=== PATIENT | female | born 1970 | race Caucasian/White ===

== ENCOUNTER 2020-04-14 15:20 | Emergency (ER) | payer BC, SELFPAY ==
[2020-04-14] VITALS (8 sets, daily range): BP systolic 103–125; BP diastolic 65–92; PULSE 68–106; RESP 13–34; TEMP 36.6; O2SAT 96–100
--- NOTE | ~2020-04-14 | XR_ITS ---
EXAMINATION: XR chest 1V portable EXAM DATE: 04/14/2020 17:42 INDICATION: Fever, cough, fatigue. Exposure to COVID 19. TECHNIQUE: Portable AP frontal chest x-ray was obtained. Comparison is made to prior examination from 04/21/2007. FINDINGS: There is small amount of right upper lobe ill-defined opacity, could be acute infectious pr ocess given history provided. Could be acute lung injury from SARS-CoV-2 given history provided. Ther e are no pleural effusions. The cardiomediastinal silhouette is within normal limits. There is no p neumothorax suspected. IMPRESSION: Probable small amount of acute right upper lobe airspace disease. 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
--- NOTE | 2020-04-14 17:45 | ECG_ITS ---
Measurements Intervals [place] Rate: 71 P: 40 AR: 156 QRS: 40 QRSD: 85 T: 68 QT: 373 QTc: 407 Interpretive Statements SINUS RHYTHM BASELINE ARTIFACT- V4 NORMAL ECG Electronically Signed On 04-14-2020 21:28:42 CDT by Edmundo June D.O.
[2020-04-14 18:10] LABS: Basophils Absolute Auto 0.1 K/mm3 (0.0-0.1); Basophils Percent Auto 0.7 % (0.2-1.2); Eosinophils Absolute Auto 0.1 K/mm3 (0-0.3); Eosinophils Percent Auto 0.8 % (0-4.4); Hematocrit 49.7 % (37.0-47.0); Hemoglobin 16.9 g/dL (12.0-15.0); Immature Granulocyte Absolute 0.03 K/mm3 (0.00-0.031); Immature Granulocyte Percent A 0.3 % (0-0.5); Lymphocytes Percent Auto 37.9 % (18.3-44.2); Mean Corpuscular Hemoglobin 31.5 pg (26-34); Mean Corpuscular Volume 92.6 fl (80-100); Mean Platelet Volume 10.6 fl (7.4-10.4); Monocytes Absolute Auto 0.5 K/mm3 (0.1-0.6); Neutrophils Absolute Auto 4.7 K/mm3 (1.3-6.7); Neutrophils Percent Auto 54.3 % (45.5-73.1); Platelet Count Result 305 k/mm3 (150-375); Red Blood Count 5.37 M/mm3 (4.2-5.4); Red Cell Distribution Width 12.4 % (11.5-14.5); White Blood Count 8.7 K/mm3 (4.5-10.0)
[2020-04-14 18:20] LABS: Prothrombin Time 12.5 Seconds (11.1-14.7)
[2020-04-14 18:21] LABS: Lactic Acid Reflex 1.5 mmol/L (0.7-2.1); Partial Thromboplastin Time 25.8 SECONDS (22.3-36.8)
--- NOTE | 2020-04-14 18:22 | ED.FEVER ---
HPI - Fever General Chief Complaint: Upper Respiratory Infection Stated Complaint: weakness, fevers, chest tightness Time Seen by Provider: 04/14/20 17:30 Source: patient Mode of arrival: ambulatory Limitations: no limitations History of Present Illness HPI Narrative: This is a 49 year old female that presents to the ER for fever x 3 days. Also reports shortness of breath which is chronic for her. Reports intermittent right sided chest pain. Reports she had a Covid test today which was negative. Denies cough, sore throat, congestion, abdominal pain, vomiting, or dysuria. Related Data Allergies Allergy/AdvReac Type Severity Reaction Status Date / Time No Known Allergies Allergy Verified 04/14/20 15:48 Review of Systems Review of Systems: Narrative: CONSTITUTIONAL: Reports fever ENT: Denies rhinorrhea, congestion, sore throat CARDIOVASCULAR: Reports chest pain. Denies edema. RESPIRATORY: Reports dyspnea. Denies cough GASTROINTESTINAL: Denies abdominal pain, nausea, vomiting GENITOURINARY: Denies dysuria All systems reviewed & are unremarkable except as noted in HPI and below PMFSH Past Medical History Medical History (Updated 04/14/20 @ 19:15 by Chika Norman PA-C) Bipolar disorder Social History Social History (Updated 04/14/20 @ 18:26 by Chika Norman PA-C) Smoking status: Current every day smoker Exam Narrative: Exam Narrative: GENERAL: Well-appearing, well-nourished, and in no acute distress. HEAD: Normocephalic, atraumatic. EYES: EOMI. ENT: Nares clear, no rhinorrhea or epistaxis. Mucous membranes moist. Oropharynx without tonsillar hypertrophy exudate or other lesions. Bilateral TMs pearly adamson non-bulging NECK: Supple. No adenopathy or masses. CHEST: Clear to auscultation. No respiratory distress. No wheezes rales or rhonchi HEART: Regular rate and rhythm. No murmur heard. Normal peripheral pulses. ABDOMEN: Soft, nontender, nondistended, normal active bowel sounds. EXTREMITIES: Normal range of motion. No edema. SKIN: Warm, dry, no rash. NEURO: No focal deficits. Alert and oriented x3. PSYCH: Normal mood and affect Course Vital Signs Vital signs: Vital Signs Temperature 97.9 F 04/14/20 15:46 Pulse Rate 106 H 04/14/20 15:46 Respiratory Rate 16 04/14/20 15:46 Blood Pressure 125/92 H 04/14/20 15:46 Pulse Oximetry 100 04/14/20 15:46 Temperature 97.9 F 04/14/20 15:46 Pulse Rate 77 04/14/20 18:00 Respiratory Rate 18 04/14/20 18:00 Blood Pressure 115/65 04/14/20 18:00 Pulse Oximetry 98 04/14/20 18:00 MDM - Fever MDM Narrative Medical decision making narrative: Patient presents to the ER for shortness of breath and fever. She is afebrile and nontoxic-appearing. Oxygen saturation has remained normal on room air. CBC is without leukocytosis. CMP is without acute findings. CRP and lactic are normal. D dimer and troponin are normal. Chest XR with evidence of possible pneumonia. Had a covid swab today which was negative. Patient will be treated with oral antibiotics. She is stable and felt appropriate for further outpatient evaluation. She was given warnings to return to the ER Lab Data Attestation: I reviewed the patient's lab results. Result diagrams: 04/14/20 18:05 04/14/20 18:05 Labs: Lab Results 04/14/20 04/14/20 04/14/20 Range/Units 18:05 18:05 18:05 WBC 8.7 (4.5-10.0) K/mm3 RBC 5.37 (4.2-5.4) M/mm3 Hgb 16.9 H (12.0-15.0) g/dL Hct 49.7 H (37.0-47.0) % MCV 92.6 (80-100) fl MCH 31.5 (26-34) pg MCHC 34.0 (32-36) g/dl RDW 12.4 (11.5-14.5) % Plt Count 305 (150-375) k/mm3 MPV 10.6 H (7.4-10.4) fl Immature Gran % (Auto) 0.3 (0-0.5) % Neut % (Auto) 54.3 (45.5-73.1) % Lymph % (Auto) 37.9 (18.3-44.2) % [place] % (Auto) 6.0 (2.6-8.5) % Eos % (Auto) 0.8 (0-4.4) % Baso % (Auto) 0.7 (0.2-1.2) % Lymph # (Auto) 3.30 H (0.9-3.2) K/mm3 [place] # (Auto) 0.5
[2020-04-14 18:23] LABS: D Dimer 0.48 ug/mL (<0.48)
[2020-04-14 18:27] LABS: Alanine Aminotransferase 19 U/L (4-35); Albumin Level 4.6 g/dL (3.5-5.1); Alkaline Phosphatase 85 U/L (38-126); Anion Gap 8 mmol/L (8-16); Aspartate Amino Transferase 24 U/L (14-36); Bilirubin,Total 0.7 mg/dL (0.2-1.3); Blood Urea Nitrogen 16 mg/dL (7-17); CRP < 0.5 mg/dL (<1.0); Carbon Dioxide 30 mmol/L (22-30); Chloride 103 mmol/L (98-107); Estimated CRCL calculation 73 ml/min; Estimated Glomerular Filt Rate 58; Glucose 99 mg/dL (65-105); Lipase 80 U/L (23-300); Sodium 141 mmol/L (137-145)
[2020-04-14 18:35] LABS: Troponin I < 0.012 ng/mL (0.000-0.034)
[2020-04-14 19:28] LABS: Add Urine Microscopic? NO; Appearance Urine Clear (Clear); Bilirubin Urine Negative (Negative); Blood Urine Negative (Negative); Color Urine Yellow (Yellow); Glucose Urine UA Negative (Negative); Ketones Urine Negative (Negative); Leukocyte Esterase Ur Negative LEU/UL (Negative); Mucus Urine Rare /lpf; Nitrate Urine Negative (Negative); Protein Urine Negative (Negative); RBC Urine 0-2 /hpf (0-2); Specific Grav Ur 1.025 (1.001-1.035); Squamous Epithelial Cell Urine Moderate /hpf (Few); Urobilinogen Urine Negative mg/dL (<2.0); WBC Urine 0-3 /hpf
== END 2020-04-14 19:47 | disposition home or self-care (01) ==
PROVIDERS: Physician Assistant; Emergency Provider Emergency Medicine; PCP Family Medicine
DX: J18.9 Pneumonia, unspecified organism (principal); F17.200 Nicotine dependence, unspecified, uncomplicated
CPT/HCPCS: 36415; 71045; 80053; 81003; 83605; 83690; 84484; 85025; 85380; 85610; 85730; 86140; 87804; 93005; 99284

== ENCOUNTER 2020-05-06 13:33 | Emergency (ER) | payer BC, SELFPAY ==
--- NOTE | ~2020-05-06 | XR_ITS ---
EXAMINATION: XR chest 2V DATE: 05/06/2020 13:58 INDICATION: Chest and back pain TECHNIQUE: AP and lateral views of the chest are obtained. COMPARISON: 04/14/2020 FINDINGS: The lungs are free of acute opacities. Previously described subtle opacity of the right upp er lobe does not persist. There is no pleural effusion or pneumothorax. The cardiomediastinal silhoue tte is normal. There is moderate thoracic spondylosis. IMPRESSION: 1. No acute cardiopulmonary abnormality. 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
[2020-05-06 13:45] VITALS: BP 125/74; PULSE 119; RESP 16; TEMP 36.9; O2SAT 98
--- NOTE | 2020-05-06 13:47 | ED.URI ---
HPI - URI/Sore Throat General Chief Complaint: Upper Respiratory Infection Stated Complaint: I think I still have pneumonia Source: patient Mode of arrival: ambulatory Limitations: no limitations History of Present Illness HPI Narrative: Brie Neal is a 49 yo female with a PMH of bipolar disorder , HTN, who comes to express care with same symptoms as when I had pneumonia a few weeks ago - back pain, fatigue Related Data Home Medications Medication Instructions Recorded Confirmed buspirone 10 mg PO DAILY 05/06/20 05/06/20 cariprazine [Vraylar] 6 mg PO DAILY 05/06/20 05/06/20 clonazepam 0.5 mg PO TID 05/06/20 05/06/20 clonazepam 1 mg PO BID 05/06/20 05/06/20 duloxetine 30 mg PO DAILY 05/06/20 05/06/20 quetiapine 25 mg PO DAILY 05/06/20 05/06/20 quetiapine 50 mg PO DAILY 05/06/20 05/06/20 Allergies Allergy/AdvReac Type Severity Reaction Status Date / Time No Known Allergies Allergy Verified 05/06/20 13:45 Review of Systems Review of Systems: Narrative: CONSTITUTIONAL: Denies fever, chills, sweats.feels poorly EYES: Denies visual changes, redness, discharge. ENT: Denies rhinorrhea, congestion, sore throat, otalgia. CARDIOVASCULAR: Denies chest pain, palpitations, edema.has back pain RESPIRATORY: Denies dyspnea, wheezing, cough GASTROINTESTINAL: Denies abdominal pain, nausea, vomiting, diarrhea. GENITOURINARY: Denies dysuria, hematuria, abnormal discharge SKIN: Denies rash or itching. NEUROLOGIC: Denies numbness, or focal weakness. PSYCHIATRIC: Denies anxiety or depression. [facility] Past Medical History Medical History (Updated 05/06/20 @ 14:28 by Radha Weldon CNP) Bipolar affect, depressed Bipolar disorder HTN (hypertension) Upper respiratory infection Family History Family History Other No active medical problems Social History Social History Smoking status: Current every day smoker Comments At time of signature, I agree with nursing past medical, surgical, social and family history. There is no relevant family history pertinent to the presenting complaint. Exam Narrative: Exam Narrative: GENERAL: This is a well-nourished, well-developed patient, in moderate distress. HEAD: normocephalic, atraumatic. EYES: PERRL. Sclera clear/white. Vision is grossly intact. EARS: External ears normal, auditory canals clear and without drainage, TMs normal without perforation. Hearing grossly intact. NOSE: External nose normal without nasal discharge, nares without redness, no rhinorrhea. THROAT: Mucous membranes moist, NECK: Neck supple, CARDIOVASCULAR: Tachycardic rate and rhythm without murmurs, gallops, or rubs. RESPIRATORY: Clear to auscultation. Breath sounds equal bilaterally. No wheezes, rales, or rhonchi. GASTROINTESTINAL: Abdomen soft, SKIN: warm, intact with no suspicious lesions or rash, good texture and turgor. NEURO: awake, alert, and oriented to person, place and time. There were no obvious focal neurologic abnormalities. Steady gait EXTREMITIES: Normal range of motion. BACK:tender mid-thoracic without deformity Course Course Emergency Course: Patient came here with back pain and not feeling well for the last couple of days; states she feels similar to when she was seen in the ER few weeks ago X-ray done- negative reading Started on prednsione and flexeril- refer for covid testing Vital Signs Vital signs: Vital Signs Temperature 98.4 F 05/06/20 13:45 Pulse Rate 119 H 05/06/20 13:45 Respiratory Rate 16 05/06/20 13:45 Blood Pressure 125/74 05/06/20 13:45 Pulse Oximetry 98 05/06/20 13:45 Temperature 98.4 F 05/06/20 13:45 Pulse Rate 119 H 05/06/20 13:45 Respiratory Rate 16 05/06/20 13:45 Blood Pressure 125/74 05/06/20 13:45 Pulse Oximetry 98 05/06/20 13:45 MDM - URI/Sore Throat Differential Diagnosis Differential diagnosis: Amanda
== END 2020-05-06 14:32 | disposition home or self-care (01) ==
PROVIDERS: Emergency Provider Nurse Practitioner; PCP Family Medicine
DX: J06.9 Acute upper respiratory infection, unspecified (principal); Z20.828 Contact with and (suspected) exposure to other viral communicable diseases; I10 Essential (primary) hypertension; F31.9 Bipolar disorder, unspecified
CPT/HCPCS: 71046; 99213; G0463

== ENCOUNTER 2020-05-10 06:39 | Outpatient (NON) | payer BC, SELFPAY ==
[2020-05-10 23:55] LABS: SARS-CoV-2 RNA PCR Negative
== END 2020-05-10 06:40 ==
LOC: ANHCOVIDDT 06:59
PROVIDERS: Visit Provider Nurse Practitioner
DX: J06.9 Acute upper respiratory infection, unspecified (principal); Z20.828 Contact with and (suspected) exposure to other viral communicable diseases
CPT/HCPCS: 87635; C9803; U0003

== ENCOUNTER 2020-10-02 08:58 | Outpatient (CLI) | payer BC, SELFPAY ==
--- NOTE | ~2020-10-02 | US_ITS ---
EXAMINATION: US thyroid DATE: 10/02/2020 09:52 INDICATION: Nontoxic single thyroid nodule. TECHNIQUE: Multiple ultrasound images of the thyroid were obtained. COMPARISON: Ultrasound 01/22/2019, 02/19/2019, 04/28/11 FINDINGS: The right thyroid lobe measures 6.5 x 1.3 x 2.0 cm. The left thyroid lobe measures 5.2 x 1.5 x 1.8 c m. In the right thyroid lobe, there is a 1.7 cm solid, hypoechoic, [id number]-[id number]-[id number] nodule with ill-d efined margin without echogenic foci (TI-RADS TR4), stable from 02/19/2019, when biopsy was benign. In the right thyroid lobe, there is a 1.1 cm solid, hypoechoic, [id number]-[id number] nodule with ill-defined margin without echogenic foci (TR4), stable from 04/28/11. IMPRESSION: 1. Stable thyroid nodules, likely benign. The scheduled biopsy was canceled. 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
== END 2020-10-02 08:59 | disposition home or self-care (01) ==
PROVIDERS: PCP Family Medicine; Visit Provider Internal Medicine Endocrinology, Diabetes & Metabolism
DX: E04.2 Nontoxic multinodular goiter (principal)
CPT/HCPCS: 76536

== ENCOUNTER 2021-04-07 09:29 | Emergency (ER) | payer MEDICARE, MEDICAID, SELFPAY ==
[2021-04-07 09:37] VITALS: BP 123/100; PULSE 115; RESP 16; TEMP 35.8; O2SAT 99
[2021-04-07 09:52] VITALS: BP 123/100; PULSE 115; RESP 16; TEMP 35.8; O2SAT 99
== END 2021-04-07 10:00 | disposition left against medical advice (07) ==
PROVIDERS: Emergency Provider Internal Medicine Hematology & Oncology; PCP Family Medicine
DX: Z53.21 Procedure and treatment not carried out due to patient leaving prior to being seen by health care provider (principal)
CPT/HCPCS: 99199

== ENCOUNTER 2021-04-07 10:30 | Emergency (ER) | payer MEDICARE, MEDICAID, SELFPAY ==
--- NOTE | ~2021-04-07 | US_ITS ---
US venous doppler LE RT DATE: 04/07/2021 12:03 INDICATION: Right knee and calf pain, edema TECHNIQUE: Real-time imaging and Doppler analysis of the veins of the right lower extremity COMPARISON: None FINDINGS: The right greater saphenous vein is patent. There is spontaneous and phasic flow and normal augmentation and color flow signal and normal compression of the deep veins of the right leg. IMPRESSION: Negative Reviewed, dictated and finalized at Location A. 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 IMPRESSION: Negative
--- NOTE | ~2021-04-07 | XR_ITS ---
XR knee RT min 4V DATE: 04/07/2021 11:47 INDICATION: Right knee posterolateral pain and swelling TECHNIQUE: 4 views including crosstable lateral COMPARISON: None FINDINGS: There is prominent suprapatellar knee joint effusion. There is mild periarticular spurring of the patella. There is enthesopathy of the superior pole of th e patella at the quadriceps tendon insertion. There is mild periarticular spurring at the medial compartment, mild loss of height of the department joint space. No radiopaque intra-articular loose body or chondrocalcinosis. No fracture, dislocation, periosteal reaction or bone destruction is detected. 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
[2021-04-07 10:33] VITALS: BP 138/86; PULSE 105; RESP 22; TEMP 36.4; O2SAT 100
[2021-04-07 11:01] VITALS: BP 138/86; PULSE 98; RESP 20; O2SAT 100
[2021-04-07 11:33] LABS: Basophils Absolute Auto 0.1 K/mm3 (0.0-0.1); Basophils Percent Auto 0.8 % (0.2-1.2); Eosinophils Absolute Auto 0.1 K/mm3 (0-0.3); Eosinophils Percent Auto 1.7 % (0-4.4); Hematocrit 41.1 % (37.0-47.0); Hemoglobin 13.7 g/dL (12.0-15.0); Immature Granulocyte Absolute 0.02 K/mm3 (0.00-0.031); Immature Granulocyte Percent A 0.3 % (0-0.5); Lymphocytes Absolute Auto 2.99 K/mm3 (0.9-3.2); Lymphocytes Percent Auto 42.3 % (18.3-44.2); Mean Corpuscular HGB Conc 33.3 g/dl (32-36); Mean Corpuscular Hemoglobin 31.6 pg (26-34); Mean Corpuscular Volume 94.7 fl (80-100); Monocytes Absolute Auto 0.5 K/mm3 (0.1-0.6); Monocytes Percent Auto 6.9 % (2.6-8.5); Neutrophils Absolute Auto 3.4 K/mm3 (1.3-6.7); Platelet Count Result 253 k/mm3 (150-375); Red Blood Count 4.34 M/mm3 (4.2-5.4); Red Cell Distribution Width 13.8 % (11.5-14.5); White Blood Count 7.1 K/mm3 (4.5-10.0)
--- NOTE | 2021-04-07 11:33 | ED.EXTPRO ---
HPI - Extremity Problem General Chief complaint: Extremity Problem,Nontraumatic Stated complaint: R leg pain Time Seen by Provider: 04/07/21 11:25 Source: patient Mode of arrival: ambulatory Limitations: no limitations History of Present Illness HPI Narrative: This is a 50 year old female that presents to the ER for right lower extremity pain x 5 days. Reports pain and swelling in the right knee. Also notes swelling and pain in the right calf. Pain is worse with movement and relieved with rest. Denies fever, erythema, decreased ROM, or numbness. Related Data Home Medications Medication Instructions Recorded Confirmed buspirone 10 mg PO DAILY 05/06/20 04/07/21 cariprazine [Vraylar] 6 mg PO DAILY 05/06/20 04/07/21 clonazepam 0.5 mg PO TID 05/06/20 04/07/21 duloxetine 30 mg PO DAILY 05/06/20 04/07/21 quetiapine 50 mg PO DAILY 05/06/20 04/07/21 atorvastatin 20 mg tablet 20 mg PO QHS 12/29/20 04/07/21 calcium carbonate 600 mg calcium 600 mg PO DAILY 12/29/20 04/07/21 (1,500 mg) tablet cholecalciferol (vitamin D3) 50 50 mcg PO DAILY 12/29/20 04/07/21 mcg (2,000 unit) capsule divalproex 500 mg tablet,extended 500 mg PO DAILY 12/29/20 04/07/21 release 24 hr folic acid 400 mcg tablet 0.4 mg PO DAILY 12/29/20 04/07/21 levothyroxine 50 mcg tablet 50 mcg PO DAILY 12/29/20 04/07/21 magnesium oxide 400 mg PO DAILY 12/29/20 04/07/21 metformin 500 mg tablet 500 mg PO BID 12/29/20 04/07/21 prazosin 1 mg capsule 1 mg PO QHS 12/29/20 04/07/21 venlafaxine 37.5 mg 37.5 mg PO DAILY 12/29/20 04/07/21 capsule,extended release 24 hr Allergies Allergy/AdvReac Type Severity Reaction Status Date / Time No Known Allergies Allergy Verified 04/07/21 11:00 Review of Systems Review of Systems: CONSTITUTIONAL: Denies fever SKIN: Denies rash MUSCULOSKELETAL: Reports joint pain, and myalgia. NEUROLOGIC: Denies numbness, or weakness. All systems reviewed & are unremarkable except as noted in HPI and below PMFSH Past Medical History Medical History Bipolar affect, depressed Bipolar disorder DDD (degenerative disc disease) Diabetes HTN (hypertension) Hypothyroidism Upper respiratory infection Family History Family History Father Alcohol abuse Hypertension Cerebrovascular accident Acute myocardial infarction Mother Alcohol abuse Asthma Son Non-Hodgkins lymphoma Grandparent Lung cancer non-smoker Grandparent Stomach cancer Other No active medical problems Social History Social History Smoking packs per day: 1 Smoking cigarettes per day: 20.0 Years smoked: 35 Smoking pack-years: 35.00 Tobacco type: cigarettes Alcohol intake: never Substance use: current Substance use type: marijuana Other substance usage details: daily Agree to blood products: Yes Exam Narrative: GENERAL: Well-appearing, well-nourished, and in no acute distress. HEAD: Normocephalic, atraumatic. EYES: EOMI. CHEST: Clear to auscultation. No respiratory distress. No wheezes rales or rhonchi HEART: Regular rate and rhythm. No murmur heard. Normal peripheral pulses. EXTREMITIES: Normal range of motion. No erythema or warmth of the right leg. Mild edema about the right calf, tender to palpation. Normal DP pulses. Normal sensation SKIN: Warm, dry, no rash. NEURO: No focal deficits. Alert and oriented x3. PSYCH: Normal mood and affect Course Vital Signs Vital signs: Vital Signs Temperature 97.6 F 04/07/21 10:33 Pulse Rate 105 H 04/07/21 10:33 Respiratory Rate 22 H 04/07/21 10:33 Blood Pressure 138/86 04/07/21 10:33 Pulse Oximetry 100 04/07/21 10:33 Temperature 97.6 F 04/07/21 10:33 Pulse Rate 98 04/07/21 11:01 Respiratory Rate 20 04/07/21 11:01 Blood Pressure 138/86 04/07
[2021-04-07 11:42] LABS: INR 0.8; Prothrombin Time 11.1 Seconds (11.1-14.7)
[2021-04-07 11:43] LABS: Alanine Aminotransferase 19 U/L (4-35); Albumin Level 4.4 g/dL (3.5-5.1); Alkaline Phosphatase 77 U/L (38-126); Anion Gap 6 mmol/L (8-16); Aspartate Amino Transferase 22 U/L (14-36); Bilirubin,Total 0.4 mg/dL (0.2-1.3); Blood Urea Nitrogen 13 mg/dL (7-17); Calcium 9.2 mg/dL (8.4-10.2); Carbon Dioxide 27 mmol/L (22-30); Chloride 105 mmol/L (98-107); Estimated CRCL calculation 80 ml/min; Estimated Glomerular Filt Rate > 60; Glucose 110 mg/dL (65-110); Partial Thromboplastin Time 25.8 SECONDS (22.3-36.8); Sodium 138 mmol/L (137-145)
[2021-04-07 11:52] LABS: NT Pro B Type Natriuretic Pept 32 pg/mL (5-100)
[2021-04-07] MEDS: HYDROcodone/acetaminophen (*CRX) 5-325 MG TABLET 1 TAB PO (12:00)
[2021-04-07 12:12] LABS: CRP < 0.5 mg/dL (<1.0)
[2021-04-07 12:19] LABS: Erythrocyte Sedimentation Rate 28 mm/hr (0-20)
[2021-04-07 13:49] VITALS: BP 142/66; PULSE 80; RESP 18; O2SAT 99
== END 2021-04-07 13:50 | disposition home or self-care (01) ==
PROVIDERS: Physician Assistant; Emergency Provider Emergency Medicine; PCP Family Medicine
DX: M70.51 Other bursitis of knee, right knee (principal); E11.9 Type 2 diabetes mellitus without complications; I10 Essential (primary) hypertension; E03.9 Hypothyroidism, unspecified; F17.210 Nicotine dependence, cigarettes, uncomplicated; Z79.84 Long term (current) use of oral hypoglycemic drugs
CPT/HCPCS: 36415; 73564; 80053; 83880; 85025; 85380; 85610; 85652; 85730; 86140; 93971; 99284; A9270

== ENCOUNTER 2021-04-11 07:42 | Outpatient (CLI) | payer MEDICARE, MEDICAID, SELFPAY ==
--- NOTE | 2021-04-23 16:28 | WPDSLEEPSTUD ---
Sleep Study Date of Study: 04/11/21 <Holly Brannon, DO - Last Filed: 04/23/21 17:35> Ordering Provider: Tiarra CondeMD <Holly Brannon, - Last Filed: 04/23/21 17:35> Interpreting Physician: Holly Brannon DO <Holly Brannon, DO - Last Filed: 04/23/21 17:35> Sleep Study Type: Polysomnogram <Holly Brannon, DO - Last Filed: 04/23/21 17:35> Height: 1.7 m <Holly Brannon DO - Last Filed: 04/23/21 17:35> Weight: 108.862 kg <Holly Brannon DO - Last Filed: 04/23/21 17:35> Body Mass Index: 37.5 <Holly Brannon DO - Last Filed: 04/23/21 17:35> Neck Circumference (inches): 15 <Holly Brannon DO - Last Filed: 04/23/21 17:35> [place]: 16 <Holly Brannon DO - Last Filed: 04/23/21 17:35> Reason for Sleep Study Unrefreshing sleep and excessive daytime sleepiness. <Holly Brannon, DO - Last Filed: 04/23/21 17:35> Sleep History The patient is a 50-year-old female with bipolar disorder, type 2 diabetes and hypothyroidism that had a sleep study ordered by her primary care for sleep disturbances. The patient states that she gets electric shocks and peers seizure does in her legs and feet. She also gets nightmares if she does not take her prazosin. She has tried muscle relaxants and gabapentin for the leg pain without relief She states that this is been going on for more than 2 years. She states that she rarely awakens from sleep short of breath. She denies awakening at night with heartburn, belching or cough. She denies snoring loudly enough that others complain. She often has trouble sleeping when she has cold. She denies waking up gasping for air throughout the night. She denies having breathing problems at night observed by others. She constantly sweats excessively at night. She occasionally has heart palpitations throughout the night. She frequently falls asleep during the day but never while driving. She occasionally feels unable to move when waking up or falling asleep. She occasionally experiences vivid dreamlike scenes upon awakening or falling asleep. She occasionally has nightmares. She frequently has thoughts racing through her mind. She occasionally feels sad or depressed and frequently feels anxious. She frequently has muscular tension and notices parts of her body jerk. She occasionally kicks throughout the night. She frequently experiences crawling and aching feelings in her legs as well as leg pain during the night. She rarely grinds her teeth during sleep and never awakens with jaw pain in the morning. She is constantly bothered by pain during the day and is frequently awakened by pain during the night. She frequently wakes up feeling stiff in the morning with sore and achy muscles. The patient goes to bed any time from 11:00 p.m. to 2:00 a.m. on both the weekdays and weekends. She is unsure how long it takes her to fall asleep. She wakes up 1-2 times throughout the night to use the restroom. She is able to go right back to sleep after awakening. She wakes any time from 6-7 a.m. on both the weekdays and weekends. She usually gets 6 hours of sleep per night. She will stay in bed for 30-60 minutes after awakening. She currently lives with her mother, father, son, [id number] and 2 grandchildren. She does not currently work. She does not drink any caffeinated beverages within 2 hours of going to bed. She does not engage in physical exercise before bedtime. she will watch television before falling asleep. She will take naps in the afternoon or evening but they are not refreshing. She currently smokes half a pack of cigarettes per day. She will drink 3 Pepsi's per day. Shestates that she uses marijuana heavily. <Holly Brannon DO - Last Filed: 04/23/21 17:35> [facility] Past Medical History Medical History: Medical History B
[2021-04-23 16:52] VITALS: BMI 37.5
== END 2021-04-12 07:03 | disposition home or self-care (01) ==
LOC: ANHCSM 07:43
PROVIDERS: PCP Family Medicine; Visit Provider Internal Medicine Endocrinology, Diabetes & Metabolism
DX: G47.34 Idiopathic sleep related nonobstructive alveolar hypoventilation (principal); G47.61 Periodic limb movement disorder
CPT/HCPCS: 95810

== ENCOUNTER 2021-04-30 15:42 | Outpatient (CLI) | payer MEDICARE, MEDICAID, SELFPAY ==
--- NOTE | ~2021-04-30 | MR_ITS ---
EXAMINATION: MR lumbar spine wo con EXAM DATE: 04/30/2021 17:03 INDICATION: Lumbar radiculopathy. Low back pain, chronic. TECHNIQUE: Multi-sequential, multiplanar MR images of the lumbar spine were obtained without contrast . Sagittal T1, T2, T2 fat saturation images. Axial T2 weighted images. There is no prior study for comparison. FINDINGS: There is mild to moderate disc disease L-1-2, L2-3, L5-S1. There is 2 mm retrolisthesis L4 on L5, 3 mm retrolisthesis L5 on S1. The conus medullaris terminates at the L1/2 level and has normal signal intensity and morphology. There are no suspicious marrow signal abnormalities. Paraspinal so ft tissue is unremarkable. Level by level evaluation: T12-L1: Disc does not extend beyond the endplate margin. Facet arthropathy: Mild. Neural foraminal stenosis: No stenosis. Central canal stenosis: No stenosis. L1-L2: There is a mild diffuse disc bulge. Facet arthropathy: Mild to moderate. Neural foraminal stenosis: No stenosis. Central canal stenosis: No stenosis. L2-L3: There is a mild to moderate diffuse disc bulge. Facet arthropathy: Moderate. Neural foraminal stenosis: Mild bilateral. Central canal stenosis: Mild. L3-L4: There is a mild to moderate diffuse disc bulge. Facet arthropathy: Moderate. Neural foraminal stenosis: Mild bilateral. Central canal stenosis: Mild. L4-L5: There is a mild to moderate diffuse disc bulge. Facet arthropathy: Moderate. Neural foraminal stenosis: Mild to moderate bilateral. Central canal stenosis: Mild to moderate. L5-S1: There is a mild to moderate diffuse disc bulge. Facet arthropathy: Moderate. Neural foraminal stenosis: Moderate. Central canal stenosis: Mild. IMPRESSION: Up to moderate lumbar facet arthropathy and L5-S1 neural foraminal stenosis. 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
== END 2021-04-30 15:43 | disposition home or self-care (01) ==
LOC: ANHIMG 15:45
PROVIDERS: PCP Family Medicine; Visit Provider Nurse Practitioner Family
DX: M54.16 Radiculopathy, lumbar region (principal); M12.88 Other specific arthropathies, not elsewhere classified, other specified site; M48.07 Spinal stenosis, lumbosacral region
CPT/HCPCS: 72148

== ENCOUNTER 2021-05-30 13:34 | Outpatient (CLI) | payer MEDICARE, MEDICAID, SELFPAY ==
--- NOTE | ~2021-05-30 | XR_ITS ---
EXAMINATION: XR chest 2V 05/30/2021 15:12 INDICATION: Dyspnea, shortness of breath PROCEDURE: 2 view chest COMPARISON: Comparison to multiple prior studies sequentially, with oldest reviewed study dated 07/23. FINDINGS: The lungs are clear. The cardiomediastinal silhouette is within normal limits. There are no pleural effusions. There is no pneumothorax suspected. IMPRESSION: 1: NO ACUTE CARDIOPULMONARY DISEASE. Reviewed, dictated and finalized at location B. 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
--- NOTE | 2021-05-31 10:44 | WPDPFTINT ---
PFT Procedure Performed PFT Procedure Performed Spirometry with Pre/Post Bronchodilator Plethysmography (Lung Vol) Diffusing Cap (DLCO) Flow Vol Loop PFT Interpretation Lung volumes were measured with the body plethysmography method. The diminished expiratory reserve volume is due to obesity. The remaining lung volumes are unremarkable. Spirometry showed normal expiratory flow rates and a normal FEV1 to FVC ratio 72%. Following administration of a bronchodilator there was significant increase in the expiratory flow rates. Lung diffusion capacity is mildly reduced at 69% predicted. The flow volume loop is suggestive of a small airway disease. The significant response to bronchodilator may also indicate underlying obstructive airway disease. Clinical correlation advised. Impression: Spirometry and lung volumes within normal range. Mild reduction in lung diffusion capacity. Significant response to bronchodilators and flow volume loop may suggest mild underlying obstructive airway disease in the form of small airway disease. Clinical correlation advised.
== END 2021-05-30 13:35 | disposition home or self-care (01) ==
LOC: ANHPFT 13:38
PROVIDERS: PCP Family Medicine; Visit Provider Internal Medicine Endocrinology, Diabetes & Metabolism
DX: R06.00 Dyspnea, unspecified (principal)
CPT/HCPCS: 71046; 94060; 94726; 94729

== ENCOUNTER 2021-08-10 15:16 | Outpatient (CLI) | payer MEDICARE, MEDICAID, SELFPAY ==
[2021-08-10 16:32] LABS: Basophils Absolute Auto 0.1 K/mm3 (0.0-0.1); Eosinophils Absolute Auto 0.1 K/mm3 (0-0.3); Eosinophils Percent Auto 1.2 % (0-4.4); Hematocrit 45.3 % (37.0-47.0); Hemoglobin 15.2 g/dL (12.0-15.0); Immature Granulocyte Absolute 0.04 K/mm3 (0.00-0.031); Immature Granulocyte Percent A 0.4 % (0-0.5); Lymphocytes Percent Auto 40.5 % (18.3-44.2); Mean Corpuscular HGB Conc 33.6 g/dl (32-36); Mean Corpuscular Hemoglobin 31.4 pg (26-34); Mean Corpuscular Volume 93.6 fl (80-100); Mean Platelet Volume 10.8 fl (7.4-10.4); Monocytes Absolute Auto 0.6 K/mm3 (0.1-0.6); Monocytes Percent Auto 6.7 % (2.6-8.5); Neutrophils Absolute Auto 4.6 K/mm3 (1.3-6.7); Neutrophils Percent Auto 50.2 % (45.5-73.1); Platelet Count Result 276 k/mm3 (150-375); Red Blood Count 4.84 M/mm3 (4.2-5.4); Red Cell Distribution Width 13.3 % (11.5-14.5); White Blood Count 9.1 K/mm3 (4.5-10.0)
[2021-08-10 16:43] LABS: Blood Urea Nitrogen 16 mg/dL (7-17); Estimated Glomerular Filt Rate 43; Magnesium 1.9 mg/dL (1.6-2.3)
[2021-08-10 16:52] LABS: NT Pro B Type Natriuretic Pept 21 pg/mL (5-100)
[2021-08-10 16:55] LABS: Iron 88 ug/dL (37-170)
[2021-08-10 17:05] LABS: Percent Iron Saturation 29 % (20-50)
[2021-08-10 17:08] LABS: Erythrocyte Sedimentation Rate 14 mm/hr (0-20)
[2021-08-10 18:21] LABS: Folic Acid 18.7 ng/mL (2.76->20); Vitamin B12 > 1000.0 pg/mL (239-931)
[2021-08-13 15:25] LABS: Immunoglobulin G, Serum 1391 mg/dL (600-1640); Immunoglobulin G1 732 mg/dL (382-929); Immunoglobulin G2 354 mg/dL (241-700); Immunoglobulin G3 43 mg/dL (22-178); Immunoglobulin G4 132.7 mg/dL (4.0-86.0)
[2021-08-14 07:18] LABS: Immunoglobulin E 39 kU/L (<=114)
[2021-08-14 18:57] LABS: NIL 0.01 IU/mL; Quantiferon TB Plus, 1T NEGATIVE (NEGATIVE)
== END 2021-08-10 15:17 | disposition home or self-care (01) ==
LOC: ANHLAB 15:29
PROVIDERS: PCP Family Medicine; Visit Provider Internal Medicine Pulmonary Disease
DX: R05.3 Chronic cough (principal); D89.9 Disorder involving the immune mechanism, unspecified; E83.42 Hypomagnesemia; T78.40XA Allergy, unspecified, initial encounter; R06.00 Dyspnea, unspecified; D50.8 Other iron deficiency anemias
CPT/HCPCS: 36415; 82104; 82565; 82607; 82728; 82746; 82784; 82785; 82787; 83540; 83550; 83735; 83880; 84446; 84520; 85025; 85652; 86003; 86480

== ENCOUNTER 2021-08-31 09:21 | Outpatient (CLI) | payer MEDICARE, MEDICAID, SELFPAY ==
--- NOTE | ~2021-08-31 | US_ITS ---
US retroperitoneal comp 08/31/2021 11:18 Procedure: Realtime transabdominal ultrasound of the kidneys and bladder. Indication: Chronic kidney disease. Comparison: CT dated 08/14/2005 Findings: Renal echotexture is normal bilaterally without hydronephrosis, contour deforming mass or r enal calculus. The right kidney measures 11.2 cm and left kidney measures 11.1 cm. Bladder within no rmal limits. Impression: 1: Unremarkable renal ultrasound. No stones, masses or hydronephrosis. 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 No stones, masses or hydronephrosis.
[2021-08-31 10:18] LABS: Alanine Aminotransferase 18 U/L (4-35); Albumin Level 4.4 g/dL (3.5-5.1); Alkaline Phosphatase 95 U/L (38-126); Anion Gap 7 mmol/L (8-16); Aspartate Amino Transferase 25 U/L (14-36); Basophils Absolute Auto 0.1 K/mm3 (0.0-0.1); Basophils Percent Auto 0.9 % (0.2-1.2); Bilirubin,Total 0.5 mg/dL (0.2-1.3); Blood Urea Nitrogen 11 mg/dL (7-17); Calcium 9.2 mg/dL (8.4-10.2); Carbon Dioxide 25 mmol/L (22-30); Chloride 106 mmol/L (98-107); Eosinophils Absolute Auto 0.1 K/mm3 (0-0.3); Eosinophils Percent Auto 1.1 % (0-4.4); Estimated Glomerular Filt Rate > 60; Glucose 115 mg/dL (65-110); Hematocrit 46.6 % (37.0-47.0); Hemoglobin 15.4 g/dL (12.0-15.0); Immature Granulocyte Absolute 0.03 K/mm3 (0.00-0.031); Immature Granulocyte Percent A 0.4 % (0-0.5); Lymphocytes Absolute Auto 2.63 K/mm3 (0.9-3.2); Lymphocytes Percent Auto 33.1 % (18.3-44.2); Mean Corpuscular Hemoglobin 30.9 pg (26-34); Mean Corpuscular Volume 93.6 fl (80-100); Mean Platelet Volume 10.7 fl (7.4-10.4); Monocytes Absolute Auto 0.6 K/mm3 (0.1-0.6); Monocytes Percent Auto 6.9 % (2.6-8.5); Neutrophils Absolute Auto 4.6 K/mm3 (1.3-6.7); Neutrophils Percent Auto 57.6 % (45.5-73.1); Platelet Count Result 299 k/mm3 (150-375); Red Blood Count 4.98 M/mm3 (4.2-5.4); Red Cell Distribution Width 13.3 % (11.5-14.5); Sodium 138 mmol/L (137-145); Uric Acid 5.6 mg/dL (2.5-7.5); White Blood Count 7.9 K/mm3 (4.5-10.0)
[2021-08-31 10:20] LABS: Add Urine Microscopic? YES; Appearance Urine Cloudy (Clear); Bacteria Urine Trace /hpf; Bilirubin Urine Negative (Negative); Blood Urine Negative (Negative); Color Urine Amber (Yellow); Glucose Urine UA Negative (Negative); Ketones Urine Trace mg/dL (Negative); Leukocyte Esterase Ur Negative LEU/UL (Negative); Mucus Urine Rare /lpf; Nitrate Urine Negative (Negative); Protein Urine 1+ mg/dL (Negative); Specific Grav Ur 1.028 (1.001-1.035); Squamous Epithelial Cell Urine Many /hpf (Few); WBC Urine 0-3 /hpf
[2021-08-31 10:24] LABS: Complement C3 157 mg/dL (88-165)
[2021-08-31 10:25] LABS: Potassium 4.1 mmol/L (3.4-5.0)
[2021-08-31 10:28] LABS: Parathyroid Intact 37.6 pg/mL (7.5-53.5)
[2021-08-31 10:33] LABS: Potassium Urine Random 123.9 meq/L; Sodium Urine Random 63 meq/L; Total Protein Urine Random < 5 mg/dL
[2021-08-31 10:37] LABS: Microalbumin Urine Random 52.6 mg/L (0-16.7)
[2021-08-31 10:39] LABS: Vitamin D 25 Hydroxy 30.5 ng/mL
[2021-08-31 10:51] LABS: Erythrocyte Sedimentation Rate 17 mm/hr (0-20)
[2021-08-31 10:57] LABS: HIV 1/2 Ab P24 Ag Result Negative (Negative)
[2021-08-31 11:17] LABS: Creatinine Urine 478.8 mg/dL
[2021-09-02 10:47] LABS: Rapid Plasma Reagin Non-Reactive (NonReactive)
[2021-09-02 13:36] LABS: Kappa\\Lambda Light Chains 1.33 (0.26-1.65); Lambda Light Chain 23.5 mg/L (5.7-26.3)
[2021-09-02 19:08] LABS: Osmolality, Urine 908 mOsm/kg (50-1200)
[2021-09-03 21:38] LABS: Albumin 4.1 g/dL (3.8-4.8); Alpha 1 Globulin 0.4 g/dL (0.2-0.3); Alpha 2 Globulin 0.9 g/dL (0.5-0.9); Beta 1 Globulin 0.5 g/dL (0.4-0.6); Gamma Globulin 1.3 g/dL (0.8-1.7); Protein, Total 7.7 g/dL (6.1-8.1)
[2021-09-04 18:46] LABS: Chloride Rand Ur 84 mmol/L (32-290); Chloride/Creatinine Rand Ur 18 (38-318); Creatinine Random Urine 464 mg/dL (20-275)
[2021-09-04 20:42] LABS: Complement Total CH50 >60 U/mL (31-60)
[2021-09-06 13:23] LABS: ANCA Screen Negative (Negative)
[2021-09-07 16:35] LABS: Cryoglobulin, QL Negative (Negative)
== END 2021-08-31 09:22 | disposition home or self-care (01) ==
LOC: ANHIMG 09:25
PROVIDERS: PCP Family Medicine
DX: N18.30 Chronic kidney disease, stage 3 unspecified (principal); I10 Essential (primary) hypertension; R80.9 Proteinuria, unspecified; E87.2 Acidosis; D64.9 Anemia, unspecified; E11.65 Type 2 diabetes mellitus with hyperglycemia; E78.5 Hyperlipidemia, unspecified; E55.9 Vitamin D deficiency, unspecified; N14.3 Nephropathy induced by heavy metals; Z11.4 Encounter for screening for human immunodeficiency virus [HIV]
CPT/HCPCS: 36415; 76770; 80053; 81001; 81050; 82043; 82306; 82436; 82570; 82595; 83036; 83883; 83935; 83970; 84133; 84155; 84156; 84165; 84300; 84550; 85025; 85652; 86036; 86038; 86160; 86162; 86225; 86334; 86592; 86703; G0432

== ENCOUNTER 2021-09-03 10:49 | Outpatient (CLI) | payer MEDICARE, MEDICAID, SELFPAY ==
[2021-09-03 11:06] LABS: Collection Time Urine 24 HOURS
[2021-09-03 12:18] LABS: Total Protein Urine Random 8 mg/dL
[2021-09-03 12:20] LABS: Creatinine Urine 95.1 mg/dL; Patient Weight 183 Lbs
[2021-09-03 12:46] LABS: Creatinine Clearance Urine 77.7 ml/min (75-125); Total Protein Urine 24 Hr 96 mg/24hr (28-141); Total Volume 24 Hour Urine 1200 ml
== END 2021-09-03 10:50 | disposition home or self-care (01) ==
LOC: ANHLAB 10:52
PROVIDERS: PCP Family Medicine; Visit Provider Specialist
DX: N18.30 Chronic kidney disease, stage 3 unspecified (principal); I10 Essential (primary) hypertension; R80.9 Proteinuria, unspecified; D64.9 Anemia, unspecified; E11.65 Type 2 diabetes mellitus with hyperglycemia; E78.5 Hyperlipidemia, unspecified; E55.9 Vitamin D deficiency, unspecified; N39.0 Urinary tract infection, site not specified; Z11.4 Encounter for screening for human immunodeficiency virus [HIV]
CPT/HCPCS: 81050; 82575; 84156

== ENCOUNTER 2022-01-02 18:59 | Emergency (ER) | payer BC, SELFPAY ==
[2022-01-02 19:51] VITALS: BP 148/76; PULSE 98; RESP 16; TEMP 36.9; O2SAT 99
--- NOTE | 2022-01-02 21:00 | ED.EAR ---
HPI - Ear Problem General Chief complaint: Ear Stated complaint: right ear pain Time Seen by Provider: 01/02/22 21:00 Source: patient, RN notes reviewed and old records reviewed Mode of arrival: ambulatory Limitations: no limitations History of Present Illness HPI Narrative: 51-year-old female who presents to [facility] care with complaints of right ear pain since yesterday, denies any fevers, chills or sweats, no sore throat or any sinus congestion or drainage. Patient reports that she initially thought she had something in it and daughter looked in it and saw white pustular material. Patient reports no recent swimming. MD Complaint: ear pain Location: right ear Related Data Home Medications Medication Instructions Recorded Confirmed buspirone 10 mg tablet 10 mg PO DAILY 05/06/20 01/02/22 cariprazine 6 mg capsule (Vraylar) 6 mg PO DAILY 05/06/20 01/02/22 atorvastatin 20 mg tablet 20 mg PO QHS 12/29/20 01/02/22 calcium carbonate 600 mg calcium 600 mg PO DAILY 12/29/20 01/02/22 (1,500 mg) tablet (Calcium) cholecalciferol (vitamin D3) 50 50 mcg PO DAILY 12/29/20 01/02/22 mcg (2,000 unit) capsule divalproex 500 mg tablet,extended 500 mg PO DAILY 12/29/20 01/02/22 release 24 hr folic acid 400 mcg tablet 0.4 mg PO DAILY 12/29/20 01/02/22 levothyroxine 50 mcg tablet 50 mcg PO DAILY 12/29/20 01/02/22 (Euthyrox) metformin 500 mg tablet 500 mg PO BID 12/29/20 01/02/22 venlafaxine 37.5 mg 37.5 mg PO DAILY 12/29/20 01/02/22 capsule,extended release 24 hr fluticasone furoate 100 1 inh inhalation DAILY 09/17/21 01/02/22 mcg-vilanterol 25 mcg/dose inhalation powder (Breo Ellipta) mecobalamin (vitamin B12) 10,000 10,000 mcg subcut .qm 09/17/21 01/02/22 mcg solution for injection Allergies Allergy/AdvReac Type Severity Reaction Status Date / Time No Known Allergies Allergy Verified 01/02/22 19:01 Review of Systems Review of Systems: CONSTITUTIONAL: Denies fever, chills, or sweats. EYES: Denies visual changes, redness, or discharge. ENT: Denies rhinorrhea, congestion, sore throat, right ear otalgia. CARDIOVASCULAR: Denies chest pain, palpitations, or edema. RESPIRATORY: Denies cough or dyspnea. GASTROINTESTINAL: Denies abdominal pain, nausea, vomiting, or diarrhea. GENITOURINARY: Denies dysuria or hematuria. SKIN: Denies rash or itching. MUSCULOSKELETAL: Chronic back pain, joint pain, or myalgia. NEUROLOGIC: Denies headache, numbness, or weakness. PSYCHIATRIC:Positive for anxiety or depression. All systems reviewed & are unremarkable except as noted in HPI and below PMFSH Past Medical History Medical History Asthma Bipolar affect, depressed Bipolar disorder DDD (degenerative disc disease) Diabetes HTN (hypertension) Hypothyroidism Stage 2 chronic kidney disease Upper respiratory infection Family History Family History Father Alcohol abuse Hypertension Cerebrovascular accident Acute myocardial infarction Mother Alcohol abuse Asthma Son Non-Hodgkins lymphoma Grandparent Lung cancer non-smoker Grandparent Stomach cancer Other No active medical problems Social History Social History Smoking packs per day: 1 Smoking cigarettes per day: 20.0 Years smoked: 35 Smoking pack-years: 35.00 Tobacco type: cigarettes Alcohol intake: never Substance use: current Substance use type: marijuana Other substance usage details: daily Agree to blood products: Yes Comments At time of signature, agree with nursing past medical, surgical, social and family history. There is no relevant family history pertinent to the presenting complaint Exam Narrative: GENERAL: Well-appearing, well-nourished, and in no acute distress. HEAD: Normocephalic, atraumatic. EYES: PERRLA and EOMI.
== END 2022-01-02 21:20 | disposition home or self-care (01) ==
PROVIDERS: Emergency Provider Registered Nurse
DX: H60.91 Unspecified otitis externa, right ear (principal); F17.210 Nicotine dependence, cigarettes, uncomplicated; E03.9 Hypothyroidism, unspecified; I12.9 Hypertensive chronic kidney disease with stage 1 through stage 4 chronic kidney disease, or unspecified chronic kidney disease; E11.22 Type 2 diabetes mellitus with diabetic chronic kidney disease; N18.2 Chronic kidney disease, stage 2 (mild); Z79.84 Long term (current) use of oral hypoglycemic drugs; J45.909 Unspecified asthma, uncomplicated; F31.9 Bipolar disorder, unspecified
CPT/HCPCS: 99213; G0463

== ENCOUNTER 2022-04-01 12:51 | Outpatient (CLI) | payer MEDICARE, SELFPAY ==
--- NOTE | ~2022-04-01 | XR_ITS ---
EXAM: XR lumbar spine 2-3V DATE: 04/01/2022 13:19 HISTORY: PAIN,RADICULOPATHY . COMPARISON: None available. FINDINGS: 5 nonrib-bearing lumbar-type vertebral bodies. Pedicles intact. Mild retrolisthesis at L2- 3 and L5-S1. Vertebral body heights preserved. Multilevel disc space narrowing and marginal osteophyt osis. Severe disc space narrowing and vacuum phenomenon at L5-S1. Multilevel facet hypertrophy and sc lerosis. Minimal aortic calcifications without evident aneurysm. No fracture or dislocation. IMPRESSION: Multilevel degenerative disc disease, severe at L5-S1. Multilevel grade 1 listheses. Mult ilevel facet arthropathy. Reviewed, dictated and finalized at location K. IMPRESSION: Multilevel degenerative disc disease, severe at L5-S1. Multilevel g rade 1 listheses. Multilevel facet arthropathy.
--- NOTE | ~2022-04-01 | XR_ITS ---
EXAM: XR cervical spine 4-5V DATE: 04/01/2022 13:19 HISTORY: PAIN,RADICULOPATHY . COMPARISON: None available. FINDINGS: Craniocervical association and atlantoaxial joint are normal. No prevertebral soft tissue swelling. Vertebral bodies are aligned. Vertebral body heights are maintained. Mild disc space narrow ing and moderate marginal osteophytosis at C5-6. Multilevel facet sclerosis and hypertrophy. IMPRESSION: Moderate degenerative disc disease at C5-6. Mild multilevel facet arthropathy. Reviewed, dictated and finalized at location K. IMPRESSION: Moderate degenerative disc disease at C5-6. Mild multilevel facet a rthropathy.
--- NOTE | ~2022-04-01 | XR_ITS ---
EXAM: XR hip BI wo pelvis DATE: 04/01/2022 13:19 HISTORY: PAIN,RADICULOPATHY, CHRONIC PAIN . COMPARISON: None available. FINDINGS: Normal mineralization. No fracture or dislocation. No lytic or blastic lesion. Mild bilate ral superior hip joint space narrowing. Mild pelvic and trochanteric enthesopathy. No erosion or chica osteal change. Soft tissues within normal limits. IMPRESSION: Mild bilateral hip osteoarthritis. Reviewed, dictated and finalized at location K.
== END 2022-04-01 12:52 | disposition home or self-care (01) ==
LOC: ANHIMG 12:54
PROVIDERS: PCP Family Medicine; Visit Provider Pain Medicine Interventional Pain Medicine
DX: M47.22 Other spondylosis with radiculopathy, cervical region (principal); M47.27 Other spondylosis with radiculopathy, lumbosacral region; M16.0 Bilateral primary osteoarthritis of hip
CPT/HCPCS: 72050; 72100; 73521

== ENCOUNTER 2022-06-07 09:19 | Outpatient (CLI) | payer MEDICARE, MEDICAID, SELFPAY ==
[2022-06-07 10:16] LABS: Alanine Aminotransferase 22 U/L (6-35); Albumin Level 4.3 g/dL (3.5-5.1); Alkaline Phosphatase 87 U/L (38-126); Anion Gap 5 mmol/L (8-16); Aspartate Amino Transferase 24 U/L (14-36); Bilirubin,Total 0.5 mg/dL (0.2-1.3); Blood Urea Nitrogen 17 mg/dL (7-17); CRP < 0.5 mg/dL (<1.0); Calcium 8.7 mg/dL (8.4-10.2); Carbon Dioxide 28 mmol/L (22-30); Chloride 105 mmol/L (98-107); Estimated Glomerular Filt Rate > 60; Glucose 100 mg/dL (65-110); Potassium 4.1 mmol/L (3.4-5.0); Sodium 138 mmol/L (137-145)
[2022-06-07 10:25] LABS: Erythrocyte Sedimentation Rate 20 mm/hr (0-20)
[2022-06-07 10:42] LABS: Rheumatoid Factor < 8.6 IU/ML (<12)
[2022-06-07 10:49] LABS: Free T4 Free Thyroxine 1.07 ng/mL (0.78-2.19); Vitamin D 25 Hydroxy 34.2 ng/mL
[2022-06-07 13:41] LABS: Hemoglobin A1C 5.2 % (<5.7)
[2022-06-11 06:59] LABS: Triiodothyronine T3 Free 3.2 pg/mL (2.3-4.2)
[2022-06-11 12:24] LABS: Insulin Level Total 18.3 uIU/mL (<=19.6)
[2022-06-12 12:10] LABS: Cyclic Citrullinated Peptide <16 Units (<20)
== END 2022-06-07 09:20 | disposition home or self-care (01) ==
PROVIDERS: PCP Family Medicine; Visit Provider Nurse Practitioner
DX: M19.90 Unspecified osteoarthritis, unspecified site (principal); E55.9 Vitamin D deficiency, unspecified; R73.01 Impaired fasting glucose; E03.9 Hypothyroidism, unspecified
CPT/HCPCS: 36415; 80053; 82306; 83036; 83525; 84439; 84443; 84481; 85652; 86038; 86140; 86430

== ENCOUNTER 2022-09-13 09:35 | Outpatient (CLI) | payer MEDICARE, MEDICAID, SELFPAY ==
[2022-09-13 10:41] LABS: Hemoglobin A1C 5.1 % (<5.7)
[2022-09-13 10:45] LABS: Alanine Aminotransferase 21 U/L (6-35); Albumin Level 4.3 g/dL (3.5-5.1); Alkaline Phosphatase 86 U/L (38-126); Anion Gap 3 mmol/L (8-16); Aspartate Amino Transferase 22 U/L (14-36); Bilirubin,Total 0.8 mg/dL (0.2-1.3); Blood Urea Nitrogen 14 mg/dL (7-17); Calcium 8.7 mg/dL (8.4-10.2); Carbon Dioxide 28 mmol/L (22-30); Chloride 108 mmol/L (98-107); Cholesterol 238 mg/dL (0-200); Estimated Glomerular Filt Rate > 60; Glucose 98 mg/dL (65-110); HDL Direct 44 mg/dL; Potassium 4.1 mmol/L (3.4-5.0); Sodium 139 mmol/L (137-145); Triglycerides 167 mg/dL (<150); Uric Acid 4.6 mg/dL (2.5-7.5)
[2022-09-13 10:56] LABS: LDL Cholesterol Direct 147 mg/dL
[2022-09-13 10:58] LABS: Parathyroid Intact 20.7 pg/mL (7.5-53.5)
[2022-09-13 10:59] LABS: MALB Creatinine Ratio 3.4 mg/g (0-30)
[2022-09-13 11:00] LABS: Appearance Urine Clear (Clear); Bilirubin Urine Negative (Negative); Blood Urine Negative (Negative); Color Urine Yellow (Yellow); Glucose Urine UA Negative (Negative); Ketones Urine Negative (Negative); Leukocyte Esterase Ur Negative LEU/UL (Negative); Nitrate Urine Negative (Negative); Protein Urine Negative (Negative); Specific Grav Ur 1.024 (1.001-1.035)
[2022-09-13 11:02] LABS: Potassium Urine Random 93.2 meq/L; Sodium Urine Random 184 meq/L
[2022-09-13 11:03] LABS: Total Protein Urine Random < 5 mg/dL; Ur Ttl Prot Creatinine Ratio 0.02 mg/mg (0-0.20)
[2022-09-13 11:09] LABS: Free T4 Free Thyroxine 1.32 ng/mL (0.78-2.19); Vitamin D 25 Hydroxy 43.5 ng/mL
[2022-09-13 11:13] LABS: Thyroid Stimulating Hormone 0.451 uIU/mL (0.465-4.680)
[2022-09-13 11:16] LABS: Add Urine Microscopic? NO
[2022-09-13 11:49] LABS: Folic Acid 15.6 ng/mL (2.76->20)
[2022-09-16 13:38] LABS: Insulin Level Total 14.6 uIU/mL (<=19.6)
[2022-09-19 05:25] LABS: Triiodothyronine T3 Free 3.2 pg/mL (2.3-4.2)
== END 2022-09-13 09:36 | disposition home or self-care (01) ==
PROVIDERS: PCP Family Medicine; Visit Provider Internal Medicine Endocrinology, Diabetes & Metabolism
DX: E03.9 Hypothyroidism, unspecified (principal); R73.01 Impaired fasting glucose; N18.30 Chronic kidney disease, stage 3 unspecified; I12.9 Hypertensive chronic kidney disease with stage 1 through stage 4 chronic kidney disease, or unspecified chronic kidney disease; E87.20 Acidosis, unspecified; D64.9 Anemia, unspecified; R60.9 Edema, unspecified; E55.9 Vitamin D deficiency, unspecified; N39.0 Urinary tract infection, site not specified; R35.0 Frequency of micturition; E21.3 Hyperparathyroidism, unspecified; R94.6 Abnormal results of thyroid function studies
CPT/HCPCS: 36415; 80053; 80061; 81003; 82043; 82306; 82570; 82607; 82746; 83036; 83525; 83935; 83970; 84133; 84156; 84300; 84439; 84443; 84481; 84550

== ENCOUNTER 2023-07-24 14:18 | Outpatient (CLI) | payer MEDICARE, MEDICAID, SELFPAY ==
--- NOTE | ~2023-07-24 | XR_ITS ---
XR_CERV2-3V_CR 07/24/2023 14:59 Indication: Radiculopathy Procedure: 3 views cervical spine Comparison: 04/01/2022 Findings: Straightening of cervical lordosis. There is degenerative retrolisthesis at C5-6. There is disc narrowing at C5-6 with endplate hypertrophy. No prevertebral soft tissue abnormality. Vertebral body heights are maintained. There is mild multilevel facet and uncinate hypertrophy. Odontoid proces s is normal. Lateral masses normally aligned. Impression: 1: Moderate cervical spondylosis. Reviewed, dictated and finalized at location L. ESSION WORKER Impression: 1: Moderate cervical spondylosis.
--- NOTE | ~2023-07-24 | XR_ITS ---
EXAMINATION: XR lumbar spine 2-3V DATE: 07/24/2023 14:59 INDICATION: Lumbar radiculopathy. TECHNIQUE: 3 views of lumbar spine were obtained. COMPARISON: Lumbar spine radiographs 04/01/2022 FINDINGS: There is 5 degrees dextrocurvature of thoracolumbar spine. There is 3 mm retrolisthesis of L2 on L3 and L4 on L5. Vertebral body heights are normal. There is mildly decreased disc height at L2 -L3 and L4-L5 and severely decreased disc height at L5-S1. There is multilevel severe facet joint ost eoarthritis. IMPRESSION: 1. Severe lumbar spondylosis. Reviewed, dictated and finalized at location E. E PROFESSOR
== END 2023-07-24 14:19 | disposition home or self-care (01) ==
PROVIDERS: PCP Family Medicine; Visit Provider Pain Medicine Interventional Pain Medicine
DX: M47.22 Other spondylosis with radiculopathy, cervical region (principal); M47.816 Spondylosis without myelopathy or radiculopathy, lumbar region
CPT/HCPCS: 72040; 72100

== ENCOUNTER 2024-10-08 11:20 | Emergency (ER) | payer MEDICARE, SELFPAY ==
[2024-10-08] VITALS (19 sets, daily range): BP systolic 102–151; BP diastolic 58–123; PULSE 88–149; RESP 6–43; TEMP 36.8; O2SAT 96–100
--- NOTE | ~2024-10-08 | CT_ITS ---
EXAMINATION: CT abdomen pelvis w con DATE: 10/08/2024 12:58 INDICATION: Abdominal distention right-sided abdominal pain. TECHNIQUE: Computed tomography (CT) of the abdomen and pelvis was performed with 100 mL Omnipaque-350 intravenous contrast. Automated exposure control and iterative reconstruction technique were employe d. The dose-length product was 1060.97 mGy-cm. COMPARISON: None FINDINGS: Mild groundglass and fine reticulonodular opacities in the dependent right lower lobe which could rep resent atelectasis, pneumonia or mild pulmonary edema. Heart size is normal. No pericardial or pleura l effusion. Focal hepatic steatosis at the ligamentum teres. 5 mm low-attenuation likely cyst at the anterior left hepatic lobe. Small calcification in the right hepatic lobe and larger calcification is at the caudate lobe consistent with sequela of old granulomatous disease. Spleen, pancreas, bilatera l adrenal glands and kidneys are normal. There is mild scattered colonic diverticulosis. There is sma ll thickening and inflammatory stranding in the sigmoid colon with some surrounding inflammatory stra nding which could be due to diverticulitis or focal colitis. Small bowel and appendix are normal. Fidencio dder, anteverted uterus and bilateral adnexa are unremarkable. Trace amount of either reactive or phy siologic free fluid in the cul-de-sac. No abscess or free intraperitoneal gas. No pathologically enla rged abdominal or pelvic lymphadenopathy. Severe lumbosacral spondylosis with mild spondylosis and mo re cephalad lumbar and lower thoracic spine. Moderate bilateral sacroiliac osteoarthritis. IMPRESSION: 1. Wall thickening and surrounding inflammatory stranding at the sigmoid colon most likely related to diverticulitis versus less likely a focal colitis. Reviewed, dictated and finalized at location B.
--- NOTE | ~2024-10-08 | XR_ITS ---
EXAMINATION: XR chest 1V portable DATE: 10/08/2024 12:31 INDICATION: Shortness of breath TECHNIQUE: frontal view of the chest was obtained. COMPARISON: Chest radiograph dated 05/30/2021 FINDINGS: The lungs remain clear with no focal airspace opacities, pulmonary edema, pleural effusion or pneumot horax. The cardiomediastinal silhouette is normal. Visualized bones and soft tissues are unremarkable . IMPRESSION: 1. No acute cardiopulmonary disease. Reviewed, dictated and finalized at location B.
--- NOTE | 2024-10-08 11:25 | ECG_ITS ---
Test Date: 2024-10-08 11:37:35 Measurements Intervals [place] Rate: 104 P: 61 ME: 128 QRS: 9 QRSD: 78 T: 84 QT: 315 QTc: 415 Interpretive Statements SINUS TACHYCARDIA BORDERLINE ST-T WAVE ABNORMALITY- HIGH LATERAL LEADS BASELINE ARTIFACT- I, II, III, AVR, AVL, AVF, V4-V6 BORDERLINE ECG No previous ECG available for comparison Electronically Signed On 10-08-2024 12:05:06 CDT by Edmundo Juen D.O.
--- OUTSIDE RECORDS SUMMARY | 2024-10-08 11:45 | XMS_ITS | Clinical Summary ---
Author Organization [facility] System Address [address] [place] [id number] Care Team Providers Care Packing Machine Pilot Can Router Name Role Phone Unavailable Primary Care Provider Unavailabl e Social History Tobacco Use Types Packs/Day Years Used Date Smoking Tobacco: Never Assessed Comments Unknown Sex and Gender Information Value Date Recorded Sex Assigned at Not on file Legal Sex Female 4:28 PM CDT Gender Identity Not on file Sexual Orientation Not on file Plan of Treatment Health Maintenance Due Date Last Done Comments Cervical Cancer Screening Pa p Smear (Age 30 to 64) Every 3 Years 1968 Colorectal Cancer Screening Colonoscopy (10 Years) 1968 Annual Physical 12/20/1971 Hepatitis C 1986 DTaP, Tdap and Td Vaccines ( 1 - Tdap) 12/20/1987 Hepatitis B Vaccines (1 of 3 - 19+ 3-dose series) 12/20/1987 Cervical Cancer Screening Pa p with HPV Testing (Age 30 to 64) Every 5 Years 1998 Cervical Cancer Screening with HPV 1998 Mammogram Screening 2008 Zoster Vaccines (1 of 2) 2018 COVID-19 Vaccine ( - 2023-2 5 season) 2024 Meningococcal B Vaccine Aged Out No l onger eligible based on patient's age to complete this topic Meningococcal Vaccine Aged Out No sj tara eligible based on patient's age to complete this topic Pneumococcal Vaccine: Pediat rics (0 to 5 Years) and At-Risk Patients (6 to 64 Years) Aged Out No longer eligible b ased on patient's age to complete this topic RSV Immunizations Under 20 Months Aged Out No longer eligible based on patient's age to complete this topic
--- OUTSIDE RECORDS SUMMARY | 2024-10-08 11:45 | XMS_ITS | Patient Health Record ---
Author Organization [facility] Address [address] [place] [address] Care Team Providers Care Grain Operator Name Role Phone Joaquin Joshi Unavailable [phone] REASON FOR REFERRAL No Information MEDICATIONS Medication SIG (Take, Route, Frequency, Duration) Notes Start Date End Date Status Vitamin D (Ergocalciferol) 1.25 MG (57961 UT) Take 1 capsule by mouth once a week for 210 Active Losartan Potassium 50 MG 1 tablet Orally Once a day for 90 days 09/18/2022 Active Calcitriol 0.25 MCG TAKE 1 CAPSULE BY MO UTH EVERY OTHER DAY for 180 Active Losartan Potassium 25 MG Take 1 tablet b y mouth once daily for 90 Active SOCIAL HISTORY Sex Assigned At : Social History Observation Description Sex Assigned At Female PROBLEMS Problem Type ICD Code Onset Dates Problem Status W/U Status Risk SNOMED Code Notes Problem Type 2 diabetes mellitus with hyperglycemia (E11.65) Active confirmed Hyperglycemia d ue to type 2 diabetes mellitus (744718162280768) Problem Secondary hyperparathyroid ism, not elsewhere classified (E21.1) Active confirmed Secondary hyperparathyroidism (69072530) Problem Essential (primary) hypertension (I10) Active confirmed Essential hypertension (71249654) Problem Chronic kidney disease, stage 2 (mild) (N18.2) Active confirmed Chronic kidne y disease stage 2 (449028618) Problem Renal osteodystrophy (N25.0) Active confirmed Renal osteodyst rophy (93418237) PLAN OF TREATMENT No Information
--- OUTSIDE RECORDS SUMMARY | 2024-10-08 11:45 | XMS_ITS | Clinical Summary ---
Author Organization [facility] Address [address] [facility] [place] [address] Care Team Providers Care Equipment Associate Name Role Phone Marixa Guallpa MD Primary Care Provider [phone] Source Comments [facility],non-owned Affiliates and Associated Physician Practices is amultiple site organization consisting of ambulatory clinics and hospital sitesin [place], [place] and [place]. This disclosure is being madepursuant to the Care Everywhere program and may not contain all information available regarding this patient. Last updated 18.[facility] Allergies No known active allergies Medications * Be aware that medications may not be up to date on this document. Alwaysverify current medications with the patient. Medication Sig Dispensed Refills Start Date End Date Status risperiDONE (RISPERDAL) 2 MG tablet 1 mg 2 times daily 1 05/13/2018 Active clonazePAM (KLONOPIN) 1 MG tablet Take 1 mg by mouth 3 times daily 0 05/13/2018 Active venlafaxine XR 24hr (EFFEXOR XR) 150 MG capsule Take 150 mg by mouth once daily 0 04/15/2018 Active cyclobenzaprine (FLEXERIL) 10 MG tablet Take 10 mg by mouth once daily 2 07/13/2018 Active valACYclovir (VALTREX) 1 GM tablet Take 1,000 mg by mouth every 8 hours 0 06/27/2018 Active gabapentin (NEURONTIN) 300 MG capsule Take 2 capsules by mouth 3 times daily 180 capsule 5 08/31/2018 Active busPIRone (BUSPAR) 15 MG tablet Take 15 mg by mouth 3 times daily 2 11/17/2018 Active traZODone (DESYREL) 50 MG tablet Take 50 mg by mouth at bedtime 2 11/18/2018 Active atorvastatin (LIPITOR) 20 MG tablet Take 20 mg by mouth at bedtime Active Cholecalciferol 50 MCG (2000 UT) Take 2 capsules by mouth once daily Active levothyroxine (EUTHYROX) 50 MCG tablet Take 50 mcg by mouth daily before breakfast Active metFORMIN ER 24hr (GLUCOPHAGE XR) 500 MG tablet Take 500 mg by mouth daily with dinner Active prazosin (MINIPRESS) 1 MG capsule Take 1 mg by mouth at bedtime Active pregabalin (LYRICA) 75 MG capsule Take 75 mg by mouth once daily Active QUEtiapine (SEROQUEL) 25 MG tablet Take 12.5 mg by mouth 2 times daily Active folic acid 400 MCG tablet Take 400 mcg by mouth once daily Active DULoxetine (CYMBALTA) 30 MG capsule Take 30 mg by mouth at bedtime Active cyanocobalamin (VITAMIN B-12) injection Inject 1,000 mcg subcutaneously every 7 days Active divalproex ER 24hr (DEPAKOTE ER) 500 MG tablet Take 500 mg by mouth once daily 03/07/2021 Active cetirizine (ZYRTEC) 10 MG tablet Take 10 mg by mouth once daily Active Active Problems Problem Noted Date Diagnosed Date Disorder of bursae of shoulder region 03/16/2021 Recurrent dislocation of shoulder region 021 Lumbosacral radiculopathy 06/10/2018 Orbital cellulitis on left 04/11/2017 Pain in both feet Resolved Problems Problem Noted Date Diagnosed Date Resolved Date Spinal stenosis of lumbar re gion without neurogenic claudication 08/31/2018 02/12/2019 Immunizations Name Administration Dates Next Due FLU VACCINE TRI IIV3 SPLIT PF IM (FLUVIRIN) 03/30 Social History Tobacco Use Types Packs/Day Years Used Date Smoking Tobacco: Every Day Cigarettes Smokeless Tobacco: Never Tobacco Cessation:Ready to Q uit: Yes; Counseling Given: Yes Alcohol Use Standard Drinks/Week Comments No 0 (1 standard drink = 0.6 oz pur e alcohol) Sex and Gender Information Value Date Recorded Sex Assigned at Not on file Gender Identity Not on file Sexual Orientation Not on file Last Filed Vital Signs Vital Sign Reading Time Taken Comments Blood Pressure 116/74 03/16/2021 9:47 AM CDT Pulse 106 03/16/2021 9:47 AM CDT Temperature 36.7 C (98.1 F) 02/27/2021 8:45 AM CDT Respiratory Rate 16 03/16/2021 9:47 AM CDT Oxygen Saturation 98% 03/16/2021 9:47 AM CDT Inhaled Oxygen Concentration - - Weight 105.2 kg (232 lb) 02/27/2021 8:45 AM CDT Height 170.2 cm (5' 7 ) 02/27/2021 8:45 AM CDT Body Mass Index 36.34 02/27/2021 8:45 AM CDT Plan of Treatment Health Maintenance Due Date Last Done Comments COLOGUARD (AGES 45-75) - COL ON CA SCREENING 1968 COLON MONITORING 1968 COLONOSCOPY - COLON CA SCREENING 1968 CT COLONOGRAPHY - COLON CA SCREENING 1968 Colorectal Cancer Screening 1968 FIT - COLON CA SCREENING 1968 FLEX SIG - COLON CA SCREENING 1968 MAMMOGRAM 1968 MEDICARE AWV 12 MONTHS 1968 PAP SMEAR 1968 HIV SCREENING 12/20/1983 HEPATITIS C SCREENING 12/15/1986 DTAP/TDAP/TD VACCINES (1 - Tdap) 12/20/1987 HEPATITIS B VACCINE (1 of 3 - 19+ 3-dose series) 12/20/1987 PNEUMOCOCCAL VACCINE 50+ (1 of 2 - PCV) 12/20/1987 PNEUMOCOCCAL VACCINE (1 of 2 - PCV) 12/20/1987 ZOSTER VACCINE (1 of 2) 2018 SCREENING FOR DIABETES 06/10/2021 8, 04/11/2017 COVID-19 VACCINE (1 - 2023-2 5 season) 2024 DEPRESSION SCREENING 06/30/2024 INFLUENZA VACCINE (Season Ended) 2025 04/12/2017 HIB VACCINE Aged Out No longer eligi ble based on patient's age to complete this topic HPV VACCINE Aged Out No longer eligi ble based on patient's age to complete this topic MENINGOCOCCAL (Group B) VACCINE SHARED DECISION-MAKING Aged Out No longer eligible based on patient's age to complete this topic MENINGOCOCCAL GROUPS A/C/Y/W VACCINE Aged Out No longer eligible b ased on patient's age to complete this topic Procedures Procedure Name Priority Date/Time Associated Diagnosis Comments HEMOGLOBIN A1C Routine 06/10/2018 11:59 AM SAP DIRECTOR Neuropathy from Last 3 Months or Most Recently Relevant to Health Maintenance Results * HEMOGLOBIN A1C (06/10/2018 11:59 AM SAP DIRECTOR) Hemoglobin A1c 5.4 4.4 - 6.3 % 06/10/2018 2:21 PM [facility] Estimated Average Glucose 108 mg/dL 06/10/2018 2:21 PM [facility] Comment: HbA1c Interpretation: Treatment target values recommended by ADA and other clinical organizations should be used to evaluate metabolic control in patients. Treatment Target Values: Normal : < 5.7% Pre-diabetes: 5.7-6.4% Diabetes: Equal to or greater than 6.5% Reference: [place] [employer] Standards of Care in Diabetes -2014 In patients 70 years and older consider HbA1c target range of 7.0-7.5% Reference: Diabetes Mellitus in Older People: Position Statement on behalf of the International Association of Gerontology and Geriatrics (IAGG), the Diabetes Working Constitution Party for Older People (EDWPOP), and the International Task Force of Experts in Diabetes. Gerald Black, et al. J [place] [employer]. 2012 Test results diagnostic of diabetes should be repeated for confirmation. The Tosoh G8 assay for the measurement of HbA1c is a National Glycohemoglobin Standardization Program (NGSP)certified method. Results for patients with HbE disease should be interpreted with caution as this hemoglobinopathy has been shown to interfere with the Tosoh G8 assay. Blood BLOOD SPECIMEN / Unknown Lab Venipuncture / Unknown 06/10/2018 11:59 AM SAP DIRECTOR 06/10/2018 12:10 PM SAP DIRECTOR Jim Hargrove MD LAB - CHEMISTRY DEANGELO Perez Organization Address City/State/ZIP Co de Phone Number [address] [phone] from Last 3 Months or Most Recently Relevant to Health Maintenance Care Teams Equipment Associate Relationship Specialty Start Date End Date Marixa Guallpa MD [address] [place] [phone] PCP - General 02/17/18
[2024-10-08 11:57] LABS: Basophils Absolute Auto 0.1 K/mm3 (0.0-0.1); Basophils Percent Auto 0.6 % (0.2-1.2); Eosinophils Absolute Auto 0.1 K/mm3 (0-0.3); Eosinophils Percent Auto 0.8 % (0-4.4); Hematocrit 46.5 % (37.0-47.0); Hemoglobin 14.9 g/dL (12.0-15.0); Immature Granulocyte Absolute 0.05 K/mm3 (0.00-0.031); Immature Granulocyte Percent A 0.4 % (0-0.5); Lymphocytes Percent Auto 25.9 % (18.3-44.2); Mean Corpuscular Hemoglobin 29.1 pg (26-34); Mean Corpuscular Volume 90.8 fl (80-100); Mean Platelet Volume 10.3 fl (7.4-10.4); Monocytes Absolute Auto 0.7 K/mm3 (0.1-0.6); Monocytes Percent Auto 5.7 % (2.6-8.5); Neutrophils Absolute Auto 8.2 K/mm3 (1.3-6.7); Neutrophils Percent Auto 66.6 % (45.5-73.1); Platelet Count Result 322 k/mm3 (150-375); Red Blood Count 5.12 M/mm3 (4.2-5.4); Red Cell Distribution Width 13.6 % (11.5-14.5); White Blood Count 12.3 K/mm3 (4.5-10.0)
--- NOTE | 2024-10-08 12:00 | PC.NURSE ---
pt spilled most of her urine sample, let her know that we would probably need another urine sample when she is able to urinate again
--- NOTE | 2024-10-08 12:04 | ED_ITS ---
HPI - Abdominal Pain General Chief Complaint: Abdominal Pain Stated Complaint: Abdominal pain-swelling Time Seen by Provider: 10/08/24 12:02 Source: patient Mode of arrival: ambulatory Limitations: no limitations History of Present Illness HPI narrative: Patient presents with abdominal pain, particularly right-sided abdominal pain and swelling which she states has been going on for the past 4 months. Is starting to cause shortness of breath because of distended she feels. She states eating of ulcer rates the pain so she has had decreased appetite and intake. She has nausea but no vomiting. She felt chilled yesterday. She denies any back or flank pain. She denies any dysuria or hematuria. She has had 3 or 4 colonoscopies in her life last 1 being approximately 2 years ago. History of ovarian cysts and IBS. She thought it might be a kidney stone that it is been lasting for a long time. No history of kidney stones. She has trialed Pepto-Bismol and tried giving herself an enema with no relief. Last bowel movement was approximately 1 week ago. She notes that she is frequently constipated. She initially denies any bloody stools but then states that she has notice that while she does they are dark and tarry. She denies any vaginal bleeding or discharge. She states that in May when this started after corrects that she gained 10 lb but that she lost this weight in the last few days. Only abdominal surgery for prior . States she has history of stage II kidney failure but has not been taking medication for awhile. She does smoke half pack per day but denies alcohol. Related Data Home Medications ?Medication ?Instructions ?Recorded ?Confirmed ?Last Taken ?Type buspirone 10 mg tablet 10 mg PO DAILY 05/06/20 12/02/22 Unknown History cariprazine 6 mg capsule (Vraylar) 6 mg PO DAILY 05/06/20 12/02/22 Unknown History atorvastatin 20 mg tablet 20 mg PO QHS 12/29/20 12/02/22 Unknown History calcium carbonate (Calcium 600) 600 mg PO DAILY 12/29/20 12/02/22 Unknown History cholecalciferol (vitamin D3) 50 50 mcg PO DAILY 12/29/20 12/02/22 Unknown History mcg (2,000 unit) capsule divalproex 500 mg tablet,extended 500 mg PO DAILY 12/29/20 12/02/22 Unknown History release 24 hr folic acid 400 mcg tablet 0.4 mg PO DAILY 12/29/20 12/02/22 Unknown History levothyroxine 50 mcg tablet 50 mcg PO DAILY 12/29/20 12/02/22 Unknown History (Euthyrox) metformin 500 mg tablet 500 mg PO BID 12/29/20 12/02/22 Unknown History venlafaxine 37.5 mg 37.5 mg PO DAILY 12/29/20 12/02/22 Unknown History capsule,extended release 24 hr fluticasone furoate 100 1 inh inhalation DAILY 09/17/21 12/02/22 Unknown History mcg-vilanterol 25 mcg/dose inhalation powder (Breo Ellipta) mecobalamin (vitamin B12) 10,000 10,000 mcg subcut .qm 09/17/21 12/02/22 Unknown History mcg solution for injection Allergies Allergy/AdvReac Type Severity Reaction Status Date / Time No Known Allergies Allergy Verified 10/08/24 11:20 [facility] Past Medical History Medical History (Updated 10/09/24 @ 00:01 by Kishan Tolliver) History of ovarian cyst History of IBS Stage 2 chronic kidney disease Asthma Diabetes Hypothyroidism DDD (degenerative disc disease) Upper respiratory infection Bipolar affect, depressed HTN (hypertension) Bipolar disorder Surgical History Surgical History History of section Family History Family History Father Alcohol abuse Hypertension Cerebrovascular accident Acute myocardial infarction Mother Alcohol abuse Asthma Son Non-Hodgkins lymphoma Grandparent Lung cancer non-smoker Grandparent Stomach cancer Other No active medical problems Social History Social History Smoking packs per day: 0.5 Smoking cigarettes per day: 10.0 Years smoked: 38 Smoking pack-years: 19.00 Smoking status: Current some day smoker Tobacco type: cigarettes Second hand tobacco smoke exposure: Yes Alcohol intake: never Substance use: current Substance use type: marijuana Other substance usage details: daily Lack of Transportation: No Lack of Food: Never True Current Housing: I Have Housing Concerned About Future Housing: No Difficulty Paying Gas/Electric Bills: No Difficulty Paying for Meds: No Currently Unemployed: Decline to Answer Education: High School Diploma/GED Living arrangements: with family Occupation/Education: unemployed Gender identity (if verbalized by the patient): Female Spiritual care concerns: No Agree to blood products: Yes Exam 2 Narrative: GENERAL: well-nourished,in moderate acute distress. HEAD: Normocephalic, atraumatic. EYES: Non injected, non icteric ENT: Nares clear, no rhinorrhea or epistaxis. NECK: Supple. CHEST: Speaking in full sentences. No respiratory distress. HEART: Tachycardic rate and rhythm. . ABDOMEN: Soft, distended. Three areas of approximately 2cm each ecchymosis along right abdomen. Generalized TTP. EXTREMITIES: Normal range of motion. No lower extremity edema. SKIN: Warm, dry, no rash. NEURO: No focal deficits. Alert and oriented x3. PSYCH: Congruent mood and affect. Course Vital Signs Vital signs: Vital Signs Temperature 98.3 F 10/08/24 11:27 Pulse Rate 149 H 10/08/24 11:27 Respiratory Rate 18 10/08/24 11:27 Blood Pressure 132/90 10/08/24 11:27 Pulse Oximetry 99 10/08/24 11:27 Temperature 98.3 F 10/08/24 11:27 Pulse Rate 88 10/08/24 14:45 Respiratory Rate 9 L 10/08/24 14:45 Blood Pressure 107/64 10/08/24 12:45 Pulse Oximetry 98 10/08/24 14:45 MDM - Abdominal Pain MDM Narrative Medical decision making narrative: Patient presents with generalized abdominal pain although more right-sided. In the emergency department she is afebrile vital signs notable initially for significant tachycardia 149 beats per minute, 106 on repeat without interval intervention. 1 L normal saline ordered for tachycardia. Mild leukocytosis. 2 L saline is ordered given patient's lactic acid results as greater than 4. Mild hyperglycemia with a small anion gap and no acidosis. I suspect a degree of starvation. Diverticulitis on imaging. Does not appear to be a complication such as gross perforation or abscess rupture on imaging. Patient does not have complaints of dysuria making colovesical fistula unlikely. Not obstructed per imaging. No fecal matter or gas emanating from the vagina so low suspicion of colovaginal fistula. Outpatient PO antibiotics covering gram negative aerobic and anaerobic bacteria will be initiated in the form of cipro 500mg BID and metronidazole 500mg q 6 hr for 10 days. First dose given in the ED with the rest of the course prescribed. She is also given prescriptions for ibuprofen and acetaminophen with narcotics for breakthrough pain control given. Also Zofran for nausea. Lactic acid has normalized. Discussed with patient the diagnosis and plan. She verifies understanding. At the time of discharge she does seem to be more distended and more pain according to the nurse. When I went in to reexamine her however, she states that this had passed. I gave strict emergency department return precautions and she verifies understanding; low threshold to admit for IV antibiotics if patient returns. Lab Data Attestation: I reviewed the patient's lab results. Lab results narrative: lipase normal 10/08/24 11:49 10/08/24 11:49 Labs: Lab Results 10/08/24 10/08/24 10/08/24 Range/Units 11:47 11:49 13:11 WBC 12.3 H (4.5-10.0) K/mm3 RBC 5.12 (4.2-5.4) M/mm3 Hgb 14.9 (12.0-15.0) g/dL Hct 46.5 (37.0-47.0) % MCV 90.8 (80-100) fl MCH 29.1 (26-34) pg MCHC 32.0 (32-36) g/dl RDW 13.6 (11.5-14.5) % Plt Count 322 (150-375) k/mm3 MPV 10.3 (7.4-10.4) fl Immature Gran % (Auto) 0.4 (0-0.5) % Neut % (Auto) 66.6 (45.5-73.1) % Lymph % (Auto) 25.9 (18.3-44.2) % [place] % (Auto) 5.7 (2.6-8.5) % Eos % (Auto) 0.8 (0-4.4) % Baso % (Auto) 0.6 (0.2-1.2) % Lymph # (Auto) 3.20 (0.9-3.2) K/mm3 [place] # (Auto) 0.7 H (0.1-0.6) K/mm3 Eos # (Auto) 0.1 (0-0.3) K/mm3 Baso # (Auto) 0.1 (0.0-0.1) K/mm3 Abs Immat Gran (auto) 0.05 H (0.00-0.031) K/mm3 Absolute Neuts (auto) 8.2 H (1.3-6.7) K/mm3 Absolute Nucleated RBC 0.000 (0.0-0.012) K/mm3 Nucleated RBC % 0.0 (0.0-0.2) % PT 13.8 (11.1-14.7) Seconds INR 1.0 APTT 27.0 (22.3-36.8) Seconds Sodium 139 (137-145) mmol/L Potassium 3.8 (3.4-5.0) mmol/L Chloride 103 (98-107) mmol/L Carbon Dioxide 22 (22-30) mmol/L Anion Gap 14 H (4-12) mmol/L BUN 10 (7-17) mg/dL Creatinine 0.97 (0.7-1.0) mg/dL Estim Creat Clear Calc 70 ml/min Estimated GFR 60 (59 - ) Glucose 153 H (65-110) mg/dL Lactic Acid 4.2 H* (0.7-2.0) mmol/L Calcium 9.3 (8.4-10.2) mg/dL Magnesium 1.8 (1.6-2.3) mg/dL Total Bilirubin 0.8 (0.2-1.3) mg/dL AST 21 (14-36) U/L ALT 27 (6-35) U/L Alkaline Phosphatase 93 (38-126) U/L Total Protein 8.0 (6.3-8.2) g/dL Albumin 4.6 (3.5-5.1) g/dL Lipase 69 (23-300) U/L Urine Color Yellow (Yellow) Urine Appearance Clear (Clear) Urine pH 7.5 (5.0-9.0) Ur Specific [place] > 1.045 H (1.001-1.035) Urine Protein Negative (Negative) mg/dL Urine Glucose (UA) Negative (Negative) mg/dL Urine Ketones Negative (Negative) mg/dL Ur Blood (Man) Negative (Negative) Urine Nitrate Negative (Negative) Urine Bilirubin Negative (Negative) Urine Urobilinogen 1.0 (<2.0) mg/dL Leukocyte Esterase Rfl Negative (Negative) ANITA/UL 10/08/24 Range/Units 14:27 WBC (4.5-10.0) K/mm3 RBC (4.2-5.4) M/mm3 Hgb (12.0-15.0) g/dL Hct (37.0-47.0) % MCV (80-100) fl MCH (26-34) pg MCHC (32-36) g/dl RDW (11.5-14.5) % Plt Count (150-375) k/mm3 MPV (7.4-10.4) fl Immature Gran % (Auto) (0-0.5) % Neut % (Auto) (45.5-73.1) % Lymph % (Auto) (18.3-44.2) % [place] % (Auto) (2.6-8.5) % Eos % (Auto) (0-4.4) % Baso % (Auto) (0.2-1.2) % Lymph # (Auto) (0.9-3.2) K/mm3 [place] # (Auto) (0.1-0.6) K/mm3 Eos # (Auto) (0-0.3) K/mm3 Baso # (Auto) (0.0-0.1) K/mm3 Abs Immat Gran (auto) (0.00-0.031) K/mm3 Absolute Neuts (auto) (1.3-6.7) K/mm3 Absolute Nucleated RBC (0.0-0.012) K/mm3 Nucleated RBC % (0.0-0.2) % PT (11.1-14.7) Seconds INR APTT (22.3-36.8) Seconds Sodium (137-145) mmol/L Potassium (3.4-5.0) mmol/L Chloride (98-107) mmol/L Carbon Dioxide (22-30) mmol/L Anion Gap (4-12) mmol/L BUN (7-17) mg/dL Creatinine (0.7-1.0) mg/dL Estim Creat Clear Calc ml/min Estimated GFR (59 - ) Glucose (65-110) mg/dL Lactic Acid 0.8 (0.7-2.0) mmol/L Calcium (8.4-10.2) mg/dL Magnesium (1.6-2.3) mg/dL Total Bilirubin (0.2-1.3) mg/dL AST (14-36) U/L ALT (6-35) U/L Alkaline Phosphatase (38-126) U/L Total Protein (6.3-8.2) g/dL Albumin (3.5-5.1) g/dL Lipase (23-300) U/L Urine Color (Yellow) Urine Appearance (Clear) Urine pH (5.0-9.0) Ur Specific [place] (1.001-1.035) Urine Protein (Negative) mg/dL Urine Glucose (UA) (Negative) mg/dL Urine Ketones (Negative) mg/dL Ur Blood (Man) (Negative) Urine Nitrate (Negative) Urine Bilirubin (Negative) Urine Urobilinogen (<2.0) mg/dL Leukocyte Esterase Rfl (Negative) ANITA/UL Imaging Data Radiologist's impression: ITS Impressions Chest X-Ray 10/08/24 12:38 IMPRESSION: 1. No acute cardiopulmonary disease. Abdomen/Pelvis CT 10/08/24 12:59 IMPRESSION: 1. Wall thickening and surrounding inflammatory stranding at the sigmoid colon most likely related to diverticulitis versus less likely a focal colitis. ECG Data EKG #1: Attestation: I personally reviewed and interpreted this ECG as follows: ECG completion date: 10/08/24 ECG completion time: 11:37 Interpretation: Sinus tachycardia at a rate of 104 beats per minute. MT interval 128. QRS 78. QT/QTC 315/375. Good R-wave progression across the precordial leads. No T-wave inversions. Discharge Plan Discharge Clinical Impression: Leukocytosis, Diverticulitis large intestine Patient Disposition: Home Condition: Stable Instructions: Antibiotic Form, Diverticulitis (DC), Narcotic Safety (ED), Leukocytosis (ED), Diverticulitis Diet (ED) Additional Instructions: Take the combination of antibiotics prescribed. While you are on the Flagyl, do not drink any alcohol as this can make you more sick. Acetaminophen/Tylenol (maximum 4000 mg per day) is safe to take with NSAIDs (ibuprofen/Motrin) for pain relief. The oral disintegrating tablets of Zofran can help with nausea vomiting. For breakthrough pain, short course of opiate/narcotic medications has been prescribed. Follow-up with primary care physician. Return to the emergency department new, worsening, unmanaged symptoms such as fever greater than 100.4? F, intractable nausea vomiting, intractable pain. Patient Language: Jamaican Prescriptions: New ibuprofen 600 mg tablet 600 mg PO TID PRN (Reason: pain) Qty: 30 0RF ondansetron 4 mg tablet,disintegrating 4 mg PO Q8H PRN (Reason: nausea and vomiting) Qty: 7 0RF acetaminophen 500 mg capsule 1,000 mg PO Q6H PRN (Reason: pain) Qty: 30 0RF ciprofloxacin HCl [Cipro] 500 mg tablet 500 mg PO Q12H 10 Days Qty: 19 0RF Rx Instructions: Received 1st dose in the emergency department 10/08/2024 metronidazole 500 mg tablet 500 mg PO Q6H 10 Days Qty: 39 0RF Rx Instructions: received first dose in ED 10/08 oxycodone 5 mg capsule 5 mg PO Q8H PRN (Reason: pain) Qty: 7 0RF No Action buspirone 10 mg tablet 10 mg PO DAILY Vraylar 6 mg capsule 6 mg PO DAILY mecobalamin (vitamin B12) 10,000 mcg recon soln 10,000 mcg subcut .qm Breo Ellipta 100-25 mcg/dose blister with device 1 inh inhalation DAILY ondansetron 8 mg tablet,disintegrating 8 mg PO Q8H PRN (Reason: nausea and vomiting) Qty: 14 0RF divalproex 500 mg tablet extended release 24 hr 500 mg PO DAILY levothyroxine [Euthyrox] 50 mcg tablet 50 mcg PO DAILY calcium carbonate [Calcium 600] 600 mg calcium (1,500 mg) tablet 600 mg PO DAILY cholecalciferol (vitamin D3) 50 mcg (2,000 unit) capsule 50 mcg PO DAILY folic acid 400 mcg tablet 0.4 mg PO DAILY atorvastatin 20 mg tablet 20 mg PO QHS venlafaxine 37.5 mg capsule,extended release 24hr 37.5 mg PO DAILY metformin 500 mg tablet 500 mg PO BID Paxlovid 300 mg (150 mg x 2)-100 mg tablets,dose pack See Rx Instructions PO .COMPLEX Qty: 30 0RF Rx Instructions: take TWO 150 mg tablets of nirmatrelvir with ONE 100 mg tablet of ritonavir twice daily for 5 days PO lorazepam 0.5 mg tablet 0.5 mg PO BID PRN (Reason: anxiety) Qty: 14 0RF Follow-up/Referrals: Jamia Valencia MD [Primary Care Provider] - Stand Alone Forms: Work/School Release IP Time of Disposition: 14:58
[2024-10-08] MEDS: SODIUM CHLORIDE 0.9% IV 1,000 ML 999 ML IV CONT ×3 (12:08→13:37)
--- OUTSIDE RECORDS SUMMARY | 2024-10-08 12:09 | XMS_ITS | Data Portability ---
Author Organization [place] [facility] [employer], Main Office Address [address] [place] [address] Care Team Providers Care Registered Dental Hygienist Name Role Phone MAXIMILIANO OBRIEN Primary Care Provider Assessment No assessment recorded. Plan of Treatment Reminders Order Date Submit Date Provider Last Modified By Organization Details Last Modified Time Details Appointments None recorded. Lab rf (rheumatoid factor), serum 2022 023 [place] [facility], [address], [place], [address], 3 15:22:49 JAZZ (antinuclea r antibodies) screen, serum 2022 023 [place] [facility], 2022 Fat[address] Walker, [address], [place], [address], 3 15:22:48 ESR (erythrocyt e sedimentati on rate), blood 2022 023 [place] [facility], 2022 Fat[address] Walker, [address], [place], [address], 3 15:22:48 C reactive protein, QN, serum or plasma 2022 023 [place] [facility], 2022 Fat[address] Walker, [address], [place], [address], 3 15:22:48 ccp (cyclic citrullinat ed peptide) iga+igg, serum 2022 023 [place] [facility], 2022 Fatuma Walker, [address], [place], [address], 3 15:22:50 HbA1c (hemoglobin A1c), blood 2022 023 [facility], 2022 Fatuma Walker, [address], [place], [address], 3 15:22:50 insulin, serum 2022 023 [facility], 2022 Fatuma Walker, [address], [place], [address], 3 15:22:49 lipid panel, serum 2022 023 [facility], 2022 Fatuma Walker, [address], [place], [address], 3 03:31:18 TSH + free T4, serum 2022 023 [facility], 2022 Fat[address] Walker, [address], [place], [address], 3 03:31:18 T3, free, serum or plasma 2022 023 [facility], 2022 Fat[address] Walker[address], [place], [address], 3 15:22:49 CMP, serum or plasma 2022 023 [facility], 2022 Fat[address] Walker[address], [place], [address], 3 15:22:50 Referral None recorded. Procedures None recorded. Surgeries None recorded. Imaging None recorded. Medication Orders ergocalcife rol (vitamin D2) 1,250 mcg (50,000 unit) capsule 2022 023 [facility] [address], [place], [address], 3 15:25:56 metformin ER 500 mg 24 hr tablet,exte nded release (gastric retention) 2022 023 [email or web address] [facility] [address] , [place], [address], 4 09:37:40 levothyroxi ne 50 mcg tablet 2022 023 [place] [facility] [address] , [place], [address], 3 15:25:55 Patient TargetsNo targets recorded. Patient InstructionsNo instructions recorded. Reason for Referral None Reported. Results Created Date Observation Date Name Description Value Unit Range Abnormal Flag Note LastModifiedBy Organization Detail LastModifiedTime 01/02/20 22 01/08/2022 INSUL IN insulin commen t SENT TO REFER ENCE LAB; SEE SEPAR ATE REPOR T Not Available [facility] (Lab) [address] [place], [address], 01/08/2022 14:22:13 01/02/20 22 01/01/2022 VITAM IN B12 (KASSIDY LAUREEN ) vb12 440 pg/mL 239-93 1 Not Available [facility] (Lab) [address] [place], [address], 01/01/2022 21:41:28 01/02/20 22 01/01/2022 FOLAT E, SERUM /PLAS MA folate 5.91 NG/mL 2.76-2 0.0 Not Available [facility] (Lab) [address] [place], [address], 01/01/2022 21:41:23 01/02/20 22 01/01/2022 TSH thyroid-stim ulating hormone 0.811 uIU/m L 0.465- 4.680 Not Available [facility] (Lab) [address] [place], [address], 01/01/2022 21:04:24 01/02/20 22 01/01/2022 T3 FREE free T3 3.6 pg/mL 2.77-5 .27 Not Available [facility] (Lab) [address] [place], [address], 01/01/2022 20:47:17 01/02/20 22 01/01/2022 T4 FREE free T4 1.22 NG/dL 0.78-2 .19 Not Available [facility] (Lab) [address] [place], [address], 01/01/2022 20:47:06 01/02/20 22 01/01/2022 LIPID PANEL LDL cholesterol, calculated 190 mg/dL 0-130 high NIH JOYCE NSUS REPOR T RECOM MENDA TIONS FOR LDL: ADULT CHILD LOW RISK <130 <110 (OPTI MAL LDL) <100 ----- BORDE RLINE : 130-1 59 ----- HIGH RISK: >160 >130 A TRIGL YCERI DE RESUL T >400 INVAL IDATE S THE CALCU LATIO N FOR LDL FRACT IONAT ION - THE LDL RESUL T WILL NOT BE REPOR ELSA. Not Available [facility] (Lab) [address] [place], [address], 01/01/2022 20:32:18 01/02/20 22 01/01/2022 LIPID PANEL cholesterol 284 mg/dL 140-19 9 high NIH JOYCE NSUS RECOM MENDA TION FOR DEXTER STERO L: ADULT CHILD LOW RISK: <200 <170 BORDE RLINE : <200- 239 ----- HIGH RISK: >240 >200 Not Available [facility] (Lab) [address] [place], [address], 01/01/2022 20:32:18 01/02/20 22 01/01/2022 LIPID PANEL triglyceride s 215 mg/dL 0-150 high NIH JOYCE NSUS REPOR T RECOM MENDA TION FOR TRIGL YCERI JEVON: ADULT CHILD LOW RISK: <150 ----- BODER LINE: 150-1 99 ----- HIGH RISK: >200 ----- Not Available [facility] (Lab) [address] [place], [address], 01/01/2022 20:32:18 01/02/20 22 01/01/2022 LIPID PANEL HDL cholesterol 51 mg/dL 40- Not Available [facility] (Lab) [address] [place], [address], 01/01/2022 20:32:18 01/02/20 22 01/01/2022 COMPR EHENS NUBIA METAB OLIC PANEL anion gap 11.4 mmol/ L 14-22 low Not Available [facility] (Lab) [address] [facility] [place], [address], 01/01/2022 20:32:08 01/02/20 22 01/01/2022 COMPR EHENS NUBIA METAB OLIC PANEL sodium 139 mmol/ L 137-14 5 Not Available [facility] (Lab) [address] [place], [address], 01/01/2022 20:32:08 01/02/20 22 01/01/2022 COMPR EHENS NUBIA METAB OLIC PANEL potassium 4.4 mmol/ L 3.5-5. 1 Not Available [facility] (Lab) [address] [place], [address], 01/01/2022 20:32:08 01/02/20 22 01/01/2022 COMPR EHENS NUBIA METAB OLIC PANEL chloride 107 mmol/ L 98-107 Not Available [facility] (Lab) [address] [place], [address], 01/01/2022 20:32:08 01/02/20 22 01/01/2022 COMPR EHENS NUBIA METAB OLIC PANEL carbon dioxide 25 mmol/ L 22-30 Not Available [facility] (Lab) [address] [place], [address], 01/01/2022 20:32:08 01/02/20 22 01/01/2022 COMPR EHENS NUBIA METAB OLIC PANEL glucose 101 mg/dL 70-99 high Not Available [facility] (Lab) [address] [place], [address], 01/01/2022 20:32:08 01/02/20 22 01/01/2022 COMPR EHENS NUBIA METAB OLIC PANEL BUN 10 mg/dL 8-19 Not Available [facility] (Lab) [address] [place], [address], 01/01/2022 20:32:08 01/02/20 22 01/01/2022 COMPR EHENS NUBIA METAB OLIC PANEL creatinine 0.85 mg/dL 0.66-1 .25 Not Available [facility] (Lab) [address] [place], [address], 01/01/2022 20:32:08 01/02/20 22 01/01/2022 COMPR EHENS NUBIA METAB OLIC PANEL GFR >60 Refer ence Range : [place] ge GFR Healt hy Adult : >60 mL/mi n/1.7 3 m2 Chron ic Kidne y Disea se: 15-60 mL/mi n/1.7 3 m2 Kidne y Failu re: <15/m L/min /1.73 m2 www.n iddk. nih.g ov The MDRD study equat ion has not been valid ated in child morris <18 years of age; pregn ant women ; the elder ly >85 years of age; or in some racia l or ethni c subgr oups, such as [facility] nics. Outsi de the valid ated blaise eters , estim ated GFR is less accur ate, requi ring clini todd judgm ent on a case- by-ca se basis . Clini todd inter preta tion for other races and ages must be made by the clini yolanda. The MDRD study equat ion has not been valid ated for the evalu ation of serum creat inine relat ed to nutri john l statu s or medic ation usage . For perso ns <18 years of age, a pedia tric GFR calcu lator is avail able on the [facility] websi te: https ://adelina mix.hanny waller/pr ofess ional s/kdo qi/gf r_cal culat or Not Available [facility] (Lab) [address] [place], [address], 01/01/2022 20:32:08 01/02/20 22 01/01/2022 COMPR EHENS NUBIA METAB OLIC PANEL alkaline phosphatase 88 U/L 38-126 Not Available [facility] (Lab) [address] [facility] [place], [address], 01/01/2022 20:32:08 01/02/20 22 01/01/2022 COMPR EHENS NUBIA METAB OLIC PANEL alanine aminotransfe rase 16 U/L 0-35 Not Available [facility] (Lab) [address] [facility] [place], [address], 01/01/2022 20:32:08 01/02/20 22 01/01/2022 COMPR EHENS NUBIA METAB OLIC PANEL aspartate aminotransfe rase 21 U/L 15-37 Not Available [facility] (Lab) [address] [place], [address], 01/01/2022 20:32:08 01/02/20 22 01/01/2022 COMPR EHENS NUBIA METAB OLIC PANEL bilirubin, total 0.50 mg/dL 0.20-1 .30 Not Available [facility] (Lab) [address] [place], [address], 01/01/2022 20:32:08 01/02/20 22 01/01/2022 COMPR EHENS NUBIA METAB OLIC PANEL calcium 9.6 mg/dL 8.4-10 .2 Not Available [facility] (Lab) [address] [place], [address], 01/01/2022 20:32:08 01/02/20 22 01/01/2022 COMPR EHENS NUBIA METAB OLIC PANEL total protein 7.5 g/dL 6.3-8. 2 Not Available [facility] (Lab) [address] [place], [address], 01/01/2022 20:32:08 01/02/20 22 01/01/2022 COMPR EHENS NUBIA METAB OLIC PANEL albumin 4.2 g/dL 3.4-5. 0 Not Available [facility] (Lab) [address] [place], [address], 01/01/2022 20:32:08 01/02/20 22 01/01/2022 COMPR EHENS NUBIA METAB OLIC PANEL globulin 3.3 g/dL 2.6-4. 2 Not Available [facility] (Lab) [address] [place], [address], 01/01/2022 20:32:08 01/02/20 22 01/01/2022 COMPR EHENS NUBIA METAB OLIC PANEL A/G ratio 1.3 ratio 1.0-2. 0 Not Available [facility] (Lab) [address] [place], [address], 01/01/2022 20:32:08 01/02/20 22 01/01/2022 HEMOG LOBIN A1C HA1C 5.4 % 4.0-6. 0 Diabe viviana Scree annie Crite michael: <5.7% Consi stent with absen ce of diabe viviana 5.7-6 .4% Consi stent with incre ased risk for diabe viviana (pred iabet es) >OR=6 .5% Consi stent with diabe viviana REFER ENCE: Diabe viviana Care 2016, 39(Guaman ppl.1 ):s13 -s22 Not Available [facility] (Lab) [address] [place], [address], 01/01/2022 19:50:07 07/02/19 22 05/30/2021 compl ete PFT w/ post [facility] hodil ator eladia metry * No observ ation record ed. [id number] [facility] [address] [place], [address], 08/28/2022 02:35:39 Result Notes None recorded. Problems Name Problem SNOMED Code Status Onset Date Resolution Date Notes Provider Name and Address Organization Details Recorded Time Recurrent dislocation of shoulder region 87349841 Active Not Available [facility] 3 14:49:03 Vitamin D deficiency 17510666 Active 2021 Not Available [facility] 3 14:49:03 Dyslipidemia 200209552 Active 2021 Not Available [facility] 3 14:49:03 Arthritis 3534274 Active 2021 Not Available [facility] 3 14:49:03 Impaired fasting glycemia 604102917 Active 2021 Not Available [facility] 3 14:49:03 Hypothyroidis m 37898607 Active 2021 Not Available [facility] 3 14:49:04 Obesity 291860641 Active 2021 Not Available [facility] 3 14:49:04 Disorder of bursa of shoulder region 93457227 Active Not Available [facility] 3 14:49:04 Vitamin B12 deficiency (non anemic) 77105227 Active 2021 Not Available [facility] 3 14:49:04 Sleep apnea 18724156 Active 2021 Not Available [facility] 3 14:49:04 Mild persistent asthma 332982698 Active 2023 Cristel Gtz MA null, [place] [facility] [email or web address] 4 08:36:08 Notes:Medical History: Nicot ine dependence Bipolar depression/Anxiety/PTSD COVID infection 01/2023 Rhinitis with postnasal drip IgE 37 IU/mL Eosinophils 100/uL Bruxism Erythrocytosis Obesity with mild complex SAHS, 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 Procedures Surgical History Date Name Laterality Status Provider Name and Address Organization Details Recorded Time 5 Carpal tunnel completed Not Available [facility] 2022 02:29:39 2 section completed Not Available [facility] 08/28/2022 02:29:39 ligation of bilateral fallopian tubes completed Not Available [facility] 08/28/2022 02:29:39 Imaging Results Imaging Date Name Status LastModified by Organization Details LastModified Time 05/30/2021 complete PFT w/ post bronchodilator spirometry* completed [id number] [facility] [address] [place], [address], 08/28/2022 02:35:39 Procedure Notes None recorded. Medical Equipment None Reported. Allergies No known drug allergies Medications Name Sig Start Date Stop Date Status Note LastModified by Organization Details LastModified Time quetiapin e 25 mg tablet TAKE 1 2 (ONE HALF) TABLET BY MOUTH TWICE DAILY active Not Available Not Available No t Available cyclobenz aprine 10 mg tablet TAKE 1 TABLET BY MOUTH EVERY DAY 05/09 completed Not Available Not Available Not Available amoxicill in 500 mg capsule TAKE 1 CAPSULE BY MOUTH EVERY 8 HOURS UNTIL FINISHED 01/24 completed Not Available Not Available Not Available atorvasta tin 40 mg tablet Take 1 tablet every day by oral route for 90 days. active Not Available Not Available No t Available lamotrigi ne 150 mg tablet TAKE 1 TABLET BY MOUTH ONCE DAILY DIRECTED FOR 30 DAYS active Not Available Not Available No t Available venlafaxi ne ER 37.5 mg capsule,e xtended release 24 hr TAKE 1 CAPSULE BY MOUTH ONCE DAILY IN THE MORNING FOR 30 DAYS 07/11 completed Not Available Not Available Not Available prednison e 10 mg tablet TAKE 5 TABLETS BY MOUTH ONCE DAILY FOR 2 DAYS THEN 4 ONCE DAILY FOR 2 DAYS THEN 3 ONCE DAILY FOR 2 DAYS THEN 2 ONCE DAILY FOR 2 DAYS THEN 1 ONCE DAILY FOR 2 DAYS 08/15 completed Not Available Not Available Not Available venlafaxi ne ER 75 mg capsule,e xtended release 24 hr TAKE 1 CAPSULE BY MOUTH ONCE DAILY DIRECTED 07/11 completed Not Available Not Available Not Available atorvasta tin 20 mg tablet TAKE 1 TABLET BY MOUTH ONCE DAILY AT BEDTIME FOR 90 DAYS 12/19 completed Not Available Not Available Not Available benztropi ne 0.5 mg tablet TAKE 1 TABLET BY MOUTH ONCE DAILY AT BEDTIME active Not Available Not Available No t Available triazolam 0.25 mg tablet TAKE ONE TABLET BY MOUTH 1 HOUR PRIOR TO DENTAL SURGERY. BRING OTHER TABLET WITH YOU TO THE DENTAL APPOINTM ENT 12/19 completed Not Available Not Available Not Available trazodone 50 mg tablet 05/09 completed Not Available Not Available Not Available cetirizin e 10 mg tablet TAKE 1 TABLET BY MOUTH ONCE DAILY active Not Available Not Available No t Available azithromy maurizio 250 mg tablet TAKE 2 TABLETS BY MOUTH ON DAY 1 AND THEN TAKE 1 TABLET BY MOUTH ONCE A DAY ON DAY 2 THROUGH DAY 5 active Not Available Not Available No t Available ibuprofen 800 mg tablet 05/09 completed Not Available Not Available Not Available tizanidin e 4 mg tablet TAKE 1 TABLET BY MOUTH THREE TIMES DAILY NEEDED active Not Available Not Available No t Available valacyclo vir 1 gram tablet TAKE 1 TABLET BY MOUTH EVERY 8 HOURS FOR 7 DAYS 08/15 completed Not Available Not Available Not Available prazosin 1 mg capsule TAKE 1 CAPSULE BY MOUTH ONCE DAILY AT BEDTIME FOR 30 DAYS 07/25 completed Not Available Not Available Not Available prednison e 20 mg tablet TAKE 2 TABLETS BY MOUTH ONCE DAILY active Not Available Not Available No t Available clonazepa m 0.5 mg tablet TAKE 1 TABLET BY MOUTH TWICE DAILY 08/15 completed Not Available Not Available Not Available fluoxetin e 10 mg tablet TAKE 1 TABLET BY MOUTH ONCE DAILY IN THE MORNING FOR 7 DAYS active Not Available Not Available No t Available clonazepa m 1 mg tablet TAKE 1 TABLET BY MOUTH TWICE DAILY active Not Available Not Available No t Available phentermi ne 15 mg capsule Take 1 capsule every day by oral route for 30 days. 08/15 completed Not Available Not Available Not Available venlafaxi ne ER 150 mg capsule,e xtended release 24 hr TAKE 1 CAPSULE BY MOUTH ONCE DAILY IN THE MORNING FOR 30 DAYS active Not Available Not Available No t Available divalproe x 500 mg tablet,de layed release Take 1 tablet twice a day by oral route. 07/11 completed Not Available Not Available Not Available folic acid 400 mcg tablet TAKE 1 TABLET BY MOUTH ONCE DAILY IN THE MORNING active Not Available Not Available No t Available tramadol 50 mg tablet TAKE 1 TABLET BY MOUTH EVERY 4 TO 6 HOURS NEEDED FOR PAIN 08/15 completed Not Available Not Available Not Available lamotrigi ne 25 mg tablet TAKE 1 TABLET BY MOUTH ONCE DAILY FOR 14 DAYS THEN 2 ONCE DAILY THEREAFT ER 07/11 completed Not Available Not Available Not Available nortripty line 25 mg capsule Take 1 capsule 3 times a day by oral route. active Not Available Not Available No t Available risperido ne 2 mg tablet TAKE 1 2 (ONE HALF) TABLET BY MOUTH IN THE MORNING AND 1 AT BEDTIME 05/09 completed Not Available Not Available Not Available Euthyrox 25 mcg tablet Take 1 tablet every day by oral route in the morning for 30 days. 02/12 completed Not Available Not Available Not Available ofloxacin 0.3 % ear drops INSTILL 5 DROPS INTO RIGHT EAR TWICE DAILY FOR 7 DAYS 08/15 completed Not Available Not Available Not Available lorazepam 0.5 mg tablet TAKE 1 TABLET BY MOUTH ONCE DAILY NEEDED FOR 14 DAYS active Not Available Not Available No t Available trazodone 100 mg tablet 05/09 completed Not Available Not Available Not Available dexametha sone 1 mg tablet Take 1 tablet as needed by oral route at bedtime for 1 day. active take dexa tablet at 10 pm night before 8 am cortisol Not Available Not Available Not Available levothyro xine 50 mcg tablet TAKE 1 TABLET BY MOUTH ONCE DAILY IN THE MORNING FOR 90 DAYS active Not Available Not Available No t Available flurandre nolide 0.05 % lotion 07/25 completed Not Available Not Available Not Available cyanocoba laureen (vit B-12) 1,000 mcg/mL injection solution INJECT 1 ML ONCE A WEEK IN THE MORNING active Not Available Not Available No t Available dexametha sone 4 mg tablet TAKE 2 TABLETS BY MOUTH ON DAY ONE, TAKE 2 TABLETS BY MOUTH ON DAY 2, THEN TAKE 1 TABLET ON DAY 3 01/24 completed Not Available Not Available Not Available buspirone 10 mg tablet TAKE 1 TABLET BY MOUTH THREE TIMES DAILY DIRECTED active Not Available Not Available No t Available divalproe x ER 500 mg tablet,ex tended release 24 hr TAKE 1 TABLET BY MOUTH ONCE DAILY AT BEDTIME FOR 90 DAYS active Not Available Not Available No t Available losartan 25 mg tablet TAKE 1 TABLET BY MOUTH ONCE DAILY active Not Available Not Available No t Available gabapenti n 300 mg capsule 05/09 completed Not Available Not Available Not Available diclofena c sodium 75 mg tablet,de layed release 08/15 completed Not Available Not Available Not Available acetamino phen 300 mg-codein e 60 mg tablet TAKE 1 TABLET BY MOUTH THREE TIMES DAILY NEEDED active Not Available Not Available No t Available ergocalci ferol (vitamin D2) 1,250 mcg (50,000 unit) capsule TAKE 1 CAPSULE BY MOUTH ONCE A WEEK DIRECTED active Not Available Not Available No t Available albuterol sulfate HFA 90 mcg/actua tion aerosol inhaler INHALE 1 PUFF BY MOUTH EVERY 4 HOURS NEEDED 12/19 completed Not Available Not Available Not Available fluoxetin e 20 mg capsule TAKE 1 CAPSULE BY MOUTH ONCE DAILY IN THE MORNING active Not Available Not Available No t Available metformin ER 500 mg tablet,ex tended release 24 hr TAKE 1 TABLET BY MOUTH TWICE DAILY BEFORE MEAL(S) active Not Available Not Available No t Available doxycycli ne hyclate 100 mg tablet TAKE 1 TABLET BY MOUTH TWICE DAILY 08/15 completed Not Available Not Available Not Available calcitrio l 0.25 mcg capsule TAKE 1 CAPSULE BY MOUTH EVERY OTHER DAY active Not Available Not Available No t Available lamotrigi ne 100 mg tablet TAKE 1 TABLET BY MOUTH ONCE DAILY DIRECTED active Not Available Not Available No t Available prazosin 2 mg capsule TAKE 1 CAPSULE BY MOUTH ONCE DAILY AT BEDTIME FOR 30 DAYS 07/26 completed Not Available Not Available Not Available buspirone 15 mg tablet TAKE 1 TABLET BY MOUTH THREE TIMES DAILY DIRECTED FOR 30 DAYS 05/09 completed Not Available Not Available Not Available duloxetin e 30 mg capsule,d elayed release TAKE 1 CAPSULE BY MOUTH ONCE DAILY IN THE MORNING active Not Available Not Available No t Available pregabali n 75 mg capsule TAKE 1 CAPSULE BY MOUTH THREE TIMES DAILY 08/15 completed Not Available Not Available Not Available chlorhexi dine gluconate 0.12 % mouthwash RINSE WITH 1/2 OZ (ONE CAPFUL) FOR 30 SECONDS AND EXPECTOR ATE TWICE A DAY FOR 2 WEEKS 12/19 completed Not Available Not Available Not Available metformin ER 500 mg 24 hr tablet,ex tended release (gastric retention ) Take 1 tablet twice a day by oral route before meals for 90 days. 07/11 completed Not Available Not Available Not Available quetiapin e 50 mg tablet TAKE 1 TABLET BY MOUTH ONCE DAILY AT BEDTIME FOR 30 DAYS 07/26 completed Not Available Not Available Not Available cyclobenz aprine 7.5 mg tablet TAKE 1 TABLET BY MOUTH THREE TIMES DAILY NEEDED FOR MUSCLE SPASM active Not Available Not Available No t Available Vitamin D3 50 mcg (2,000 unit) capsule TAKE 2 CAPSULES BY MOUTH ONCE DAILY IN THE MORNING 12/19 completed Not Available Not Available Not Available TRUEplus Insulin 1 mL 31 gauge x 5/16 syringe USE 1 SYRINGE ONCE A WEEK 07/11 completed Not Available Not Available Not Available Breo Ellipta 100 mcg-25 mcg/dose powder for inhalatio n INHALE 1 PUFF BY MOUTH ONCE DAILY 12/19 completed Not Available Not Available Not Available Vraylar 6 mg capsule TAKE 1 CAPSULE BY MOUTH ONCE DAILY IN THE MORNING FOR 30 DAYS active Not Available Not Available No t Available Vraylar 3 mg capsule TAKE 1 CAPSULE BY MOUTH ONCE DAILY IN THE MORNING FOR 30 DAYS active Not Available Not Available No t Available Relistor 150 mg tablet Take 3 tablets every day by oral route. active Not Available Not Available No t Available Pfizer COVID-19 Vaccine (EUA) 07/25 completed Not Available Not Available Not Available Paxlovid 300 mg (150 mg x 2)-100 mg tablets in a dose pack TAKE 3 TABLETS TOGETHER (TWO 150 MG NIRMATRE LVIR TABLETS AND ONE 100 MG RITONAVI R TABLET) BY MOUTH TWICE DAILY FOR 5 DAYS. 07/11 completed Not Available Not Available Not Available Vitals Date Recorded Body mass index (BMI) Heart rate Body height Oxygen saturation Oxygen saturation in Arterial blood by Pulse oximetry Heart rate Respiratory rate Body temperature Body weight Systolic blood pressure Diastolic blood pressure Provider Name and Address Organization Details Last Updated DateTime 2 37.4 kg/m2 99 /min 170.18 cm 98 % 98 % 99 /min 18 /min 97.7 [degF] 637466. 58 g 128 mm[Hg] 70 mm[Hg] Not Available [facility] 3 02:29:52 Date Recorded Body mass index (BMI) Heart rate Body height Oxygen saturation Oxygen saturation in Arterial blood by Pulse oximetry Heart rate Respiratory rate Body temperature Body weight Systolic blood pressure Diastolic blood pressure Provider Name and Address Organization Details Last Updated DateTime 2 37.6 kg/m2 90 /min 170.18 cm 97 % 97 % 90 /min 17 /min 97.5 [degF] 060505. 17 g 142 mm[Hg] 78 mm[Hg] Not Available [facility] 3 02:29:52 Date Recorded Body mass index (BMI) Heart rate Body height Oxygen saturation Oxygen saturation in Arterial blood by Pulse oximetry Heart rate Respiratory rate Body temperature Body weight Systolic blood pressure Diastolic blood pressure Provider Name and Address Organization Details Last Updated DateTime 3 37 kg/m2 100 /min 170.18 cm 99 % 99 % 100 /min 16 /min 97.7 [degF] 477134. 8 g 128 mm[Hg] 82 mm[Hg] Not Available [facility] 3 02:29:53 Date Recorded Body height Provider Name an d Address Organization Details Last Updated DateTime 01/24/2022 170.18 cm Not Available [facility] 3 02:29:53 Date Recorded Body height Body mass index (BMI) Body weight Body temperature Heart rate Systolic blood pressure Diastolic blood pressure Provider Name and Address Organization Details Last Updated DateTime 3 170.18 cm 36.1 kg/m2 378226. 4 g 97.3 [degF] 90 /min 124 mm[Hg] 73 mm[Hg] OSCAR Serra [place] [facility] [place] [facility] [place] [facility] 3 14:45:22 Social History Question Answer Notes LastModified by Organizat ion Details LastModified Time Tobacco Smoking Status Current Every Day Smoker Not Available [facility] 08/28/2022 02:24:59 What Is Your Level Of Alcohol Consumption? None MIGRATION.29827 10122 Information not available 08/28/2022 What Is Your Level Of Caffeine Consumption? Heavy MIGRATION.82120 34602 Information not available 08/28/2022 How Much Tobacco Do You Chew? None MIGRATION.22333 50783 Information not available 08/28/2022 In The 14 Days Before Symptom Onset, Have You Had Close Contact With A Laboratory-confi rmed COVID-19 While That Case Was Ill? No MIGRATION.54107 65065 Information not available 08/28/2022 In The 14 Days Before Symptom Onset, Have You Had Close Contact With A Person Who Is Under Investigation For COVID-19 While That Person Was Ill? No MIGRATION.64230 12197 Information not available 08/28/2022 What Type Of Diet Are You Following? REGULAR MIGRATION.29906 89191 Information not available 08/28/2022 Which Illicit Or Recreational Drugs Have You Used? Marjiuania MIGRATION.93175 28780 Information not available 08/28/2022 Do You Or Have You Ever Used E-cigarettes Or Vape? Never Used Electronic Cigarettes MIGRATION.22779 08179 Information not available 08/28/2022 What Is The Highest Grade Or Level Of School You Have Completed Or The Highest Degree You Have Received? [id number] MIGRATION.49373 45775 Information not available 08/28/2022 Do You Have An Electrostatic Air Filter? 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 Disabled [id number] Information not available 09/03/2022 Are There Any Guns Present In Your Home? No MIGRATION.19679 37478 Information not available 08/28/2022 Do You Have A Humidifier? No MIGRATION.03871 67954 Information not available 08/28/2022 Where Do You Live? [place] MIGRATION.96306 27891 Information not available 08/28/2022 Do You Have A Medical Power Of Photographer Portrait? No MIGRATION.48532 36281 Information not available 08/28/2022 Do You Have Moisture Problems In Your Home? No MIGRATION.65833 89907 Information not available 08/28/2022 What Was The Date Of Your Most Recent Tobacco Screening? 08/15/2022 MIGRATION.89414 76457 Information not available 08/28/2022 What Is Your Relationship Status? Single MIGRATION.49389 73632 Information not available 08/28/2022 Do You Use Your Seat Belt Or Car Seat Routinely? Yes MIGRATION.06390 94722 Information not available 08/28/2022 Do You Have Smoke And Carbon Monoxide Detectors In Your Home? Yes MIGRATION.05565 78679 Information not available 08/28/2022 Are You Passively Exposed To Smoke? No MIGRATION.83659 35997 Information not available 08/28/2022 Do You Or Have You Ever Used Smokeless Tobacco? Never Used Smokeless Tobacco MIGRATION.87606 08914 Information not available 08/28/2022 How Much Tobacco Do You Smoke? 0.5 PPD MIGRATION.77231 04289 Information not available 08/28/2022 Do You Feel Stressed (tense, Restless, Nervous, Or Anxious, Or Unable To Sleep At Night)? [id number] MIGRATION.05248 46427 Information not available 08/28/2022 Do You Use Any Illicit Or Recreational Drugs? Yes MIGRATION.20765 32123 Information not available 08/28/2022 Do You Use Sunscreen Routinely? No MIGRATION.79620 26738 Information not available 08/28/2022 Has Tobacco Cessation Counseling Been Provided? No MIGRATION.18563 84748 Information not available 08/28/2022 Have You Recently Traveled Abroad? No MIGRATION.53777 57929 Information not available 08/28/2022 Do You Have Any Dietary Restrictions? No MIGRATION.31810 41700 Information not available 08/28/2022 Sex: Female Functional Status Question Answer Note LastModified by Organizat ion Details LastModified Time What is your exercise level? None [id number] Information not available 08/28/2022 Mental Status None recorded. Family History Relationship Description Onset Age of this Age Resolved Age Notes LastModified by Organization Details LastModified Time Son Non-Hodgkin' s lymphoma (clinical) MIGRATION.821 [id number] Not available 08/28/2022 02:29:40 Son Asthma MIGRATION.331 [id number] Not available 08/28/2022 02:29:40 Maternal Grandmother Malignant tumor of stomach MIGRATION.679 [id number] Not available 08/28/2022 02:29:40 Maternal Grandfather Malignant tumor of lung MIGRATION.198 [id number] Not available 08/28/2022 02:29:40 Father Hypertensive disorder MIGRATION.127 [id number] Not available 08/28/2022 02:29:40 Mother Hypertensive disorder MIGRATION.773 [id number] Not available 08/28/2022 02:29:40 Mother Idiopathic pulmonary fibrosis MIGRATION.984 [id number] Not available 08/28/2022 02:29:40 Daughter Asthma MIGRATION.163 [id number] Not available 08/28/2022 02:29:40 Medical History Condition Response THYROID DISEASE Y ARTHRITIS Y GI PROBLEMS Y KIDNEY DISEASE Y HYPERTENSION Y HIGH CHOLESTEROL / HYPERLIPIDEMIA Y NEUROLOGICAL PROBLEMS Y ANEMIA/BLOOD DISORDER Y DEPRESSION (INCLUDING POST ) Y HAVE YOU BEEN HOSPITALIZED OR SEEN IN [facility] IN THE PAST YEAR ? Y Gynecological HistoryNo gynecological history recorded. Obstetrics History GPAL:G 0 P 0 0 0 0 Immunizations Vaccine Type Date Status Note Provider [facility] e and Address Organization Details Recorded Time COVID-19, mRNA, LNP-S, PF, 100 mcg/0.5mL dose or 50 mcg/0.25mL dose 09/28/2020 completed Not Available [facility] 3 14:49:04 COVID-19, mRNA, LNP-S, PF, 100 mcg/0.5mL dose or 50 mcg/0.25mL dose 08/28/2020 completed Not Available [facility] 3 14:49:04 Past Encounters Encounter ID Performer Location Encounter Start Date Encounter Closed Date Diagnosis/Indication Diagnosis SNOMED-CT Code Diagnosis ICD10 Code Diagnosis Note [id number] [facility] Barbara Huitron [address] [address] 09/01/2020 00:00:00 10/26/2020 10:40:47 [id number] [facility] [address] [place] [address] [address] 09/28/2020 00:00:00 09/28/2020 14:27:24 [id number] [facility] [address] [place] [address] [address] 11/23/2020 00:00:00 11/23/2020 14:23:16 [id number] [facility] [address] [place] [address] [address] 12/06/2020 00:00:00 12/07/2020 19:11:40 [id number] [facility] [address] [place] [address] [address] 01/04/2021 00:00:00 02/27/2021 12:46:12 [id number] [facility] [address] [place] [address] [address] 03/07/2021 00:00:00 03/07/2021 14:25:53 [id number] [facility] [address] Barbara Huitron, [address] [place] [address] 04/10/2021 00:00:00 04/10/2021 14:51:19 [id number] [facility] [address], [facility] [place] [address] 08/06/2021 00:00:00 08/06/2021 17:24:01 [id number] [facility] [address] Barbara Huitron, [facility] [place] [address] 09/03/2021 00:00:00 09/03/2021 15:43:22 [id number] [facility] Luis Huitron, [address] [place] [address] 10/01/2021 00:00:00 10/01/2021 15:55:50 [id number] [facility] Luis Huitron, [address] [address] 12/27/2021 00:00:00 12/27/2021 15:26:58 [id number] [facility] 4 Barbara Huitron, [address] [address] 01/10/2022 00:00:00 01/10/2022 12:13:39 [id number] [facility] Luis Huitron, [address] [address] 02/11/2022 00:00:00 02/11/2022 11:56:03 [id number] [facility] 4 Barbara Huitron, [address] [address] 03/12/2022 00:00:00 03/12/2022 12:32:24 [id number] [facility] Luis Huitron, [address] [address] 04/22/2022 00:00:00 04/22/2022 15:13:43 [id number] [facility] Luis Huitron [address] [address] 06/19/2022 00:00:00 06/19/2022 12:43:42 [id number] [facility] [place] [address] [place] [address] 09/18/2020 00:00:00 09/18/2020 12:07:07 [id number] [facility] [place] [address] [place] [address] 10/30/2020 00:00:00 10/30/2020 17:18:26 [id number] [facility] [place] [address] [place] [address] 02/12/2021 00:00:00 02/12/2021 17:44:33 [id number] [facility] [place] [address] [address] 07/26/2021 00:00:00 07/26/2021 13:10:31 [id number] [facility] [address] [place] [address] 08/16/2021 00:00:00 08/16/2021 14:33:10 [id number] _ATHENA_M IGRATION_ DEFAULT_1 _1 , 01/24/2022 00:00:00 01/24/2022 13:14:59 [id number] [facility] [address] [place] [address] 08/15/2022 00:00:00 08/15/2022 14:46:14 [id number] Dona Ba NP [facility] [address] [place] [address] 09/02/2022 11:13:58 09/02/2022 17:43:09 [id number] [facility] [address] [place] [address] 10/17/2022 17:57:45 10/17/2022 18:33:36 [id number] [facility] [address] [place] [address] 11/20/2022 16:55:14 11/20/2022 17:47:25 [id number] Tiarra Ruiz MD [facility] [place] [facility] [address] [place] [address] 2022 14:30:56 2022 15:28:44 Prediabetes [id number] R73.03 a1c 5.1%- continue on metformin twice daily with meals as patient tolerating well. Discussed carb counting and how to read food labels. Recommende d patient to utilize the diabetesfo Olacabs.Root Orange from the ADA website to help with food preparatio n as this presents ideal carb content per meal so this will make carb counting much easier for patient. Recommende d she incorporat e natural insulin orthodontic lab technician s such as pears, apples, cinnamon, corrie and sweet potatoes to help mobilize her endogenous insulin. Recommende d up to 150 minutes of moderate level activity/e xercise weekly. Hypothyroidism [id number] E03.9 Continue LT4 50 mcg daily as thyroid levels in range. She was reminded to take her LT4 on empty stomach with glass of water and wait one hour to eat or have her coffee in morning and up to 4 hours if ever taking any heartburn or reflux medication s to help optimize absorption . Discussed paleo like diet with restrictio n of GMOs to help with energy and to optimize absorption of vitamins and minerals and reduce inflammati on. Arthritis [id number] M19.90 Will send for repeat JAZZ with specific antibodies along with rheumatoid screening to assess for any evidence of autoimmune disease. Vitamin D deficiency [id number] E55.9 Continue vitamin D 50- recommende d she drop to every other week during summer and continue on weekly dose during fall/ r months and daily vit D3 2000 IU daily for bone health. Spent up to 25 minutes preparing to see the patient (eg, review of tests), obtaining and/or reviewing separately obtained history, performing a medically appropriat e examinatio n and evaluation , counseling and educating the patient, ordering medication s, tests, along with documentin g clinical informatio n in the electronic health record, independen tly interpreti ng results and communicat ing results to the patient. RTC in 6 months. Patient was provided a handwritte n lab order which contains our fax number. If she chooses to go outside of the [facility] system to obtain labwork she was advised to provide our fax number and my informatio n to the lab she will be obtaining labwork from in order to have her labs properly forwarded over for me to review so there is no loss of follow up due to use of outside network. She was also advised to contact our clinic informing us that she has completed her labwork so we are aware we will need to [facility] to request her results be forwarded to us so I might have the ability to review and make further medical decision making in her case. She voiced understand ing. [id number] Dona Ba NP [facility] [address] [place] [address] 1 04/30/2023 14:03:57 04/30/2023 17:49:28 [id number] Dona Ba NP [facility] [address] [place] [address] 05/28/2023 15:52:11 05/28/2023 17:58:03 [id number] Dona Ba NP [facility] [address] [place] [address] 07/02/2023 12:36:06 07/02/2023 14:50:23 Health Concerns Section Related Observation LastModified by Organization Detai ls LastModified Time None Recorded Concern Status LastModified by Organization Details LastModified Time None Recorded Advance Directives Directive None Recorded Payers Encounter Date Sequence Insurance Name Policy Number Policy Tong Covered Member ID Tong Member ID Guarantor Name 2022 1 [employer] (MEDICARE REPLACEMENT HMO) Brie Sheridanr [id number] Brie Bicarmenr 2022 2 [place] [facility] Brie Bieser [id number] Brie Bieser Notes Date Note Type Note Provider Name and Address Organization Details Recorded Time 2022 text/html 51 yo female com es in for follow up in management of hypothyroidism, prediabetes (A1C of 5.1%), vit D/B12 def. last seen in December at that time we continued LT4 50 mcg daily. we continued vitamin D 50 weekly and added vit D 3 1000 IU every other day. We added B12 injections and continued metformin. we continued statin therapy and continued phentermine 15 mg daily. She has noticed more joint pains and aches. Redness of hands and feet and more fatigue. She follows Dr. Joaquin Joshi for hx of CKD. labs from 12/11/22:glucose 101 mg/dLCr normalLFT normal labs from 09/19:B12/folate [id number]/167/44/1 47vit D 43.5 ng/mLFT4 of 1.32 ng/dLa1c 5.1%TSH of 0.451 uIU/mlmicroalbumin 3.4 ug/mg Tiarra Ruiz MD [address] [address], [place], [address], [place] - [employer] [facility] 12/20/2022 00:16:58 OBGyn Episode No OBEpisode recorded.
--- OUTSIDE RECORDS SUMMARY | 2024-10-08 12:09 | XMS_ITS | Clinical Summary ---
Author Organization [facility] Address [address] [place] [address] Care Team Providers Care Light Rail Transit Operator Name Role Phone Unavailable Primary Care Provider [...]
--- OUTSIDE RECORDS SUMMARY | 2024-10-08 12:09 | XMS_ITS | Clinical Summary ---
Author Organization [facility] Address [address] [facility] [place] [address] Care Team Providers Care Manager Mountain Name Role Phone Marixa Guallpa MD Primary Care Provider [phone] Source Comments [facility],non-owned Affiliates and Associated Physician Practices is amultiple site organization consisting of ambulatory clinics and hospital sitesin [place], [place], [place] and [place]. This disclosure is being madepursuant to the Care Everywhere program and may not contain all information available regarding this patient. Last updated 18.[facility] Allergies No known active allergies Medications * [...] Comments HEMOGLOBIN A1C Routine 06/10/2018 11:59 AM PULVI MIXER OPERATOR Neuropathy from Last 3 Months or Most Recently Relevant to Health Maintenance Results * HEMOGLOBIN A1C (06/10/2018 11:59 AM PULVI MIXER OPERATOR) Hemoglobin A1c 5.4 4.4 - 6.3 % 06/10/2018 2:21 PM [facility] Estimated Average Glucose 108 mg/dL 06/10/2018 2:21 PM [facility] Comment: HbA1c Interpretation: Treatment target values recommended by ADA and other clinical organizations should be used to evaluate metabolic control in patients. Treatment Target Values: Normal : < 5.7% Pre-diabetes: 5.7-6.4% Diabetes: Equal to or greater than 6.5% Reference: [place] [employer] Standards of Care in Diabetes -2014 In patients 70 years and older consider HbA1c target range of 7.0-7.5% Reference: Diabetes Mellitus in Older People: Position Statement on behalf of the International Association of Gerontology and Geriatrics (IAGG), the Diabetes Working Libertarian for Older People (EDWPOP), and the International Task Force of Experts in Diabetes. Gerald Black, et al. J [employer] [employer] Association. 2012 Test results diagnostic [...] Lab Venipuncture / Unknown 06/10/2018 11:59 AM PULVI MIXER OPERATOR 06/10/2018 12:10 PM PULVI MIXER OPERATOR Jim Hargrove MD LAB - CHEMISTRY [facility] Organization Address City/State/ZIP Co de Phone Number [address] [phone] from Last 3 Months or Most Recently Relevant to Health Maintenance Care Teams Manager Mountain Relationship Specialty Start Date End Date Marixa Guallpa MD [address] [place] [id number] PCP - General 02/17/18
[2024-10-08 12:24] LABS: Alanine Aminotransferase 27 U/L (6-35); Albumin Level 4.6 g/dL (3.5-5.1); Alkaline Phosphatase 93 U/L (38-126); Anion Gap 14 mmol/L (4-12); Aspartate Amino Transferase 21 U/L (14-36); Bilirubin,Total 0.8 mg/dL (0.2-1.3); Blood Urea Nitrogen 10 mg/dL (7-17); Calcium 9.3 mg/dL (8.4-10.2); Carbon Dioxide 22 mmol/L (22-30); Chloride 103 mmol/L (98-107); Estimated CRCL calculation 70 ml/min; Estimated Glomerular Filt Rate 60; Glucose 153 mg/dL (65-110); Lactic Acid Reflex 4.2 mmol/L (0.7-2.0); Lipase 69 U/L (23-300); Potassium 3.8 mmol/L (3.4-5.0); Sodium 139 mmol/L (137-145)
[2024-10-08] MEDS: ONDANSETRON INJ 4 MG/2 ML VIAL IV PUSH (12:37)
[2024-10-08] MEDS: HYDROmorphone HCL INJ (*CRX) 1 MG/ML SYR IV PUSH (12:37)
[2024-10-08 12:42] LABS: Magnesium 1.8 mg/dL (1.6-2.3)
--- NOTE | 2024-10-08 12:56 | PC.NURSE ---
called lab to add on blood work to labs sent already
[2024-10-08 13:16] LABS: Prothrombin Time 13.8 Seconds (11.1-14.7)
[2024-10-08 13:19] LABS: Add Urine Microscopic? NO; Appearance Urine Clear (Clear); Bilirubin Urine Negative (Negative); Blood Urine Negative (Negative); Color Urine Yellow (Yellow); Glucose Urine UA Negative (Negative); Ketones Urine Negative (Negative); Leukocyte Esterase Ur Negative LEU/UL (Negative); Nitrate Urine Negative (Negative); Protein Urine Negative (Negative); Specific Grav Ur > 1.045 (1.001-1.035); pH Urine 7.5 (5.0-9.0)
[2024-10-08] MEDS: metroNIDAZOLE 500 MG TABLET PO (13:37)
[2024-10-08] MEDS: CIPROFLOXACIN 500 MG TAB PO (13:37)
[2024-10-08 13:54] LABS: Reflex Lactic Acid Yes or No Add Lactic
[2024-10-08 14:48] LABS: Lactic Acid 0.8 mmol/L (0.7-2.0)
[2024-10-08] MEDS: ACETAMINOPHEN 500 MG TABLET 1000 MG PO (14:50)
[2024-10-08] MEDS: KETOROLAC 15 MG/ML VIAL (*BKC) IV PUSH (14:51)
--- NOTE | 2024-10-08 15:31 | PC.NURSE ---
patient upon entering the room for discharge was in increased pain, with significantly more distention to abdomen with belly appearing taught and tender. spoke with Dr. Becerra who was going to see the patient again.
== END 2024-10-08 15:44 | disposition home or self-care (01) ==
PROVIDERS: Registered Nurse; Emergency Provider Student in an Organized Health Care Education/Training Program; PCP Family Medicine
DX: K57.32 Diverticulitis of large intestine without perforation or abscess without bleeding (principal); D72.829 Elevated white blood cell count, unspecified; E11.22 Type 2 diabetes mellitus with diabetic chronic kidney disease; I12.9 Hypertensive chronic kidney disease with stage 1 through stage 4 chronic kidney disease, or unspecified chronic kidney disease; N18.2 Chronic kidney disease, stage 2 (mild); J45.909 Unspecified asthma, uncomplicated; E03.9 Hypothyroidism, unspecified; K58.9 Irritable bowel syndrome, unspecified; F31.9 Bipolar disorder, unspecified; F17.210 Nicotine dependence, cigarettes, uncomplicated; Z79.899 Other long term (current) drug therapy; Z79.84 Long term (current) use of oral hypoglycemic drugs; R00.0 Tachycardia, unspecified; R94.31 Abnormal electrocardiogram [ECG] [EKG]
CPT/HCPCS: 36415; 71045; 74177; 80053; 81003; 83605; 83690; 83735; 85025; 85610; 85730; 93005; 96361; 96374; 96375; 99284; A9270; J1171; J1885; J2405; J7030; Q9967

== ENCOUNTER 2024-10-14 10:32 | Inpatient (IN) | payer MEDICARE, SELFPAY ==
[2024-10-14] VITALS (8 sets, daily range): BP systolic 100–171; BP diastolic 54–83; PULSE 62–125; RESP 14–18; TEMP 36.4–36.6; O2SAT 97–100; BMI 34.2
--- NOTE | ~2024-10-14 | CT_ITS ---
CLINICAL INDICATION: Right lower quadrant pain and diarrhea COMPARISON: 10/08/2024. TECHNIQUE: Multiple contiguous axial images of the abdomen and pelvis were performed following the ad ministration of with 100 mL Omnipaque-350 intravenous contrast The dose-length product (DLP) was 1145.85 mGy-cm. Automated exposure control and iterative reconstruction technique were employed. FINDINGS/OBSERVATIONS: Visualized lower thorax: Trace right basilar atelectasis, unchanged from prior. The remainder of the bilateral lung bases are clear. The heart is of normal size, without pericardial effusion. Small hiatal hernia is present. Liver: The liver demonstrates homogeneous enhancement and is not enlarged. Gallbladder and biliary system: The gallbladder is only minimally distended, and otherwise unremarkable. Pancreas: The pancreas enhances homogeneously without ductal dilatation. Spleen: The spleen enhances homogeneously and is not enlarged. Kidneys: The bilateral kidneys enhance symmetrically without hydronephrosis or renal calculi. Adrenal glands: Unremarkable. Gastrointestinal tract: Redemonstration an interval progression of significant mural thickening within the sigmoid colon with surrounding inflammatory change and multiple diverticula - findings consistent with acute/subacute d iverticulitis. A contained perforation is identified, an interval change from prior without a drainable fluid collec tion or gross free air. Appendix: The air-filled appendix is of normal caliber (axial series, images 131 through 139) Vasculature: Unremarkable. Lymph nodes: No pathologically enlarged or morphologically suspicious lymph nodes within the retroperitoneum or at the root of the mesentery. Pelvic structures: The bladder is only minimally distended, and otherwise unremarkable. The uterus is unremarkable. Body wall and musculoskeletal: Small fat-containing umbilical hernia. Age-appropriate degenerative disease within the lumbar spine. IMPRESSION: Interval progression of sigmoid diverticulitis now with a contained perforation. No drainable fluid collection or gross free air. 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 IMPRESSION: Interval progression of sigmoid diverticulitis now with a contained perforation . No drainable fluid collection or gross free air.
--- OUTSIDE RECORDS SUMMARY | 2024-10-14 11:20 | XMS_ITS | Clinical Summary ---
Author Organization [facility] Address [address] [place] [address] Care Team Providers Care Control Operator Flow Coat Name Role Phone Unavailable Primary Care Provider [...] Screening with HPV 1998 Mammogram Screening 2008 Pneumococcal Vaccine: 50+ Ye ars (1 of 1 - PCV) 2018 Zoster Vaccines (1 of 2) 2018 COVID-19 [...]
--- OUTSIDE RECORDS SUMMARY | 2024-10-14 11:21 | XMS_ITS | Data Portability ---
Author Organization [place] - [employer], Main Office Address [address] [place] [address] Care Team Providers Care Pulp Drier Name Role Phone MAXIMILIANO OBRIEN Primary Care Provider [phone] Assessment No assessment recorded. Plan of Treatment Reminders Order Date Submit Date Provider Last Modified By Organization Details Last Modified Time Details Appointments None recorded. Lab rf (rheumatoid factor), serum 2022 023 BATH [facility], [address], [place], [address], 3 15:22:49 JAZZ (antinuclea r antibodies) screen, serum 2022 023 BATH [facility], 2022 [address], [address], [place], [address], 3 15:22:48 ESR (erythrocyt e sedimentati on rate), blood 2022 023 BATH [facility], 2022 [address] Walker, [address], [place], [address], 3 15:22:48 C reactive protein, QN, serum or plasma 2022 023 [facility], 2022 [address] Walker, [address], [place], [address], 3 15:22:48 ccp (cyclic citrullinat ed peptide) iga+igg, serum 2022 023 BATH [facility], 2022 [address] Walker, [address], [place], [address], 3 15:22:50 HbA1c (hemoglobin A1c), blood [address] [facility], 2022 Fat[address] Walker, [address], [place], [address], 3 15:22:50 insulin, serum [address] [facility], 2022 Fatuma Walker, [address], [place], [address], 3 15:22:49 lipid panel, serum [address] [facility], 2022 Fatuma Walker, [address], [place], [address], 3 03:31:18 TSH + free T4, serum [address] [facility], 2022 Fatuma Walker, [address], [place], [address], 3 03:31:18 T3, free, serum or plasma [address] [facility], 2022 Fatuma Walker, [address], [place], [address], 3 15:22:49 CMP, serum or plasma [address] [facility], 2022 Fat[address] Walker, [address], [place], [address], 3 15:22:50 Referral None recorded. Procedures None recorded. Surgeries None recorded. Imaging None recorded. Medication Orders ergocalcife rol (vitamin D2) 1,250 mcg (50,000 unit) capsule 2022 023 [facility] [address], [address] [facility], [place], [address], 3 15:25:56 metformin ER 500 mg 24 hr tablet,exte nded release (gastric retention) 2022 023 [id number] [facility] [address] , [place], [address], 4 09:37:40 levothyroxi ne 50 mcg tablet 2022 023 BLANCO [facility] [address] , [place], [address], 3 15:25:55 Patient TargetsNo targets recorded. Patient InstructionsNo instructions recorded. Reason for Referral None Reported. Results Created Date Observation Date Name Description Value Unit Range Abnormal Flag Note LastModifiedBy Organization Detail LastModifiedTime 01/02/20 22 01/08/2022 INSUL IN insulin commen t SENT TO REFER ENCE LAB; SEE SEPAR ATE REPOR T Not Available [facility] (Lab) [address] [place], [address], 01/08/2022 14:22:13 01/02/20 22 01/01/2022 VITAM IN B12 (KASSIDY LAUREEN ) vb12 440 pg/mL 239-93 1 Not Available [facility] (Lab) [address] [place], [address], 01/01/2022 21:41:28 01/02/20 22 01/01/2022 FOLAT E, SERUM /PLAS MA folate 5.91 NG/mL 2.76-2 0.0 Not Available [facility] (Lab) [address] [place], [address], 01/01/2022 21:41:23 01/02/20 22 01/01/2022 TSH thyroid-stim ulating hormone 0.811 uIU/m L 0.465- 4.680 Not Available [facility] (Lab) [address] [place], [address], 01/01/2022 21:04:24 01/02/20 22 01/01/2022 T3 FREE free T3 3.6 pg/mL 2.77-5 .27 Not Available [facility] (Lab) [address] [place], [address], 01/01/2022 20:47:17 01/02/20 22 01/01/2022 T4 FREE free T4 1.22 NG/dL 0.78-2 .19 Not Available [facility] (Lab) [address] [place], [address], 01/01/2022 20:47:06 01/02/20 22 01/01/2022 LIPID PANEL [...] WILL NOT BE REPOR ELSA. Not Available [facility] (Lab) [address] [place], [address], 01/01/2022 20:32:18 01/02/20 22 01/01/2022 LIPID PANEL cholesterol 284 mg/dL 140-19 9 high NIH JOYCE NSUS RECOM MENDA TION FOR DEXTER STERO L: ADULT CHILD LOW RISK: <200 <170 BORDE RLINE : <200- 239 ----- HIGH RISK: >240 >200 Not Available [facility] (Lab) [address] [place], [address], 01/01/2022 20:32:18 01/02/20 22 01/01/2022 LIPID PANEL triglyceride s 215 mg/dL 0-150 high NIH JOYCE NSUS REPOR T RECOM MENDA TION FOR TRIGL YCERI JEVON: ADULT CHILD LOW RISK: <150 ----- BODER LINE: 150-1 99 ----- HIGH RISK: >200 ----- Not Available [facility] (Lab) [address] [place], [address], 01/01/2022 20:32:18 01/02/20 22 01/01/2022 LIPID PANEL HDL cholesterol 51 mg/dL 40- Not Available [facility] (Lab) [address] [place], [address], 01/01/2022 20:32:18 01/02/20 22 01/01/2022 COMPR EHENS NUBIA METAB OLIC PANEL anion gap 11.4 mmol/ L 14-22 low Not Available [facility] (Lab) [address] [facility] [place], [address], 01/01/2022 20:32:08 01/02/20 22 01/01/2022 COMPR EHENS NUBIA METAB OLIC PANEL sodium 139 mmol/ L 137-14 5 Not Available [facility] (Lab) [address] [place], [address], 01/01/2022 20:32:08 01/02/20 22 01/01/2022 COMPR EHENS NUBIA METAB OLIC PANEL potassium 4.4 mmol/ L 3.5-5. 1 Not Available [facility] (Lab) [address] [place], [address], 01/01/2022 20:32:08 01/02/20 22 01/01/2022 COMPR EHENS NUBIA METAB OLIC PANEL chloride 107 mmol/ L 98-107 Not Available [facility] (Lab) [address] [place], [address], 01/01/2022 20:32:08 01/02/20 22 01/01/2022 COMPR EHENS NUBIA METAB OLIC PANEL carbon dioxide 25 mmol/ L 22-30 Not Available [facility] (Lab) [address] [place], [address], 01/01/2022 20:32:08 01/02/20 22 01/01/2022 COMPR EHENS NUBIA METAB OLIC PANEL glucose 101 mg/dL 70-99 high Not Available [facility] (Lab) [address] [place], [address], 01/01/2022 20:32:08 01/02/20 22 01/01/2022 COMPR EHENS NUBIA METAB OLIC PANEL BUN 10 mg/dL 8-19 Not Available [facility] (Lab) [address] [place], [address], 01/01/2022 20:32:08 01/02/20 22 01/01/2022 COMPR EHENS NUBIA METAB OLIC PANEL creatinine 0.85 mg/dL 0.66-1 .25 Not Available [facility] (Lab) [address] [place], [address], 01/01/2022 20:32:08 01/02/20 22 01/01/2022 COMPR EHENS NUBIA METAB OLIC PANEL GFR >60 Refer ence Range : [place] ge GFR Healt hy Adult : >60 [...] or ethni c subgr oups, such as [facility] nics. Outsi de the valid ated [...] calcu lator is avail able on the [employer] [facility] websi te: https :[email or web address] mix.hanny waller/pr ofess ional s/kdo qi/gf r_cal culat or Not Available [facility] (Lab) [address] [place], [address], 01/01/2022 20:32:08 01/02/20 22 01/01/2022 COMPR EHENS NUBIA METAB OLIC PANEL alkaline phosphatase 88 U/L 38-126 Not Available [facility] (Lab) [address] [place] [place], [address], 01/01/2022 20:32:08 01/02/20 22 01/01/2022 COMPR EHENS NUBIA METAB OLIC PANEL alanine aminotransfe rase 16 U/L 0-35 Not Available [facility] (Lab) [address] [place] [place], [address], 01/01/2022 20:32:08 01/02/20 22 01/01/2022 COMPR EHENS NUBIA METAB OLIC PANEL aspartate aminotransfe rase 21 U/L 15-37 Not Available [facility] (Lab) [address] [place], [address], 01/01/2022 20:32:08 01/02/20 22 01/01/2022 COMPR EHENS NUBIA METAB OLIC PANEL bilirubin, total 0.50 mg/dL 0.20-1 .30 Not Available [facility] (Lab) [address] [place], [address], 01/01/2022 20:32:08 01/02/20 22 01/01/2022 COMPR EHENS NUBIA METAB OLIC PANEL calcium 9.6 mg/dL 8.4-10 .2 Not Available [facility] (Lab) [address] [place], [address], 01/01/2022 20:32:08 01/02/20 22 01/01/2022 COMPR EHENS NUBIA METAB OLIC PANEL total protein 7.5 g/dL 6.3-8. 2 Not Available [facility] (Lab) [address] [place], [address], 01/01/2022 20:32:08 01/02/20 22 01/01/2022 COMPR EHENS NUBIA METAB OLIC PANEL albumin 4.2 g/dL 3.4-5. 0 Not Available [facility] (Lab) [address] [place], [address], 01/01/2022 20:32:08 01/02/20 22 01/01/2022 COMPR EHENS NUBIA METAB OLIC PANEL globulin 3.3 g/dL 2.6-4. 2 Not Available [facility] (Lab) [address] [place], [address], 01/01/2022 20:32:08 01/02/20 22 01/01/2022 COMPR EHENS NUBIA METAB OLIC PANEL A/G ratio 1.3 ratio 1.0-2. 0 Not Available [facility] (Lab) [address] [place], [address], 01/01/2022 20:32:08 01/02/20 22 01/01/2022 HEMOG LOBIN A1C HA1C 5.4 % 4.0-6. 0 Diabe viviana Scree annie Crite michael: <5.7% Consi stent with absen ce of diabe viviana 5.7-6 .4% Consi stent with incre ased risk for diabe viviana (pred iabet es) >OR=6 .5% Consi stent with diabe viviana REFER ENCE: Diabe viviana Care 2016, 39(Guaman ppl.1 ):s13 -s22 Not Available [facility] (Lab) [address] [place], [address], 01/01/2022 19:50:07 07/02/19 22 05/30/2021 compl ete PFT w/ post [facility] hodil ator eladia metry * No observ ation record ed. [id number] [facility] [address] [place], [address], 08/28/2022 02:35:39 Result Notes None recorded. Problems Name Problem SNOMED Code Status Onset Date Resolution Date Notes Provider Name and Address Organization Details Recorded Time Recurrent dislocation of shoulder region 70607992 Active Not Available [facility] 3 14:49:03 Vitamin D deficiency 57863171 Active 2021 Not Available [facility] 3 14:49:03 Dyslipidemia 683178489 Active 2021 Not Available [facility] 3 14:49:03 Arthritis 0135224 Active 2021 Not Available [facility] 3 14:49:03 Impaired fasting glycemia 933014879 Active 2021 Not Available [facility] 3 14:49:03 Hypothyroidis m 13865637 Active 2021 Not Available [facility] 3 14:49:04 Obesity 985637204 Active 2021 Not Available [facility] 3 14:49:04 Disorder of bursa of shoulder region 95235200 Active Not Available [facility] 3 14:49:04 Vitamin B12 deficiency (non anemic) 02085918 Active 2021 Not Available [facility] 3 14:49:04 Sleep apnea 35740975 Active 2021 Not Available [facility] 3 14:49:04 Mild persistent asthma 491647471 Active 2023 Cristel Gtz MA null, [place] [employer] 4 08:36:08 Notes:Medical History: Nicot ine dependence [...] Time 5 Carpal tunnel completed Not Available [facility] 2022 02:29:39 2 section completed Not Available [facility] 08/28/2022 02:29:39 ligation of bilateral fallopian tubes completed Not Available [facility] 08/28/2022 02:29:39 Imaging Results Imaging Date Name Status LastModified by Organization Details LastModified Time 05/30/2021 complete PFT w/ post bronchodilator spirometry* completed [id number] 1025 [facility] [address] [place], [address], 08/28/2022 02:35:39 Procedure Notes None recorded. Medical [...] % 99 /min 18 /min 97.7 [degF] 337539. 58 g 128 mm[Hg] 70 mm[Hg] Not Available [facility] 3 02:29:52 Date Recorded Body [...] % 90 /min 17 /min 97.5 [degF] 878518. 17 g 142 mm[Hg] 78 mm[Hg] Not Available [facility] 3 02:29:52 Date Recorded Body [...] % 100 /min 16 /min 97.7 [degF] 701115. 8 g 128 mm[Hg] 82 mm[Hg] Not Available [facility] 3 02:29:53 Date Recorded Body height Provider Name an d Address Organization Details Last Updated DateTime 01/24/2022 170.18 cm Not Available [facility] 3 02:29:53 Date Recorded Body height Body mass index (BMI) Body weight Body temperature Heart rate Systolic blood pressure Diastolic blood pressure Provider Name and Address Organization Details Last Updated DateTime 3 170.18 cm 36.1 kg/m2 488901. 4 g 97.3 [degF] 90 /min 124 mm[Hg] 73 mm[Hg] OSCAR Serra [place] [facility] 3 14:45:22 Social History Question Answer Notes LastModified by Organizat ion Details LastModified Time Tobacco Smoking Status Current Every Day Smoker Not Available [facility] 08/28/2022 02:24:59 What Is Your Level Of Alcohol Consumption? None MIGRATION.17254 [id number] Information not available 08/28/2022 What Is Your Level Of Caffeine Consumption? Heavy MIGRATION.76946 39119 Information not available 08/28/2022 How Much Tobacco Do You Chew? None MIGRATION.41735 88442 Information not available 08/28/2022 In The 14 Days Before Symptom Onset, Have You Had Close Contact With A Laboratory-confi rmed COVID-19 While That Case Was Ill? No MIGRATION.77332 04706 Information not available 08/28/2022 In The 14 Days Before Symptom Onset, Have You Had Close Contact With A Person Who Is Under Investigation For COVID-19 While That Person Was Ill? No MIGRATION.11677 27654 Information not available 08/28/2022 What Type Of Diet Are You Following? REGULAR MIGRATION.91836 97235 Information not available 08/28/2022 Which Illicit Or Recreational Drugs Have You Used? Marjiuania MIGRATION.46786 98443 Information not available 08/28/2022 Do You Or Have You Ever Used E-cigarettes Or Vape? Never Used Electronic Cigarettes MIGRATION.76817 89117 Information not available 08/28/2022 What Is The Highest Grade Or Level Of School You Have Completed Or The Highest Degree You Have Received? [id number] MIGRATION.35375 76170 Information not available 08/28/2022 Do You Have An Electrostatic Air Filter? No MIGRATION.00742 81410 Information not available 08/28/2022 What Is Your Occupation? Disabled [email or web address] Information not available 09/03/2022 Are There Any Guns Present In Your Home? No MIGRATION.41465 54234 Information not available 08/28/2022 Do You Have A Humidifier? No MIGRATION.78984 22022 Information not available 08/28/2022 Where Do You Live? [place] MIGRATION.80675 23462 Information not available 08/28/2022 Do You Have A Medical Power Of Charging Machine Operator? No MIGRATION.15931 90092 Information not available 08/28/2022 Do You Have Moisture Problems In Your Home? No MIGRATION.99595 65191 Information not available 08/28/2022 What Was The Date Of Your Most Recent Tobacco Screening? 08/15/2022 MIGRATION.81427 98111 Information not available 08/28/2022 What Is Your Relationship Status? Single MIGRATION.40294 00090 Information not available 08/28/2022 Do You Use Your Seat Belt Or Car Seat Routinely? Yes MIGRATION.33943 99448 Information not available 08/28/2022 Do You Have Smoke And Carbon Monoxide Detectors In Your Home? Yes MIGRATION.85351 80518 Information not available 08/28/2022 Are You Passively Exposed To Smoke? No MIGRATION.04141 18674 Information not available 08/28/2022 Do You Or Have You Ever Used Smokeless Tobacco? Never Used Smokeless Tobacco MIGRATION.79699 54194 Information not available 08/28/2022 How Much Tobacco Do You Smoke? 0.5 PPD MIGRATION.75625 33688 Information not available 08/28/2022 Do You Feel Stressed (tense, Restless, Nervous, Or Anxious, Or Unable To Sleep At Night)? [id number] MIGRATION.57591 38232 Information not available 08/28/2022 Do You Use Any Illicit Or Recreational Drugs? Yes MIGRATION.75014 28147 Information not available 08/28/2022 Do You Use Sunscreen Routinely? No MIGRATION.48462 14248 Information not available 08/28/2022 Has Tobacco Cessation Counseling Been Provided? No MIGRATION.66001 05062 Information not available 08/28/2022 Have You Recently Traveled Abroad? No MIGRATION.60946 03846 Information not available 08/28/2022 Do You Have Any Dietary Restrictions? No MIGRATION.24102 60145 Information not available 08/28/2022 Sex: Female Functional Status Question Answer Note LastModified by Organizat ion Details LastModified Time What is your exercise level? None MIGRATION.[id number] Information not available 08/28/2022 Mental Status None recorded. Family History Relationship Description Onset Age of this Age Resolved Age Notes LastModified by Organization Details LastModified Time Son Non-Hodgkin' s lymphoma (clinical) MIGRATION.205 [id number] Not available 08/28/2022 02:29:40 Son Asthma MIGRATION.527 9800080 Not available 08/28/2022 02:29:40 Maternal Grandmother Malignant tumor of stomach MIGRATION.437 2809047 Not available 08/28/2022 02:29:40 Maternal Grandfather Malignant tumor of lung MIGRATION.319 6839886 Not available 08/28/2022 02:29:40 Father Hypertensive disorder MIGRATION.134 7067018 Not available 08/28/2022 02:29:40 Mother Hypertensive disorder MIGRATION.357 1105535 Not available 08/28/2022 02:29:40 Mother Idiopathic pulmonary fibrosis MIGRATION.786 0623159 Not available 08/28/2022 02:29:40 Daughter Asthma MIGRATION.660 2652475 Not available 08/28/2022 02:29:40 Medical History Condition Response ARTHRITIS Y THYROID DISEASE Y GI PROBLEMS Y NEUROLOGICAL PROBLEMS Y ANEMIA/BLOOD DISORDER Y KIDNEY DISEASE Y DEPRESSION (INCLUDING POST ) Y HAVE YOU BEEN HOSPITALIZED OR SEEN IN TH E ER IN THE PAST YEAR ? Y HYPERTENSION Y HIGH CHOLESTEROL / HYPERLIPIDEMIA Y Gynecological HistoryNo gynecological history recorded. Obstetrics History GPAL:G 0 P 0 0 0 0 Immunizations Vaccine Type Date Status Note Provider Nam e and Address Organization Details Recorded Time COVID-19, mRNA, LNP-S, PF, 100 mcg/0.5mL dose or 50 mcg/0.25mL dose 09/28/2020 completed Not Available [facility] 3 14:49:04 COVID-19, mRNA, LNP-S, PF, 100 mcg/0.5mL dose or 50 mcg/0.25mL dose 08/28/2020 completed Not Available [facility] 3 14:49:04 Past Encounters Encounter ID Performer Location Encounter Start Date Encounter Closed Date Diagnosis/Indication Diagnosis SNOMED-CT Code Diagnosis ICD10 Code Diagnosis Note [id number] [facility] Barbara Huitron [address] [address] 09/01/2020 00:00:00 10/26/2020 10:40:47 [id number] [facility] [address] [place] [address] [address] 09/28/2020 00:00:00 09/28/2020 14:27:24 [id number] [facility] [address] [place] [address] [address] 11/23/2020 00:00:00 11/23/2020 14:23:16 [id number] [facility] [address] [place] [address] [address] 12/06/2020 00:00:00 12/07/2020 19:11:40 [id number] [facility] [address] [place] [address] [address] 01/04/2021 00:00:00 02/27/2021 12:46:12 [id number] [facility] [address] [place] [address] [address] 03/07/2021 00:00:00 03/07/2021 14:25:53 [id number] [facility] [address] Barbara Huitron, [address] [place] [address] 04/10/2021 00:00:00 04/10/2021 14:51:19 [id number] [facility] [address], [facility] [place] [address] 08/06/2021 00:00:00 08/06/2021 17:24:01 [id number] [facility] [address] Babrara Huitron, [facility] [place] [address] 09/03/2021 00:00:00 09/03/2021 15:43:22 [id number] [facility] Luis Huitron, [address] [place] [address] 10/01/2021 00:00:00 10/01/2021 15:55:50 [id number] [facility] Luis Huitron, [address] [address] 12/27/2021 00:00:00 12/27/2021 15:26:58 [id number] [facility] 4 Barbara Huitron, [address] [address] 01/10/2022 00:00:00 01/10/2022 12:13:39 [id number] [facility] Luis Huitron, [address] [address] 02/11/2022 00:00:00 02/11/2022 11:56:03 [id number] [facility] 4 Barbara Huitron, [address] [address] 03/12/2022 00:00:00 03/12/2022 12:32:24 [id number] [facility] Luis Huitron, [address] [address] 04/22/2022 00:00:00 04/22/2022 15:13:43 [id number] [facility] Luis Huitron [address] [address] 06/19/2022 00:00:00 06/19/2022 12:43:42 [id number] [facility] Endo Cantril [address] [place] [address] 09/18/2020 00:00:00 09/18/2020 12:07:07 [id number] [facility] Endo Cantril [address] [place] [address] 10/30/2020 00:00:00 10/30/2020 17:18:26 [id number] [facility] Endo Cantril [address] [place] [address] 02/12/2021 00:00:00 02/12/2021 17:44:33 [id number] [facility] [place] [address] [address] 07/26/2021 00:00:00 07/26/2021 13:10:31 [id number] [facility] [address] [place] [address] 08/16/2021 00:00:00 08/16/2021 14:33:10 [id number] _ATHENA_M IGRATION_ DEFAULT_1 _1 , 01/24/2022 00:00:00 01/24/2022 13:14:59 [id number] [facility] [address] [place] [address] 08/15/2022 00:00:00 08/15/2022 14:46:14 [id number] Dona Ba NP [facility] [address] [place] [address] 09/02/2022 11:13:58 09/02/2022 17:43:09 [id number] [facility] [address] [place] [address] 10/17/2022 17:57:45 10/17/2022 18:33:36 [id number] [facility] [address] [place] [address] 11/20/2022 16:55:14 11/20/2022 17:47:25 [id number] Tiarra Ruiz MD [facility] Endo Nilo Kwon [address] [place] [address] 2022 14:30:56 2022 15:28:44 Prediabetes [id number] R73.03 a1c 5.1%- continue on metformin twice daily with meals as patient tolerating well. Discussed carb counting and how to read food labels. Recommende d patient to utilize the diabetesfo Linchpin.Cellca from the ADA website to help with food preparatio n as this presents ideal carb content per meal so this will make carb counting much easier for patient. Recommende d she incorporat e natural insulin airveyor operator s such as pears, apples, cinnamon, corrie and sweet potatoes to help mobilize her endogenous insulin. Recommende d up to 150 minutes of moderate level activity/e xercise weekly. Hypothyroidism 97675000 E03.9 Continue LT4 50 mcg daily as [...] and minerals and reduce inflammati on. Arthritis 5902536 M19.90 Will send for repeat JAZZ with specific antibodies along with rheumatoid screening to assess for any evidence of autoimmune disease. Vitamin D deficiency 347 81265 E55.9 Continue vitamin D 50- recommende d [...] she chooses to go outside of the [facility] to obtain labwork she was [...] [facility] to request her results be forwarded to us so I might have the ability to review and make further medical decision making in her case. She voiced understand ing. [id number] Dona Ba NP [facility] [address] [place] [address] 1 04/30/2023 14:03:57 04/30/2023 17:49:28 [id number] Dona Ba NP [facility] [address] [place] [address] 05/28/2023 15:52:11 05/28/2023 17:58:03 [id number] Dona Ba NP [facility] [address] [place] [address] 07/02/2023 12:36:06 07/02/2023 14:50:23 Health Concerns Section Related Observation LastModified by Organization Detai ls LastModified Time None Recorded Concern Status LastModified by Organization Details LastModified Time None Recorded Advance Directives Directive None Recorded Payers Encounter Date Sequence Insurance Name Policy Number Policy Tong Covered Member ID Tong Member ID Guarantor Name 2022 1 [employer] (MEDICARE REPLACEMENT HMO) Brie Sheridanr [id number] Brie Bicarmenr 2022 2 [place]: [facility] Brie Bieser [id number] Brie Bieser Notes Date Note Type Note [...] 101 mg/dLCr normalLFT normal labs from 09/19:B12/folate swwenx380/167/44/1 47vit D 43.5 ng/mLFT4 of 1.32 ng/dLa1c 5.1%TSH of 0.451 uIU/mlmicroalbumin 3.4 ug/mg Tiarra Ruiz MD [address] [address], [place], [address], [place] [employer] [facility] 12/20/2022 00:16:58 OBGyn Episode No OBEpisode recorded.
--- OUTSIDE RECORDS SUMMARY | 2024-10-14 11:21 | XMS_ITS | Patient Health Record ---
Author Organization [facility] fel[facility] Office Address [address] [place] [address] Care Team Providers Care Knee Bolter Name Role Phone Joaquin Joshi Unavailable [phone] REASON FOR REFERRAL No Information MEDICATIONS Medication SIG (Take, Route, Frequency, Duration) Notes Start Date End Date Status Vitamin D (Ergocalciferol) 1.25 MG (09014 UT) Take 1 capsule by mouth once [...] d ue to type 2 diabetes mellitus (724945234811122) Problem Secondary hyperparathyroid ism, not elsewhere classified (E21.1) Active confirmed Secondary hyperparathyroidism (90900468) Problem Essential (primary) hypertension (I10) Active confirmed Essential hypertension (35953899) Problem Chronic kidney disease, stage 2 (mild) (N18.2) Active confirmed Chronic kidne y disease stage 2 (538159155) Problem Renal osteodystrophy (N25.0) Active confirmed Renal osteodyst rophy (15010987) PLAN OF TREATMENT No Information
--- OUTSIDE RECORDS SUMMARY | 2024-10-14 11:21 | XMS_ITS | Clinical Summary ---
Author Organization [email or web address] Address [address] [place] [address] Care Team Providers Care Application Spec Name Role Phone Marixa Guallpa MD Primary Care Provider [phone] Source Comments [email or web address],non-owned Affiliates and Associated Physician Practices is amultiple site organization consisting of ambulatory clinics and hospital sitesin [place], [place], [place] and [place]. This disclosure is being madepursuant to the Care Everywhere program and may not contain all information available regarding this patient. Last updated 18.[email or web address] Allergies No known active allergies Medications * Be aware that medications may not be up to date on this document. Alwaysverify current medications with the patient. risperiDONE (RISPERDAL) 2 MG tablet 1 mg 2 times daily 1 8 Active clonazePAM (KLONOPIN) 1 MG tablet Take 1 mg by mouth 3 times daily 0 8 Active venlafaxine XR 24hr (EFFEXOR XR) 150 MG capsule Take 150 mg by mouth once daily 0 8 Active cyclobenzaprin e (FLEXERIL) 10 MG tablet Take 10 mg by mouth once daily 2 9 Active valACYclovir (VALTREX) 1 GM tablet Take 1,000 mg by mouth every 8 hours 0 8 Active gabapentin (NEURONTIN) 300 MG capsule Take 2 capsules by mouth 3 times daily 180 capsule 5 9 Active busPIRone (BUSPAR) 15 MG tablet Take 15 mg by mouth 3 times daily 2 9 Active traZODone (DESYREL) 50 MG tablet Take 50 mg by mouth at bedtime 2 9 Active atorvastatin (LIPITOR) 20 MG tablet Take 20 mg by mouth at bedtime Active Cholecalcifero l 50 MCG (2000 UT) Take 2 capsules [...] Take 500 mg by mouth once daily Active cetirizine (ZYRTEC) 10 MG tablet Take [...] gion without neurogenic claudication 08/31/2018 02/12/2019 Immunizations Immunization Administration Dates Next Due FLU VACCINE TRI IIV3 SPLIT PF IM (FLUVIRIN) 03/30 Social History Tobacco Use Types Packs/Day Years Used Date Smoking Tobacco: Every Day Cigarettes Smokeless Tobacco: Never Tobacco Cessation:Ready to Q uit: Yes; Counseling Given: Yes Alcohol Use Standard Drinks/Week Comments No 0 (1 standard drink = 0.6 oz pur e alcohol) Comments No Sex and Gender Information Value Date Recorded Sex Assigned at Not on file Legal Sex Female 11:51 AM CDT Gender Identity Not on file Sexual [...] - COLON CA SCREENING 1968 MAMMOGRAM 1968 HIV SCREENING 12/20/1983 HEPATITIS C SCREENING 12/15/1986 DTAP/TDAP/TD VACCINES (1 - Tdap) 12/20/1987 HEPATITIS B VACCINE (1 of 3 - 19+ 3-dose series) 12/20/1987 PNEUMOCOCCAL VACCINE 50+ (1 of 2 - PCV) 12/20/1987 ZOSTER [...] Comments HEMOGLOBIN A1C Routine 06/10/2018 11:59 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 Treatment Target Values: Normal : < 5.7% Pre-diabetes: 5.7-6.4% Diabetes: Equal to or greater than 6.5% Reference: [place] Diabetes Association Standards of Care in Diabetes -2014 In patients 70 years and older consider HbA1c target range of 7.0-7.5% Reference: Diabetes Mellitus in Older People: Position Statement on behalf of the International Association of Gerontology and Geriatrics (IAGG), the Diabetes Working Democrat for Older People (EDWPOP), and the International Task Force of Experts in Diabetes. Gerald Black, et al. J [place] Medical Directors Association. 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
[2024-10-14 12:21] LABS: BEDSIDEPREGUCG Negative (Negative)
[2024-10-14 12:24] LABS: Basophils Absolute Auto 0.1 K/mm3 (0.0-0.1); Eosinophils Absolute Auto 0.1 K/mm3 (0-0.3); Eosinophils Percent Auto 1.5 % (0-4.4); Hematocrit 44.3 % (37.0-47.0); Hemoglobin 14.5 g/dL (12.0-15.0); Immature Granulocyte Absolute 0.03 K/mm3 (0.00-0.031); Immature Granulocyte Percent A 0.5 % (0-0.5); Lymphocytes Absolute Auto 2.56 K/mm3 (0.9-3.2); Mean Corpuscular HGB Conc 32.7 g/dl (32-36); Mean Corpuscular Hemoglobin 29.7 pg (26-34); Mean Corpuscular Volume 90.6 fl (80-100); Mean Platelet Volume 10.3 fl (7.4-10.4); Monocytes Absolute Auto 0.5 K/mm3 (0.1-0.6); Monocytes Percent Auto 7.7 % (2.6-8.5); Neutrophils Absolute Auto 2.9 K/mm3 (1.3-6.7); Neutrophils Percent Auto 47.3 % (45.5-73.1); Platelet Count Result 341 k/mm3 (150-375); Red Blood Count 4.89 M/mm3 (4.2-5.4); Red Cell Distribution Width 13.7 % (11.5-14.5); White Blood Count 6.1 K/mm3 (4.5-10.0)
[2024-10-14 12:33] LABS: Add Urine Microscopic? YES; Appearance Urine Cloudy (Clear); Bacteria Urine None Seen /hpf; Bilirubin Urine Negative (Negative); Blood Urine Negative (Negative); Color Urine Dark Yellow (Yellow); Glucose Urine UA Negative (Negative); Ketones Urine Trace mg/dL (Negative); Leukocyte Esterase Ur Trace LEU/UL (Negative); Need Manual Microscopic Reviewed; Nitrate Urine Negative (Negative); Non Pathogenic Casts 0-2; Protein Urine Negative (Negative); Specific Grav Ur 1.021 (1.001-1.035); Squamous Epithelial Cell Urine Few /hpf (Few); WBC Urine 0-5 /hpf (0-3)
[2024-10-14 12:40] LABS: Alanine Aminotransferase 19 U/L (6-35); Albumin Level 4.1 g/dL (3.5-5.1); Alkaline Phosphatase 59 U/L (38-126); Anion Gap 9 mmol/L (4-12); Aspartate Amino Transferase 30 U/L (14-36); Bilirubin,Total 0.4 mg/dL (0.2-1.3); Blood Urea Nitrogen 9 mg/dL (7-17); Calcium 9.4 mg/dL (8.4-10.2); Carbon Dioxide 24 mmol/L (22-30); Chloride 106 mmol/L (98-107); Estimated CRCL calculation 87 ml/min; Estimated Glomerular Filt Rate > 60; Glucose 89 mg/dL (65-110); Lipase 76 U/L (23-300); Potassium 4.6 mmol/L (3.4-5.0); Sodium 139 mmol/L (137-145)
--- OUTSIDE RECORDS SUMMARY | 2024-10-14 12:52 | XMS_ITS | Clinical Summary ---
Author Organization [facility] Address [address] [place] [address] Care Team Providers Care Grinder Machine Setter Name Role Phone Marixa Guallpa MD Primary Care Provider [phone] Source Comments [facility],non-owned Affiliates and Associated Physician Practices is amultiple site organization consisting of ambulatory clinics and hospital sitesin [place], [place], [place] and [place]. This disclosure is being madepursuant to the Care Everywhere program and may not contain all information available regarding this patient. 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 Treatment Target Values: Normal : < 5.7% Pre-diabetes: 5.7-6.4% Diabetes: Equal to or greater than 6.5% Reference: [place] Diabetes Association Standards of Care in Diabetes -2014 In patients 70 years and older consider HbA1c target range of 7.0-7.5% Reference: Diabetes Mellitus in Older People: Position Statement on behalf of the International Association of Gerontology and Geriatrics (IAGG), the Diabetes Working Constitution Party for Older People (EDWPOP), and the International Task Force of Experts in Diabetes. Gerald Black, et al. J [place] Medical Directors Association. 2012 Test results diagnostic [...] Lab Venipuncture / Unknown 06/10/2018 11:59 AM ORTHO NURSE 06/10/2018 12:10 PM [facility] us Jim Hargrove MD LAB - CHEMISTRY ORDERABLES Final Result [address] [phone] from Last 3 Months or Most Recently Relevant to Health Maintenance Insurance MEDICARE MEDICAID [facility] MEDICARE MEDICAID - [place] Care Teams Grinder Machine Setter Relationship Specialty Start Date End Date Marixa Guallpa MD [address] [place] [phone] PCP - General 02/17/18
--- OUTSIDE RECORDS SUMMARY | 2024-10-14 12:52 | XMS_ITS | Clinical Summary ---
Author Organization [facility] Address [address] [place] [id number] Care Team Providers Care Maintenance Tech Name Role Phone Unavailable Primary Care Provider [...]
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
[2024-10-14] MEDS: SODIUM CHLORIDE 0.9% IV 1,000 ML 999 ML IV CONT (13:12)
[2024-10-14] MEDS: MORPHINE SULFATE (*CRX) 4 MG/ML INJ IV PUSH ×2 (15:04→19:40)
[2024-10-14] MEDS: PIPERACILLN/TAZ 3.375GM/NS50ML 3.375 GM/50 ML BAG IVPB ×2 (15:05→21:45)
[2024-10-14 15:30] LABS: Lactic Acid Reflex 1.3 mmol/L (0.7-2.0)
--- NOTE | 2024-10-14 16:09 | P.CONGS_ITS ---
Assessment and Plan Assessment and plan (1) Diverticulitis of colon with perforation: Code(s): K57.20 - Diverticulitis of large intestine with perforation and abscess without bleeding Status: Acute Assessment and Plan: Imaging reviewed from both ER visits on 10/08/24 and today. It appears she has sigmoid diverticulitis with a microperforation, which is new from her previous CT scan. There is no abscess or large volume of intra-abdominal free air. This is her first episode of diverticulitis. Her abdominal pain was actually improving with the oral antibiotics and her white blood cell count is now normal. She has mild tenderness in the right lower quadrant and suprapubic area, but no peritoneal signs. We would recommend to continue IV antibiotics and will allow her to have clear liquids tonight. Will continue to follow with serial abdominal exams and labs. (2) Diabetes: Qualifiers: Diabetes mellitus type: type 2 Diabetes mellitus fci insulin use: unspecified fci insulin use status Diabetes mellitus complication status: without complication Qualified Code(s): E11.9 - Type 2 diabetes mellitus without complications Code(s): E11.9 - Type 2 diabetes mellitus without complications Status: Acute (3) Bipolar disorder: Qualifiers: Active/Remission status: currently active Current bipolar episode type: mixed Current episode severity: mild Qualified Code(s): F31.61 - Bipolar disorder, current episode mixed, mild Code(s): F31.9 - Bipolar disorder, unspecified Status: Acute (4) HTN (hypertension): Qualifiers: Hypertension type: essential hypertension Qualified Code(s): I10 - Essential (primary) hypertension Code(s): I10 - Essential (primary) hypertension Status: Acute Plan I have discussed the patient's case and plan of care with Dr. Bowen. History of Present Illness Consult details Consult date: 10/14/24 Reason for consult: other (Diverticulitis with micro perforation) Requesting physician: Nancy Lewis PA-C Narrative: This is a 53-year-old woman with PMH of HTN, diabetes, bipolar disorder, chronic back pain, and hypothyroidism, who we have been asked to see in consultation for diverticulitis with perforation. She presented to the ED 6 days ago for right-sided abdominal pain and had CT evidence of uncomplicated sigmoid diverticulitis. White blood cell count was 12,300. She was discharged home on ciprofloxacin and metronidazole, which she was reportedly taking as prescribed. She continued to have right-sided abdominal pain. She reports actually may have felt slightly better and was more localized in the right lower quadrant over the past few days. She has not had any fever chills. Yesterday, she had a foul taste in her mouth and was concerned that she had an infection throughout her body. She called her PCP who recommended she go to the ED for evaluation. Labs today show a normal white blood cell count. Repeat CT scan of the abdomen and pelvis showed sigmoid diverticulitis with micro perforation. Her vital signs are stable and she is afebrile in the ED. only previous abdominal surgery is a . Denies any previous episodes of diverticulitis. Last colonoscopy was about 4 years ago at [facility] with polyps and recommendation for a repeat in 5 years. To note, she is not currently taking any home medications. About a year ago, she felt like the medications were altering her mentation and she decided to stop taking all medications at that time and has not resumed any in the past year. Review of Systems 2 Review of Systems: All systems reviewed & are unremarkable except as noted in HPI and below PMFSH Past Medical History Medical History History of ovarian cyst History of IBS Stage 2 chronic kidney disease Asthma Diabetes Hypothyroidism DDD (degenerative disc disease) Upper respiratory infection Bipolar affect, depressed HTN (hypertension) Bipolar disorder Surgical History Surgical History History of section Family History Family History Father Alcohol abuse Hypertension Cerebrovascular accident Acute myocardial infarction Mother Alcohol abuse Asthma Son Non-Hodgkins lymphoma Grandparent Lung cancer non-smoker Grandparent Stomach cancer Other No active medical problems Social History Social History Smoking packs per day: 0.5 Smoking cigarettes per day: 10.0 Years smoked: 38 Smoking pack-years: 19.00 Smoking status: Current some day smoker Tobacco type: cigarettes Second hand tobacco smoke exposure: Yes Alcohol intake: never Substance use: current Substance use type: marijuana Other substance usage details: daily Lack of Transportation: No Lack of Food: Never True Current Housing: I Have Housing Concerned About Future Housing: No Difficulty Paying Gas/Electric Bills: No Difficulty Paying for Meds: No Currently Unemployed: Decline to Answer Education: High School Diploma/GED Living arrangements: with family Occupation/Education: unemployed Gender identity (if verbalized by the patient): Female Spiritual care concerns: No Agree to blood products: Yes Meds Home Medications and Allergies Home Medications ?Medication ?Instructions ?Recorded ?Confirmed ?Type buspirone 10 mg tablet 10 mg PO DAILY 05/06/20 12/02/22 History cariprazine 6 mg capsule (Vraylar) 6 mg PO DAILY 05/06/20 12/02/22 History atorvastatin 20 mg tablet 20 mg PO QHS 12/29/20 12/02/22 History calcium carbonate (Calcium 600) 600 mg PO DAILY 12/29/20 12/02/22 History cholecalciferol (vitamin D3) 50 50 mcg PO DAILY 12/29/20 12/02/22 History mcg (2,000 unit) capsule divalproex 500 mg tablet,extended 500 mg PO DAILY 12/29/20 12/02/22 History release 24 hr folic acid 400 mcg tablet 0.4 mg PO DAILY 12/29/20 12/02/22 History levothyroxine 50 mcg tablet 50 mcg PO DAILY 12/29/20 12/02/22 History (Euthyrox) metformin 500 mg tablet 500 mg PO BID 12/29/20 12/02/22 History venlafaxine 37.5 mg 37.5 mg PO DAILY 12/29/20 12/02/22 History capsule,extended release 24 hr fluticasone furoate 100 1 inh inhalation DAILY 09/17/21 12/02/22 History mcg-vilanterol 25 mcg/dose inhalation powder (Breo Ellipta) mecobalamin (vitamin B12) 10,000 10,000 mcg subcut .qm 09/17/21 12/02/22 History mcg solution for injection ondansetron 8 mg disintegrating 8 mg PO Q8H PRN nausea and 12/02/22 12/02/22 Rx tablet vomiting #14 tabs nirmatrelvir 300 mg (150 mg See Rx Instructions PO .COMPLEX 02/26/23 Rx x2)-ritonavir 100 mg tablet,dose #30 ea pack (Paxlovid) lorazepam 0.5 mg tablet 0.5 mg PO BID PRN anxiety #14 tabs 06/24/23 Rx acetaminophen 500 mg capsule 1,000 mg (2 x 500 mg) PO Q6H PRN 10/08/24 Rx pain #30 caps ciprofloxacin HCl 500 mg tablet 500 mg PO Q12H 10 days #19 tabs 10/08/24 Rx (Cipro) ibuprofen 600 mg tablet 600 mg PO TID PRN pain #30 tabs 10/08/24 Rx metronidazole 500 mg tablet 500 mg PO Q6H 10 days #39 tabs 10/08/24 Rx ondansetron 4 mg disintegrating 4 mg PO Q8H PRN nausea and 10/08/24 Rx tablet vomiting #7 tabs oxycodone 5 mg capsule 5 mg PO Q8H PRN pain #7 caps 10/08/24 Rx Allergies Allergy/AdvReac Type Severity Reaction Status Date / Time No Known Allergies Allergy Verified 10/08/24 11:20 Vital Signs Vital Signs - 24 hr 10/14/24 10:43 10/14/24 12:30 10/14/24 13:07 Temperature 97.8 F 97.8 F Pulse Rate 125 H 80 82 Respiratory Rate 17 18 16 Blood Pressure 171/83 H 119/54 L 108/61 Pulse Oximetry 98 100 100 Oxygen Delivery Room Air 10/14/24 14:00 10/14/24 15:00 10/14/24 15:45 Temperature 97.8 F 97.6 F 97.6 F Pulse Rate 84 84 84 Respiratory Rate 18 16 16 Blood Pressure 118/70 112/68 112/64 Pulse Oximetry 98 98 97 Oxygen Delivery Exam 2 Const: General: comfortable and no acute distress Nutritional Appearance: o verweight Orientation/consciousness: patient oriented x3 HENMT: Head: normocephalic and atraumatic Ears: hearing grossly normal bilaterally Mouth: Yes moist mucous membranes Eyes: General: appearance normal, both eyes and all related structures P upils: Equal, round and reactive pupils present Neck: Neck: normal visual inspection and full ROM Resp: Effort & Inspection: no respiratory distress Auscultation: clear to auscultation bilaterally Cardio: Rate: regular rate Rhythm: regular rhythm Peripheral pulses: P eripheral pulses 2+ throughout GI: Inspection: distended and no visible herniation GI Palp: Yes Soft to palpation, Yes Tenderness to palpation present (GI) (RLQ and suprapubic area, mild tenderness), No Guarding due to palpation present (GI), Yes No hepatosplenomegaly present and No Rebound tenderness present Auscultation: H ypoactive bowel sounds present Skin: General skin exam: normal color Neuro: General: moves all extremities and no focal motor deficits Speech: n ormal speech Motor exam (neuro): 5/5 motor strength present throughout Extrem: General: normal to inspection and no edema Psych: Mental Status: mental status grossly normal Attitude: cooperative Insight: Good insight present (Psych) Judgement: Good judgement present (Psych) Results Labs 10/14/24 12:15 10/14/24 12:15 Labs: Abnormal lab results 10/14/24 Range/Units 12:15 Urine Appearance Cloudy H (Clear) Urine Ketones Trace H (Negative) mg/dL Leukocyte Esterase Rfl Trace H (Negative) ANITA/UL Urine RBC 6-10 H (0-2) /hpf Diabetes panel 10/14/24 Range/Units 12:15 Sodium 139 (137-145) mmol/L Potassium 4.6 (3.4-5.0) mmol/L Chloride 106 (98-107) mmol/L Carbon Dioxide 24 (22-30) mmol/L BUN 9 (7-17) mg/dL Creatinine 0.77 (0.7-1.0) mg/dL Glucose 89 (65-110) mg/dL Calcium 9.4 (8.4-10.2) mg/dL AST 30 (14-36) U/L ALT 19 (6-35) U/L Alkaline Phosphatase 59 (38-126) U/L Total Protein 8.0 (6.3-8.2) g/dL Albumin 4.1 (3.5-5.1) g/dL Calcium panel 10/14/24 Range/Units 12:15 Calcium 9.4 (8.4-10.2) mg/dL Albumin 4.1 (3.5-5.1) g/dL Pituitary panel 10/14/24 Range/Units 12:15 Sodium 139 (137-145) mmol/L Potassium 4.6 (3.4-5.0) mmol/L Chloride 106 (98-107) mmol/L Carbon Dioxide 24 (22-30) mmol/L BUN 9 (7-17) mg/dL Creatinine 0.77 (0.7-1.0) mg/dL Glucose 89 (65-110) mg/dL Calcium 9.4 (8.4-10.2) mg/dL Adrenal panel 10/14/24 Range/Units 12:15 Sodium 139 (137-145) mmol/L Potassium 4.6 (3.4-5.0) mmol/L Chloride 106 (98-107) mmol/L Carbon Dioxide 24 (22-30) mmol/L BUN 9 (7-17) mg/dL Creatinine 0.77 (0.7-1.0) mg/dL Glucose 89 (65-110) mg/dL Calcium 9.4 (8.4-10.2) mg/dL Total Bilirubin 0.4 (0.2-1.3) mg/dL AST 30 (14-36) U/L ALT 19 (6-35) U/L Alkaline Phosphatase 59 (38-126) U/L Total Protein 8.0 (6.3-8.2) g/dL Albumin 4.1 (3.5-5.1) g/dL All other labs normal. Imaging Additional studies: ITS Impressions Abdomen/Pelvis CT 10/14/24 13:32 IMPRESSION: Interval progression of sigmoid diverticulitis now with a contained perforation. No drainable fluid collection or gross free air.
--- NOTE | 2024-10-14 16:10 | ADMGEN ---
This patient, Brie Neal, was admitted to 2 Medical Room 249-01. Patient/family oriented to hospital policies and general routines including ID bracelet, bed and alarms, visiting hours, pain management, procedures, bathroom and other care routines, personal items, smoking policy, room service/diet, and visiting hours. Information on how to activate the Rapid Response Team has been discussed. Patient/Family are encouraged to report perceived risks to care and to ask questions if they do not understand what they are told or what they should do.
--- NOTE | 2024-10-14 16:30 | P.HP_ITS ---
[facility] Past Medical History Medical History History of ovarian cyst History of IBS Stage 2 chronic kidney disease Asthma Diabetes Hypothyroidism DDD (degenerative disc disease) Upper respiratory infection Bipolar affect, depressed HTN (hypertension) Bipolar disorder Surgical History Surgical History History of section Family History Family History Father Alcohol abuse Hypertension Cerebrovascular accident Acute myocardial infarction Mother Alcohol abuse Asthma Son Non-Hodgkins lymphoma Grandparent Lung cancer non-smoker Grandparent Stomach cancer Other No active medical problems Social History Social History Smoking packs per day: 0.5 Smoking cigarettes per day: 10.0 Years smoked: 38 Smoking pack-years: 19.00 Smoking status: Current some day smoker Tobacco type: cigarettes Second hand tobacco smoke exposure: Yes Alcohol intake: never Substance use: current Substance use type: marijuana Other substance usage details: daily Lack of Transportation: No Lack of Food: Never True Current Housing: I Have Housing Concerned About Future Housing: No Difficulty Paying Gas/Electric Bills: No Difficulty Paying for Meds: No Currently Unemployed: Decline to Answer Education: High School Diploma/GED Living arrangements: with family Occupation/Education: unemployed Gender identity (if verbalized by the patient): Female Spiritual care concerns: No Agree to blood products: Yes Meds Home Medications and Allergies Home Medications ?Medication ?Instructions ?Recorded ?Confirmed ?Type buspirone 10 mg tablet 10 mg PO DAILY 05/06/20 12/02/22 History cariprazine 6 mg capsule (Vraylar) 6 mg PO DAILY 05/06/20 12/02/22 History atorvastatin 20 mg tablet 20 mg PO QHS 12/29/20 12/02/22 History calcium carbonate (Calcium 600) 600 mg PO DAILY 12/29/20 12/02/22 History cholecalciferol (vitamin D3) 50 50 mcg PO DAILY 12/29/20 12/02/22 History mcg (2,000 unit) capsule divalproex 500 mg tablet,extended 500 mg PO DAILY 12/29/20 12/02/22 History release 24 hr folic acid 400 mcg tablet 0.4 mg PO DAILY 12/29/20 12/02/22 History levothyroxine 50 mcg tablet 50 mcg PO DAILY 12/29/20 12/02/22 History (Euthyrox) metformin 500 mg tablet 500 mg PO BID 12/29/20 12/02/22 History venlafaxine 37.5 mg 37.5 mg PO DAILY 12/29/20 12/02/22 History capsule,extended release 24 hr fluticasone furoate 100 1 inh inhalation DAILY 09/17/21 12/02/22 History mcg-vilanterol 25 mcg/dose inhalation powder (Breo Ellipta) mecobalamin (vitamin B12) 10,000 10,000 mcg subcut .qm 09/17/21 12/02/22 History mcg solution for injection ondansetron 8 mg disintegrating 8 mg PO Q8H PRN nausea and 12/02/22 12/02/22 Rx tablet vomiting #14 tabs nirmatrelvir 300 mg (150 mg See Rx Instructions PO .COMPLEX 02/26/23 Rx x2)-ritonavir 100 mg tablet,dose #30 ea pack (Paxlovid) lorazepam 0.5 mg tablet 0.5 mg PO BID PRN anxiety #14 tabs 06/24/23 Rx acetaminophen 500 mg capsule 1,000 mg (2 x 500 mg) PO Q6H PRN 10/08/24 Rx pain #30 caps ciprofloxacin HCl 500 mg tablet 500 mg PO Q12H 10 days #19 tabs 10/08/24 Rx (Cipro) ibuprofen 600 mg tablet 600 mg PO TID PRN pain #30 tabs 10/08/24 Rx metronidazole 500 mg tablet 500 mg PO Q6H 10 days #39 tabs 10/08/24 Rx ondansetron 4 mg disintegrating 4 mg PO Q8H PRN nausea and 10/08/24 Rx tablet vomiting #7 tabs oxycodone 5 mg capsule 5 mg PO Q8H PRN pain #7 caps 10/08/24 Rx Allergies Allergy/AdvReac Type Severity Reaction Status Date / Time No Known Allergies Allergy Verified 10/08/24 11:20 Vital Signs Vital Signs - 24 hr 10/14/24 10:43 10/14/24 12:30 10/14/24 13:07 Temperature 97.8 F 97.8 F Pulse Rate 125 H 80 82 Respiratory Rate 17 18 16 Blood Pressure 171/83 H 119/54 L 108/61 Pulse Oximetry 98 100 100 Oxygen Delivery Room Air 10/14/24 14:00 10/14/24 15:00 10/14/24 15:45 Temperature 97.8 F 97.6 F 97.6 F Pulse Rate 84 84 84 Respiratory Rate 18 16 16 Blood Pressure 118/70 112/68 112/64 Pulse Oximetry 98 98 97 Oxygen Delivery H&P: Results Labs Labs: Short CBC 10/14/24 Range/Units 12:15 WBC 6.1 (4.5-10.0) K/mm3 Hgb 14.5 (12.0-15.0) g/dL Hct 44.3 (37.0-47.0) % Plt Count 341 (150-375) k/mm3 BMP 10/14/24 12:15 Sodium 139 Potassium 4.6 Chloride 106 Carbon Dioxide 24 BUN 9 Creatinine 0.77 Glucose 89 Calcium 9.4 Liver Function 10/14/24 Range/Units 12:15 Total Bilirubin 0.4 (0.2-1.3) mg/dL AST 30 (14-36) U/L ALT 19 (6-35) U/L Alkaline Phosphatase 59 (38-126) U/L Albumin 4.1 (3.5-5.1) g/dL Urine 10/14/24 Range/Units 12:15 Urine Color Dark yellow (Yellow) Urine Appearance Cloudy H (Clear) Urine pH 6.0 (5.0-9.0) Ur Specific [place] 1.021 (1.001-1.035) Urine Protein Negative (Negative) mg/dL Urine Glucose (UA) Negative (Negative) mg/dL
[2024-10-14] MEDS: SODIUM CHLORIDE 0.9% IV 1,000 ML 60 ML IV CONT (16:39)
--- NOTE | 2024-10-14 19:35 | P.HP_ITS ---
H&P: HPI History of Present Illness Date/Time: 10/14/24 19:35 Chief Complaint: Abdominal pain. Narrative: This is a pleasant 53-year-old female smoker with history of section, ovarian cysts, irritable bowel syndrome, hypertension, chronic kidney disease stage 2, chronic obstructive pulmonary disease, hypothyroidism, and bipolar disorder who presented to the emergency department with complaints of abdominal pain. She was seen in the ED on 10/08/2024 for evaluation of right-sided abdominal pain and distension associated with decreased appetite, nausea, and chills. CT scan at that time showed wall thickening and surrounding inflammatory stranding of the sigmoid colon, likely diverticulitis and she was discharged home with prescriptions for ciprofloxacin and metronidazole. She has been taking her medications as prescribed initially thought she was improving however over the last few days her pain has intensified and at settled more so in the right lower quadrant. She also reports poor appetite, nausea, and liquid stools. She denies fever, chest pain, shortness of breath, vomiting, melena, hematochezia, dysuria, and hematuria. In the ED: Vital signs on arrival include temperature 97.8?, blood pressure 171/83, pulse 125, respiratory rate 17, SpO2 98% on room air. CMP and CBC were unremarkable. Urinalysis was positive for trace ketones, trace leukocyte esterase, and 6 to [address] of the abdomen pelvis showed interval progression of sigmoid diverticulitis now with a contained perforation. She was started on Zosyn and is being admitted in this setting for further treatment and surgery consultation. Review of Systems Review of Systems: 12 systems were reviewed and are negativ e except for as per HPI. [facility] Past Medical History Medical History (Updated 10/14/24 @ 22:30 by Alejandrina Willard PA-C) Depression with anxiety Tobacco dependence Chronic obstructive pulmonary disease Degenerative disc disease Type 2 diabetes mellitus Hypertension Irritable bowel syndrome Ovarian cyst Stage 2 chronic kidney disease Asthma Hypothyroidism Bipolar disorder Surgical History Surgical History (Updated 10/14/24 @ 22:30 by Alejandrina Willard PA-C) History of bilateral carpal tunnel release History of section Family History Family History Father Alcohol abuse Hypertension Cerebrovascular accident Acute myocardial infarction Mother Alcohol abuse Asthma Son Non-Hodgkins lymphoma Grandparent Lung cancer non-smoker Grandparent Stomach cancer Other No active medical problems Social History Social History (Updated 10/14/24 @ 22:30 by Alejandrina Willard PA-C) Social History: Surrogate medical decision maker: Liliana Neal, daughter. Code status: Full code. Smoking packs per day: 0.5 Smoking cigarettes per day: 10.0 Years smoked: 40 Smoking pack-years: 20.00 Smoking status: Current every day smoker Tobacco type: cigarettes Second hand tobacco smoke exposure: Yes Alcohol intake: never Substance use: never Substance use type: marijuana Other substance usage details: daily Do You Feel Safe in your Home?: Yes Lack of Transportation: No Lack of Food: Never True Current Housing: I Have Housing Concerned About Future Housing: No Difficulty Paying Gas/Electric Bills: YES Difficulty Paying for Meds: No Currently Unemployed: YES Education: High School Diploma/GED Difficulty w/ Childcare or Family Care: No Living arrangements: with family Occupation/Education: unemployed Spiritual care concerns: No Agree to blood products: Yes Meds Home Medications and Allergies Home Medications ?Medication ?Instructions ?Recorded ?Confirmed ?Type buspirone 10 mg tablet 10 mg PO DAILY 05/06/20 10/14/24 History cariprazine 6 mg capsule (Vraylar) 6 mg PO DAILY 05/06/20 10/14/24 History atorvastatin 20 mg tablet 20 mg PO QHS 12/29/20 10/14/24 History calcium carbonate (Calcium 600) 600 mg PO DAILY 12/29/20 10/14/24 History cholecalciferol (vitamin D3) 50 50 mcg PO DAILY 12/29/20 10/14/24 History mcg (2,000 unit) capsule divalproex 500 mg tablet,extended 500 mg PO DAILY 12/29/20 10/14/24 History release 24 hr folic acid 400 mcg tablet 0.4 mg PO DAILY 12/29/20 10/14/24 History levothyroxine 50 mcg tablet 50 mcg PO DAILY 12/29/20 10/14/24 History (Euthyrox) metformin 500 mg tablet 500 mg PO BID 12/29/20 10/14/24 History venlafaxine 37.5 mg 37.5 mg PO DAILY 12/29/20 10/14/24 History capsule,extended release 24 hr fluticasone furoate 100 1 inh inhalation DAILY 09/17/21 10/14/24 History mcg-vilanterol 25 mcg/dose inhalation powder (Breo Ellipta) mecobalamin (vitamin B12) 10,000 10,000 mcg subcut .qm 09/17/21 10/14/24 History mcg solution for injection ondansetron 8 mg disintegrating 8 mg PO Q8H PRN nausea and 12/02/22 10/14/24 Rx tablet vomiting #14 tabs lorazepam 0.5 mg tablet 0.5 mg PO BID PRN anxiety #14 tabs 06/24/23 10/14/24 Rx acetaminophen 500 mg capsule 1,000 mg (2 x 500 mg) PO Q6H PRN 10/08/24 10/14/24 Rx pain #30 caps ibuprofen 600 mg tablet 600 mg PO TID PRN pain #30 tabs 10/08/24 10/14/24 Rx metronidazole 500 mg tablet 500 mg PO Q6H 10 days #39 tabs 10/08/24 10/14/24 Rx ondansetron 4 mg disintegrating 4 mg PO Q8H PRN nausea and 10/08/24 10/14/24 Rx tablet vomiting #7 tabs oxycodone 5 mg capsule 5 mg PO Q8H PRN pain #7 caps 10/08/24 10/14/24 Rx Allergies Allergy/AdvReac Type Severity Reaction Status Date / Time No Known Allergies Allergy Verified 10/08/24 11:20 Vital Signs Vital Signs - 24 hr 10/14/24 10:43 10/14/24 12:30 10/14/24 13:07 Temperature 97.8 F 97.8 F Pulse Rate 125 H 80 82 Respiratory Rate 17 18 16 Blood Pressure 171/83 H 119/54 L 108/61 Pulse Oximetry 98 100 100 Oxygen Delivery Room Air 10/14/24 14:00 10/14/24 15:00 10/14/24 15:45 Temperature 97.8 F 97.6 F 97.6 F Pulse Rate 84 84 84 Respiratory Rate 18 16 16 Blood Pressure 118/70 112/68 112/64 Pulse Oximetry 98 98 97 Oxygen Delivery 10/14/24 16:10 Temperature 97.6 F Pulse Rate 78 Respiratory Rate 16 Blood Pressure 138/77 Pulse Oximetry 98 Oxygen Delivery Exam Narrative: General: Nontoxic-appearing female supine in bed in mild pain. Weight: 9.2 kg. BMI: 34.3. HEENT: PERRL, EOMI. Sclera anicteric. Tacky mucous membranes. Neck: Supple. Respiratory: Lungs are clear to auscultation bilaterally. Cardiovascular: Regular rate and rhythm with S1-S2. Gastrointestinal: Abdomen is slightly distended with positive bowel sounds. She is tender to palpation in the lower abdomen, more so right of center. No guarding or rebound tenderness. Skin: Warm and dry. Extremities: No cyanosis, clubbing, or edema. Radial and pedal pulses intact. Neurological: Alert. Cranial nerves 2-12 are grossly intact. No gross focal deficits to casual conversation. Psychiatric: Pleasant and cooperative with normal mood and affect. Judgment and insight intact. H&P: Results Labs Labs: Short CBC 10/14/24 Range/Units 12:15 WBC 6.1 (4.5-10.0) K/mm3 Hgb 14.5 (12.0-15.0) g/dL Hct 44.3 (37.0-47.0) % Plt Count 341 (150-375) k/mm3 BMP 10/14/24 12:15 Sodium 139 Potassium 4.6 Chloride 106 Carbon Dioxide 24 BUN 9 Creatinine 0.77 Glucose 89 Calcium 9.4 Liver Function 10/14/24 Range/Units 12:15 Total Bilirubin 0.4 (0.2-1.3) mg/dL AST 30 (14-36) U/L ALT 19 (6-35) U/L Alkaline Phosphatase 59 (38-126) U/L Albumin 4.1 (3.5-5.1) g/dL Urine 10/14/24 Range/Units 12:15 Urine Color Dark yellow (Yellow) Urine Appearance Cloudy H (Clear) Urine pH 6.0 (5.0-9.0) Ur Specific [place] 1.021 (1.001-1.035) Urine Protein Negative (Negative) mg/dL Urine Glucose (UA) Negative (Negative) mg/dL Impaging Abdomen/Pelvis CT 10/14/24 13:32 IMPRESSION: Interval progression of sigmoid diverticulitis now with a contained perforation. No drainable fluid collection or gross free air. Assessment and Plan Assessment and plan (1) Diverticulitis of colon with perforation: Code(s): K57.20 - Diverticulitis of large intestine with perforation and abscess without bleeding Status: Acute (2) Hypertension: Code(s): I10 - Essential (primary) hypertension Status: Acute (3) Type 2 diabetes mellitus: Code(s): E11.9 - Type 2 diabetes mellitus without complications Status: Acute (4) Hypothyroidism: Qualifiers: Hypothyroidism type: other Qualified Code(s): E03.8 - Other specified hypothyroidism Code(s): E03.9 - Hypothyroidism, unspecified Status: Acute (5) Chronic obstructive pulmonary disease: Code(s): J44.9 - Chronic obstructive pulmonary disease, unspecified Status: Acute (6) Tobacco dependence: Code(s): F17.200 - Nicotine dependence, unspecified, uncomplicated Status: Acute Plan The patient presented to the emergency department with complaints of worsening abdominal pain since being diagnosed with diverticulitis as detailed in HPI. Labs, imaging, EKG, and all reports were personally reviewed. CT scan today showed interval progression of sigmoid diverticulitis with a now contained perforation. She has been started on piperacillin-tazobactam. Surgery has been consulted for recommendations and they are allowing the patient to have clear liquids tonight to see how she does. Continue serial abdominal examinations. Her vital signs are stable. Initiate sliding scale insulin, Accu-Cheks, and hypoglycemic protocol. No acute issues with regards to COPD. Smoking cessation is encouraged and was discussed. She declines the need for nicotine patch. Patient tells me that she stopped taking all of her medications at home because she was having issues with nausea. Findings and treatment plan were discussed with the patient. Questions were solicited and answered to satisfaction. The patient's medical management will be taken over by the hospitalist team in a.m. Quality VTE Prophylaxis VTE prophylaxis: pharmacologic ordered The patient has been admitted under observation status. Hospitalist [facility] Advance Care Plan I have confirmed that the patient's Advanced Care Plan is present, code status is documented, or surrogate decision maker is listed in patient medical record.: Yes Medication Reconciliation I have utilized all available resources to obtain, update and review the patients current medications (includes all prescriptions, OTC, herbals, cannabis, and nutritional supplements).: Yes
[2024-10-14] MEDS: ONDANSETRON INJ 4 MG/2 ML VIAL IV PUSH (19:41)
[2024-10-15] MEDS: PIPERACILLN/TAZ 3.375GM/NS50ML 3.375 GM/50 ML BAG IVPB ×4 (03:00→20:51)
[2024-10-15] MEDS: MORPHINE SULFATE (*CRX) 4 MG/ML INJ IV PUSH (05:02)
--- NOTE | 2024-10-15 05:31 | PC.NURSE ---
COMPUTER DOWNTIME FROM 1-5:15
[2024-10-15 05:35] VITALS: BP 138/88; PULSE 85; RESP 18; TEMP 36.6; O2SAT 93
[2024-10-15 06:06] LABS: Hemoglobin 12.8 g/dL (12.0-15.0); Mean Corpuscular Hemoglobin 29.3 pg (26-34); Mean Corpuscular Volume 91.5 fl (80-100); Mean Platelet Volume 10.1 fl (7.4-10.4); Platelet Count Result 294 k/mm3 (150-375); Red Blood Count 4.37 M/mm3 (4.2-5.4); White Blood Count 5.7 K/mm3 (4.5-10.0)
[2024-10-15 06:16] LABS: Anion Gap 5 mmol/L (4-12); Blood Urea Nitrogen 5 mg/dL (7-17); Calcium 8.4 mg/dL (8.4-10.2); Carbon Dioxide 26 mmol/L (22-30); Chloride 107 mmol/L (98-107); Estimated CRCL calculation 71 ml/min; Estimated Glomerular Filt Rate 60; Glucose 94 mg/dL (65-110); Potassium 4.2 mmol/L (3.4-5.0); Sodium 138 mmol/L (137-145)
[2024-10-15 06:57] LABS: Band Neutrophils Percent 0 % (0-6); Eosinophils Absolute Manual 0.11 K/mm3 (0.02-0.50); Eosinophils Percent Manual 2 % (0-4); Lymphocytes Absolute Manual 2.67 K/mm3 (1.1-4.5); Lymphocytes Percent Manual 47 % (18-44); Monocytes Absolute Manual 0.34 K/mm3 (0.1-0.90); Monocytes Percent Manual 6 % (3-9); Neutrophils Absolute Manual 2.56 K/mm3 (1.7-7.2); Neutrophils Percent Manual 45 % (46-73); Platelet Estimate Adequate (Adequate); Total Cells Counted 100
[2024-10-15 06:58] LABS: Burr Cells 1+; Schistocytes None Seen
[2024-10-15 08:03] LABS: Glucose Point of Care 94 mg/dl (65-105)
[2024-10-15] MEDS: ENOXAPARIN 40 MG/0.4 ML SYRINGE SUB-Q (08:20)
[2024-10-15] MEDS: SODIUM CHLORIDE 0.9% IV 1,000 ML 60 ML IV CONT (08:20)
[2024-10-15 08:34] VITALS: O2SAT 96
--- NOTE | 2024-10-15 10:55 | P.PNGS_ITS ---
Progress Note: A&P Assessment and Plan (1) Diverticulitis of colon with perforation: Code(s): K57.20 - Diverticulitis of large intestine with perforation and abscess without bleeding Status: Acute Assessment and Plan: exam largely benign, cont IV abx, will advance to low fiber diet Subjective Subjective Date/Time Seen: 10/15/24 10:55 Interval history: feels ok, still c RLQ, suprapubic pain, alejandra clears, +loose stools Review of Systems Review of Systems: All systems reviewed & are unremarkable except as noted in HPI and below Exam Const: General: cooperative, comfortable and no acute distress Resp: Auscultation: clear to auscultation bilaterally Cardio: Rate: regular rate Rhythm: regular rhythm GI: Inspection: normal to inspection and distended GI Palp: Yes abdominal tenderness, Yes Soft to palpation, No Guarding due to palpation present (GI) and No Rigid due to palpation Objective Data Vital Signs Vital Signs: Vital Signs - 24 hr 10/14/24 12:30 10/14/24 13:07 10/14/24 14:00 Temperature 36.6 C 36.6 C Pulse Rate 80 82 84 Respiratory Rate 18 16 18 Blood Pressure 119/54 L 108/61 118/70 Pulse Oximetry 100 100 98 Oxygen Delivery Fraction of Inspired Oxygen 10/14/24 15:00 10/14/24 15:45 10/14/24 16:10 Temperature 36.4 C 36.4 C 36.4 C Pulse Rate 84 84 78 Respiratory Rate 16 16 16 Blood Pressure 112/68 112/64 138/77 Pulse Oximetry 98 97 98 Oxygen Delivery Fraction of Inspired Oxygen 10/14/24 20:53 10/15/24 05:35 10/15/24 08:20 Temperature 36.6 C 36.6 C Pulse Rate 62 85 Respiratory Rate 14 18 Blood Pressure 100/57 L 138/88 Pulse Oximetry 100 93 Oxygen Delivery Room Air Fraction of Inspired Oxygen 10/15/24 08:34 Temperature Pulse Rate Respiratory Rate Blood Pressure Pulse Oximetry 96 Oxygen Delivery Room Air Fraction of Inspired Oxygen 21 Intake/Output Intake/Output: Intake & Output 10/12/24 10/13/24 10/14/24 10/15/24 23:59 23:59 23:59 23:59 Intake Total 2125 2019 Balance 2125 2019 Meds/Results Medications: Active Medications Generic Name Dose Route Start Last Admin Trade Name Freq PRN Reason Stop Dose Admin Acetaminophen 650 mg 10/14/24 22:33 Acetaminophen 325 Mg Tablet PO Q6H PRN Mild Pain (1-3) or Fever Dextrose 12.5 gm 10/14/24 22:33 Dextrose 50% 25 Gm/50 Ml Syringe IV PUSH PRN PRN Hypoglycemia Protocol Enoxaparin Sodium 40 mg 10/15/24 09:00 10/15/24 08:20 Enoxaparin 40 Mg/0.4 Ml Syringe SUB-Q 40 mg DAILY CHENG Administration Glucagon 1 mg 10/14/24 22:33 Glucagon For Inj 1 Mg Vial IM PRN PRN Hypoglycemia Protocol Glucose 15 gm 10/14/24 22:33 Glucose Oral Gel 15 Gm Of Glucse In 37.5 Gm Tube PO PRN PRN Hypoglycemia Protocol Piperacillin/Tazobactam/Dextrose 3.375 gm in 50 mls @ 100 mls/hr 10/14/24 21:00 10/15/24 08:50 Zosyn 3.375 Gm/Ns 50 Ml IVPB Infused Q6H CHENG Infusion Sodium Chloride 1,000 mls @ 60 mls/hr 10/14/24 16:10 10/15/24 08:20 Normal Saline Iv IV CONT 60 mls/hr .[id number] CHENG Administration Dextrose 1,000 mls @ 100 mls/hr 10/14/24 22:33 Dextrose 5% 1,000 Ml IVPB PRN PRN Hypoglycemia Protocol Insulin Aspart 2 - 5 units 10/15/24 08:00 10/15/24 08:19 Insulin Aspart (*Bkc) 100 Units/Ml SUB-Q Not Given [facility] Protocol Insulin Aspart 1 - 2 units 10/15/24 21:00 Insulin Aspart (*Bkc) 100 Units/Ml SUB-Q [facility] Protocol Morphine Sulfate 4 mg 10/14/24 14:58 10/15/24 05:02 Morphine Sulfate (*Crx) 4 Mg/Ml Inj IV PUSH 4 mg Q2H PRN Administration Pain Rated 7-10 Ondansetron HCl 4 mg 10/14/24 14:58 10/14/24 19:41 Ondansetron Inj 4 Mg/2 Ml Vial IV PUSH 4 mg Q4H PRN Administration Nausea Radiology Results: ITS Impressions Abdomen/Pelvis CT 10/14/24 13:32 IMPRESSION: Interval progression of sigmoid diverticulitis now with a contained perforation. No drainable fluid collection or gross free air. Labs Labs: Laboratory Results - last 24 hr 10/14/24 10/14/24 10/14/24 12:15 12:19 15:07 WBC 6.1 RBC 4.89 Hgb 14.5 Hct 44.3 MCV 90.6 MCH 29.7 MCHC 32.7 RDW 13.7 Plt Count 341 MPV 10.3 Immature Gran % (Auto) 0.5 Neut % (Auto) 47.3 Lymph % (Auto) 42.0 Mcleod % (Auto) 7.7 Eos % (Auto) 1.5 Baso % (Auto) 1.0 Lymph # (Auto) 2.56 Mcleod # (Auto) 0.5 Eos # (Auto) 0.1 Baso # (Auto) 0.1 Abs Immat Gran (auto) 0.03 Absolute Neuts (auto) 2.9 Absolute Nucleated RBC 0.000 Total Counted Neutrophils % (Manual) Band Neutrophils % Lymphocytes % (Manual) Monocytes % (Manual) Eosinophils % (Manual) Nucleated RBC % 0.0 Abs Neuts (Manual) Abs Lymphs (Manual) Abs Monocytes (Manual) Absolute Eos (Manual) Platelet Estimate Carol Cells Schistocytes Sodium 139 Potassium 4.6 Chloride 106 Carbon Dioxide 24 Anion Gap 9 BUN 9 Creatinine 0.77 Estim Creat Clear Calc 87 Estimated GFR > 60 Glucose 89 POC Capillary Glucose Lactic Acid 1.3 Calcium 9.4 Magnesium Total Bilirubin 0.4 AST 30 ALT 19 Alkaline Phosphatase 59 Total Protein 8.0 Albumin 4.1 Lipase 76 Urine Color Dark yellow Urine Appearance Cloudy H Urine pH 6.0 Ur Specific [place] 1.021 Urine Protein Negative Urine Glucose (UA) Negative Urine Ketones Trace H Ur Blood (Man) Negative Urine Nitrate Negative Urine Bilirubin Negative Urine Urobilinogen 1.0 Add Ur Microanalysis Reviewed Leukocyte Esterase Rfl Trace H Urine RBC 6-10 H Urine WBC 0-5 Ur Squamous Epith Cells Few Urine Bacteria None seen Urine Casts 0-2 POC Urine HCG, Qual Negative 10/15/24 10/15/24 05:56 07:58 WBC 5.7 RBC 4.37 Hgb 12.8 Hct 40.0 MCV 91.5 MCH 29.3 MCHC 32.0 RDW 14.0 Plt Count 294 MPV 10.1 Immature Gran % (Auto) Not Reportable Neut % (Auto) Not Reportable Lymph % (Auto) Not Reportable Mcleod % (Auto) Not Reportable Eos % (Auto) Not Reportable Baso % (Auto) Not Reportable Lymph # (Auto) Not Reportable Mcleod # (Auto) Not Reportable Eos # (Auto) Not Reportable Baso # (Auto) Not Reportable Abs Immat Gran (auto) Not Reportable Absolute Neuts (auto) Not Reportable Absolute Nucleated RBC Not Reportable Total Counted 100 Neutrophils % (Manual) 45 L Band Neutrophils % 0 Lymphocytes % (Manual) 47 H Monocytes % (Manual) 6 Eosinophils % (Manual) 2 Nucleated RBC % Not Reportable Abs Neuts (Manual) 2.56 Abs Lymphs (Manual) 2.67 Abs Monocytes (Manual) 0.34 Absolute Eos (Manual) 0.11 Platelet Estimate Adequate Carol Cells 1+ Schistocytes None seen Sodium 138 Potassium 4.2 Chloride 107 Carbon Dioxide 26 Anion Gap 5 BUN 5 L Creatinine 0.96 Estim Creat Clear Calc 71 Estimated GFR 60 Glucose 94 POC Capillary Glucose 94 Lactic Acid Calcium 8.4 Magnesium 2.0 Total Bilirubin AST ALT Alkaline Phosphatase Total Protein Albumin Lipase Urine Color Urine Appearance Urine pH Ur Specific [place] Urine Protein Urine Glucose (UA) Urine Ketones Ur Blood (Man) Urine Nitrate Urine Bilirubin Urine Urobilinogen Add Ur Microanalysis Leukocyte Esterase Rfl Urine RBC Urine WBC Ur Squamous Epith Cells Urine Bacteria Urine Casts POC Urine HCG, Qual
[2024-10-15 10:57] LABS: Toxigenic C. Diff POSITIVE (NEGATIVE)
[2024-10-15 11:57] LABS: Glucose Point of Care 125 mg/dl (65-105)
[2024-10-15] MEDS: VANCOMYCIN HCL 125 MG ORAL CAPSULE PO ×3 (12:49→23:56)
[2024-10-15 14:00] VITALS: BP 121/60; PULSE 68; RESP 16; TEMP 36.8; O2SAT 100
--- NOTE | 2024-10-15 14:29 | PM.IMPN ---
Progress Note: A&P Assessment and Plan (1) Diverticulitis of colon with perforation: Code(s): K57.20 - Diverticulitis of large intestine with perforation and abscess without bleeding Status: Acute (2) Hypertension: Code(s): I10 - Essential (primary) hypertension Status: Acute (3) Type 2 diabetes mellitus: Code(s): E11.9 - Type 2 diabetes mellitus without complications Status: Acute (4) Hypothyroidism: Qualifiers: Hypothyroidism type: other Qualified Code(s): E03.8 - Other specified hypothyroidism Code(s): E03.9 - Hypothyroidism, unspecified Status: Acute (5) Chronic obstructive pulmonary disease: Code(s): J44.9 - Chronic obstructive pulmonary disease, unspecified Status: Acute (6) Tobacco dependence: Code(s): F17.200 - Nicotine dependence, unspecified, uncomplicated Status: Acute Plan This is a pleasant 53-year-old female smoker with history of section, ovarian cysts, irritable bowel syndrome, hypertension, chronic kidney disease stage 2, chronic obstructive pulmonary disease, hypothyroidism, and bipolar disorder who presented to the emergency department with complaints of abdominal pain. She was seen in the ED on 10/08/2024 for evaluation of right-sided abdominal pain and distension associated with decreased appetite, nausea, and chills. CT scan at that time showed wall thickening and surrounding inflammatory stranding of the sigmoid colon, likely diverticulitis and she was discharged home with prescriptions for ciprofloxacin and metronidazole. She has been taking her medications as prescribed initially thought she was improving however over the last few days her pain has intensified and at settled more so in the right lower quadrant. She also reports poor appetite, nausea, and liquid stools. She denies fever, chest pain, shortness of breath, vomiting, melena, hematochezia, dysuria, and hematuria. In the ED: Vital signs on arrival include temperature 97.8?, blood pressure 171/83, pulse 125, respiratory rate 17, SpO2 98% on room air. CMP and CBC were unremarkable. Urinalysis was positive for trace ketones, trace leukocyte esterase, and 6 to [address] of the abdomen pelvis showed interval progression of sigmoid diverticulitis now with a contained perforation. She was started on Zosyn and is being admitted in this setting for further treatment and surgery consultation. Sigmoid diverticulitis with contained perforation. On IV Zosyn. General surgery consulted History ovarian cyst Irritable bowel syndrome Hypertension CKD stage 2 COPD Hypothyroidism Bipolar disorder C diff came back positive start vancomycin oral DVT prophylaxis Subjective Date/time seen: 10/15/24 14:29 Interval history: Complains of right groin pain. Feels abdomen is bloated. No nausea vomiting. Review of Systems Review of Systems: All systems reviewed & are unremarkable except as noted in HPI and below Exam Narrative: General: Nontoxic-appearing female supine in bed not in acute distress HEENT: PERRL, EOMI. Sclera anicteric. Tacky mucous membranes. Neck: Supple. Respiratory: Lungs are clear to auscultation bilaterally. Cardiovascular: Regular rate and rhythm with S1-S2. Gastrointestinal: Abdomen is slightly distended with positive bowel sounds. She is tender to palpation in the right lower quadrant Skin: Warm and dry. Extremities: No cyanosis, clubbing, or edema. Radial and pedal pulses intact. Neurological: Alert. Cranial nerves 2-12 are grossly intact. No gross focal deficits to casual conversation. Psychiatric: Pleasant and cooperative with normal mood and affect. Judgment and insight intact. Objective Data Vital Signs Vital Signs: Vital Signs - 24 hr 10/14/24 15:00 10/14/24 15:45 10/14/24 16:10 Temperature 97.6 F 97.6 F 97.6 F Pulse Rate 84 84 78 Respiratory Rate 16 16 16 Blood Pressure 112/68 112/64 138/77 Pulse Oximetry 98 97 98 Oxygen Delivery Fraction of Inspired Oxygen 10/14/24 20:53 10/15/24 05:35 10/15/24 08:20 Temperature 97.8 F 97.8 F Pulse Rate 62 85 Respiratory Rate 14 18 Blood Pressure 100/57 L 138/88 Pulse Oximetry 100 93 Oxygen Delivery Room Air Fraction of Inspired Oxygen 10/15/24 08:34 Temperature Pulse Rate Respiratory Rate Blood Pressure Pulse Oximetry 96 Oxygen Delivery Room Air Fraction of Inspired Oxygen 21 Intake/Output Intake/Output: Intake & Output 10/12/24 10/13/24 10/14/24 10/15/24 23:59 23:59 23:59 23:59 Intake Total 2125 2019 Balance 2125 2019 Meds/Results Medications: Active Medications Generic Name Dose Route Start Last Admin Trade Name Freq PRN Reason Stop Dose Admin Acetaminophen 650 mg 10/14/24 22:33 Acetaminophen 325 Mg Tablet PO Q6H PRN Mild Pain (1-3) or Fever Dextrose 12.5 gm 10/14/24 22:33 Dextrose 50% 25 Gm/50 Ml Syringe IV PUSH PRN PRN Hypoglycemia Protocol Enoxaparin Sodium 40 mg 10/15/24 09:00 10/15/24 08:20 Enoxaparin 40 Mg/0.4 Ml Syringe SUB-Q 40 mg DAILY CHENG Administration Glucagon 1 mg 10/14/24 22:33 Glucagon For Inj 1 Mg Vial IM PRN PRN Hypoglycemia Protocol Glucose 15 gm 10/14/24 22:33 Glucose Oral Gel 15 Gm Of Glucse In 37.5 Gm Tube PO PRN PRN Hypoglycemia Protocol Piperacillin/Tazobactam/Dextrose 3.375 gm in 50 mls @ 100 mls/hr 10/14/24 21:00 10/15/24 08:50 Zosyn 3.375 Gm/Ns 50 Ml IVPB Infused Q6H CHENG Infusion Sodium Chloride 1,000 mls @ 60 mls/hr 10/14/24 16:10 10/15/24 08:20 Normal Saline Iv IV CONT 60 mls/hr .[id number] CHENG Administration Dextrose 1,000 mls @ 100 mls/hr 10/14/24 22:33 Dextrose 5% 1,000 Ml IVPB PRN PRN Hypoglycemia Protocol Insulin Aspart 2 - 5 units 10/15/24 08:00 10/15/24 12:10 Insulin Aspart (*Bkc) 100 Units/Ml SUB-Q Not Given TIDWM [facility] Protocol Insulin Aspart 1 - 2 units 10/15/24 21:00 Insulin Aspart (*Bkc) 100 Units/Ml SUB-Q HS [facility] Protocol Morphine Sulfate 4 mg 10/14/24 14:58 10/15/24 05:02 Morphine Sulfate (*Crx) 4 Mg/Ml Inj IV PUSH 4 mg Q2H PRN Administration Pain Rated 7-10 Ondansetron HCl 4 mg 10/14/24 14:58 10/14/24 19:41 Ondansetron Inj 4 Mg/2 Ml Vial IV PUSH 4 mg Q4H PRN Administration Nausea Vancomycin HCl 125 mg 10/15/24 12:00 10/15/24 12:49 Vancomycin Hcl 125 Mg Oral Capsule PO 10/25/24 11:59 125 mg Q6HR CHENG Administration Radiology Results: ITS Impressions Abdomen/Pelvis CT 10/14/24 13:32 IMPRESSION: Interval progression of sigmoid diverticulitis now with a contained perforation. No drainable fluid collection or gross free air. Labs Labs: Laboratory Results - last 24 hr 10/14/24 10/15/24 10/15/24 15:07 05:56 07:58 WBC 5.7 RBC 4.37 Hgb 12.8 Hct 40.0 MCV 91.5 MCH 29.3 MCHC 32.0 RDW 14.0 Plt Count 294 MPV 10.1 Immature Gran % (Auto) Not Reportable Neut % (Auto) Not Reportable Lymph % (Auto) Not Reportable [place] % (Auto) Not Reportable Eos % (Auto) Not Reportable Baso % (Auto) Not Reportable Lymph # (Auto) Not Reportable [place] # (Auto) Not Reportable Eos # (Auto) Not Reportable Baso # (Auto) Not Reportable Abs Immat Gran (auto) Not Reportable Absolute Neuts (auto) Not Reportable Absolute Nucleated RBC Not Reportable Total Counted 100 Neutrophils % (Manual) 45 L Band Neutrophils % 0 Lymphocytes % (Manual) 47 H Monocytes % (Manual) 6 Eosinophils % (Manual) 2 Nucleated RBC % Not Reportable Abs Neuts (Manual) 2.56 Abs Lymphs (Manual) 2.67 Abs Monocytes (Manual) 0.34 Absolute Eos (Manual) 0.11 Platelet Estimate Adequate [place] Cells 1+ Schistocytes None seen Sodium 138 Potassium 4.2 Chloride 107 Carbon Dioxide 26 Anion Gap 5 BUN 5 L Creatinine 0.96 Estim Creat Clear Calc 71 Estimated GFR 60 Glucose 94 POC Capillary Glucose 94 Lactic Acid 1.3 Calcium 8.4 Magnesium 2.0 C. difficile (PCR) 10/15/24 10/15/24 08:54 11:49 WBC RBC Hgb Hct MCV MCH MCHC RDW Plt Count MPV Immature Gran % (Auto) Neut % (Auto) Lymph % (Auto) [place] % (Auto) Eos % (Auto) Baso % (Auto) Lymph # (Auto) [place] # (Auto) Eos # (Auto) Baso # (Auto) Abs Immat Gran (auto) Absolute Neuts (auto) Absolute Nucleated RBC Total Counted Neutrophils % (Manual) Band Neutrophils % Lymphocytes % (Manual) Monocytes % (Manual) Eosinophils % (Manual) Nucleated RBC % Abs Neuts (Manual) Abs Lymphs (Manual) Abs Monocytes (Manual) Absolute Eos (Manual) Platelet Estimate [place] Cells Schistocytes Sodium Potassium Chloride Carbon Dioxide Anion Gap BUN Creatinine Estim Creat Clear Calc Estimated GFR Glucose POC Capillary Glucose 125 H Lactic Acid Calcium Magnesium C. difficile (PCR) Positive A*
[2024-10-15 17:00] LABS: Glucose Point of Care 96 mg/dl (65-105)
[2024-10-15 20:00] VITALS: PULSE 65; RESP 16; O2SAT 99
[2024-10-15 20:35] LABS: Glucose Point of Care 106 mg/dl (65-105)
[2024-10-15 20:43] VITALS: BP 98/53; PULSE 65; RESP 16; TEMP 36.6; O2SAT 99
[2024-10-16] MEDS: PIPERACILLN/TAZ 3.375GM/NS50ML 3.375 GM/50 ML BAG IVPB ×4 (02:19→21:15)
[2024-10-16 05:15] LABS: Basophils Absolute Auto 0.1 K/mm3 (0.0-0.1); Basophils Percent Auto 1.1 % (0.2-1.2); Eosinophils Absolute Auto 0.1 K/mm3 (0-0.3); Eosinophils Percent Auto 2.1 % (0-4.4); Hematocrit 42.3 % (37.0-47.0); Hemoglobin 13.3 g/dL (12.0-15.0); Immature Granulocyte Absolute 0.01 K/mm3 (0.00-0.031); Immature Granulocyte Percent A 0.2 % (0-0.5); Lymphocytes Absolute Auto 2.72 K/mm3 (0.9-3.2); Lymphocytes Percent Auto 51.3 % (18.3-44.2); Mean Corpuscular HGB Conc 31.4 g/dl (32-36); Mean Corpuscular Hemoglobin 29.2 pg (26-34); Mean Corpuscular Volume 92.8 fl (80-100); Mean Platelet Volume 10.4 fl (7.4-10.4); Monocytes Absolute Auto 0.3 K/mm3 (0.1-0.6); Monocytes Percent Auto 6.2 % (2.6-8.5); Neutrophils Absolute Auto 2.1 K/mm3 (1.3-6.7); Neutrophils Percent Auto 39.1 % (45.5-73.1); Platelet Count Result 307 k/mm3 (150-375); Red Blood Count 4.56 M/mm3 (4.2-5.4); Red Cell Distribution Width 13.6 % (11.5-14.5); White Blood Count 5.3 K/mm3 (4.5-10.0)
[2024-10-16 05:26] LABS: Alanine Aminotransferase 17 U/L (6-35); Albumin Level 3.7 g/dL (3.5-5.1); Alkaline Phosphatase 60 U/L (38-126); Anion Gap 7 mmol/L (4-12); Aspartate Amino Transferase 24 U/L (14-36); Bilirubin,Total 0.3 mg/dL (0.2-1.3); Blood Urea Nitrogen 10 mg/dL (7-17); Calcium 8.7 mg/dL (8.4-10.2); Carbon Dioxide 29 mmol/L (22-30); Chloride 105 mmol/L (98-107); Estimated CRCL calculation 71 ml/min; Estimated Glomerular Filt Rate 60; Glucose 109 mg/dL (65-110); Magnesium 2.2 mg/dL (1.6-2.3); Potassium 4.2 mmol/L (3.4-5.0); Sodium 141 mmol/L (137-145)
[2024-10-16 05:37] VITALS: BP 123/75; PULSE 60; RESP 16; TEMP 36.5; O2SAT 99
[2024-10-16] MEDS: VANCOMYCIN HCL 125 MG ORAL CAPSULE PO ×4 (05:43→23:59)
[2024-10-16] MEDS: SODIUM CHLORIDE 0.9% IV 1,000 ML 60 ML IV CONT (05:49)
[2024-10-16 08:16] LABS: Glucose Point of Care 105 mg/dl (65-105)
[2024-10-16] MEDS: ENOXAPARIN 40 MG/0.4 ML SYRINGE SUB-Q (09:22)
[2024-10-16] MEDS: HYDROcodone/acetaminophen (*CRX) 5-325 MG TABLET 1 TAB PO ×2 (10:05→15:54)
--- NOTE | 2024-10-16 10:49 | PM.PNGS ---
Progress Note: A&P Assessment and Plan (1) Diverticulitis of colon with perforation: Code(s): K57.20 - Diverticulitis of large intestine with perforation and abscess without bleeding Status: Acute Assessment and Plan: Tolerating low fiber diet and WBC normal. OK to discharge from surgical standpoint. Recommend Augmentin/Flagyl x10 days F/U with Dr. Bowen in 2 weeks. (2) C. difficile colitis: Code(s): A04.72 - Enterocolitis due to Clostridium difficile, not specified as recurrent Status: Acute Assessment and Plan: Continue as per Hospitalist (3) Type 2 diabetes mellitus: Code(s): E11.9 - Type 2 diabetes mellitus without complications Status: Acute (4) HTN (hypertension): Qualifiers: Hypertension type: essential hypertension Qualified Code(s): I10 - Essential (primary) hypertension Code(s): I10 - Essential (primary) hypertension Status: Acute (5) Tobacco dependence: Code(s): F17.200 - Nicotine dependence, unspecified, uncomplicated Status: Acute Subjective Subjective Date/Time Seen: 10/16/24 10:49 Interval history: Tolerating diet. Still having some mild RLQ pain, but overall continuing to improve. No fevers. Exam GI: Inspection: non-distended and obesity GI Palp: Yes Soft to palpation, Yes Tenderness to palpation present (GI) (RLQ), No Guarding due to palpation present (GI) and No Rebound tenderness present Percussion: Yes normal to percussion Auscultation: normal bowel sounds Objective Data Vital Signs Vital Signs: Vital Signs - 24 hr 10/15/24 14:00 10/15/24 20:00 10/15/24 20:43 Temperature 98.2 F 97.8 F Pulse Rate 68 65 65 Respiratory Rate 16 16 16 Blood Pressure 121/60 98/53 L Pulse Oximetry 100 99 99 Oxygen Delivery Room Air Fraction of Inspired Oxygen 21 10/16/24 05:37 10/16/24 08:00 Temperature 97.7 F Pulse Rate 60 Respiratory Rate 16 Blood Pressure 123/75 Pulse Oximetry 99 Oxygen Delivery Room Air Fraction of Inspired Oxygen Intake/Output Intake/Output: Intake & Output 10/13/24 10/14/24 10/15/24 10/16/24 23:59 23:59 23:59 23:59 Intake Total 2126 4240 1640 Balance 2126 4240 1640 Meds/Results Medications: Active Medications Generic Name Dose Route Start Last Admin Trade Name Freq PRN Reason Stop Dose Admin Acetaminophen 650 mg 10/14/24 22:33 Acetaminophen 325 Mg Tablet PO Q6H PRN Mild Pain (1-3) or Fever Hydrocodone Bitart/Acetaminophen 1 tab 10/16/24 09:50 10/16/24 10:05 Hydrocodone/Acetaminophen (*Crx) 5-325 Mg Tablet PO 1 tab Q4H PRN Administration Pain Rated 4-6 Dextrose 12.5 gm 10/14/24 22:33 Dextrose 50% 25 Gm/50 Ml Syringe IV PUSH PRN PRN Hypoglycemia Protocol Enoxaparin Sodium 40 mg 10/15/24 09:00 10/16/24 09:22 Enoxaparin 40 Mg/0.4 Ml Syringe SUB-Q 40 mg DAILY CHENG Administration Glucagon 1 mg 10/14/24 22:33 Glucagon For Inj 1 Mg Vial IM PRN PRN Hypoglycemia Protocol Glucose 15 gm 10/14/24 22:33 Glucose Oral Gel 15 Gm Of Glucse In 37.5 Gm Tube PO PRN PRN Hypoglycemia Protocol Piperacillin/Tazobactam/Dextrose 3.375 gm in 50 mls @ 100 mls/hr 10/14/24 21:00 10/16/24 09:52 Zosyn 3.375 Gm/Ns 50 Ml IVPB Infused Q6H CHENG Infusion Dextrose 1,000 mls @ 100 mls/hr 10/14/24 22:33 Dextrose 5% 1,000 Ml IVPB PRN PRN Hypoglycemia Protocol Insulin Aspart 2 - 5 units 10/15/24 08:00 10/16/24 09:19 Insulin Aspart (*Bkc) 100 Units/Ml SUB-Q Not Given TIDWM [facility] Protocol Insulin Aspart 1 - 2 units 10/15/24 21:00 10/15/24 20:52 Insulin Aspart (*Bkc) 100 Units/Ml SUB-Q Not Given HS [facility] Protocol Morphine Sulfate 4 mg 10/14/24 14:58 10/15/24 05:02 Morphine Sulfate (*Crx) 4 Mg/Ml Inj IV PUSH 4 mg Q2H PRN Administration Pain Rated 7-10 Ondansetron HCl 4 mg 10/14/24 14:58 10/14/24 19:41 Ondansetron Inj 4 Mg/2 Ml Vial IV PUSH 4 mg Q4H PRN Administration Nausea Vancomycin HCl 125 mg 10/15/24 12:00 10/16/24 05:43 Vancomycin Hcl 125 Mg Oral Capsule PO 10/25/24 11:59 125 mg Q6HR CHENG Administration Radiology Results: ITS Impressions Abdomen/Pelvis CT 10/14/24 13:32 IMPRESSION: Interval progression of sigmoid diverticulitis now with a contained perforation. No drainable fluid collection or gross free air. Labs Labs: Laboratory Results - last 24 hr 10/15/24 10/15/24 10/15/24 08:54 11:49 16:54 WBC RBC Hgb Hct MCV MCH MCHC RDW Plt Count MPV Immature Gran % (Auto) Neut % (Auto) Lymph % (Auto) [place] % (Auto) Eos % (Auto) Baso % (Auto) Lymph # (Auto) [place] # (Auto) Eos # (Auto) Baso # (Auto) Abs Immat Gran (auto) Absolute Neuts (auto) Absolute Nucleated RBC Nucleated RBC % Sodium Potassium Chloride Carbon Dioxide Anion Gap BUN Creatinine Estim Creat Clear Calc Estimated GFR Glucose POC Capillary Glucose 125 H 96 Calcium Magnesium Total Bilirubin AST ALT Alkaline Phosphatase Total Protein Albumin C. difficile (PCR) Positive A* 10/15/24 10/16/24 10/16/24 20:27 04:45 08:05 WBC 5.3 RBC 4.56 Hgb 13.3 Hct 42.3 MCV 92.8 MCH 29.2 MCHC 31.4 L RDW 13.6 Plt Count 307 MPV 10.4 Immature Gran % (Auto) 0.2 Neut % (Auto) 39.1 L Lymph % (Auto) 51.3 H [place] % (Auto) 6.2 Eos % (Auto) 2.1 Baso % (Auto) 1.1 Lymph # (Auto) 2.72 [place] # (Auto) 0.3 Eos # (Auto) 0.1 Baso # (Auto) 0.1 Abs Immat Gran (auto) 0.01 Absolute Neuts (auto) 2.1 Absolute Nucleated RBC 0.000 Nucleated RBC % 0.0 Sodium 141 Potassium 4.2 Chloride 105 Carbon Dioxide 29 Anion Gap 7 BUN 10 D Creatinine 0.97 Estim Creat Clear Calc 71 Estimated GFR 60 Glucose 109 POC Capillary Glucose 106 H 105 Calcium 8.7 Magnesium 2.2 Total Bilirubin 0.3 AST 24 ALT 17 Alkaline Phosphatase 60 Total Protein 7.0 Albumin 3.7 C. difficile (PCR)
--- NOTE | 2024-10-16 14:57 | P.PNIM_ITS ---
Progress Note: A&P Assessment and Plan (1) Diverticulitis of colon with perforation: Code(s): K57.20 - Diverticulitis of large intestine with perforation and abscess without bleeding Status: Acute (2) Hypertension: Code(s): I10 - Essential (primary) hypertension Status: Acute (3) Type 2 diabetes mellitus: Code(s): E11.9 - Type 2 diabetes mellitus without complications Status: Acute (4) Hypothyroidism: Qualifiers: Hypothyroidism type: other Qualified Code(s): E03.8 - Other specified hypothyroidism Code(s): E03.9 - Hypothyroidism, unspecified Status: Acute (5) Chronic obstructive pulmonary disease: Code(s): J44.9 - Chronic obstructive pulmonary disease, unspecified Status: Acute (6) Tobacco dependence: Code(s): F17.200 - Nicotine dependence, unspecified, uncomplicated Status: Acute Plan This is a pleasant 53-year-old female smoker with history of section, ovarian cysts, irritable bowel syndrome, hypertension, chronic kidney disease stage 2, chronic obstructive pulmonary disease, hypothyroidism, and bipolar disorder who presented to the emergency department with complaints of abdominal pain. She was seen in the ED on 10/08/2024 for evaluation of right-sided abdominal pain and distension associated with decreased appetite, nausea, and chills. CT scan at that time showed wall thickening and surrounding inflammatory stranding of the sigmoid colon, likely diverticulitis and she was discharged home with prescriptions for ciprofloxacin and metronidazole. She has been taking her medications as prescribed initially thought she was improving however over the last few days her pain has intensified and at settled more so in the right lower quadrant. She also reports poor appetite, nausea, and liquid stools. She denies fever, chest pain, shortness of breath, vomiting, melena, hematochezia, dysuria, and hematuria. In the ED: Vital signs on arrival include temperature 97.8?, blood pressure 171/83, pulse 125, respiratory rate 17, SpO2 98% on room air. CMP and CBC were unremarkable. Urinalysis was positive for trace ketones, trace leukocyte esterase, and 6 to [address] of the abdomen pelvis showed interval progression of sigmoid diverticulitis now with a contained perforation. She was started on Zosyn and is being admitted in this setting for further treatment and surgery consultation. Sigmoid diverticulitis with contained perforation. On IV Zosyn. General surgery consulted will stop IV fluids today. History ovarian cyst Irritable bowel syndrome Hypertension CKD stage 2 COPD Hypothyroidism Bipolar disorder C diff came back positive start vancomycin oral DVT prophylaxis Subjective Date/time seen: 10/16/24 14:57 Interval history: Pain is better. No nausea vomiting. Tolerating diet. Still has some diarrhea Review of Systems Review of Systems: All systems reviewed & are unremarkable except as noted in HPI and below Exam Narrative: General: Nontoxic-appearing female supine in bed not in acute distress HEENT: PERRL, EOMI. Sclera anicteric. Tacky mucous membranes. Neck: Supple. Respiratory: Lungs are clear to auscultation bilaterally. Cardiovascular: Regular rate and rhythm with S1-S2. Gastrointestinal: Abdomen is slightly distended with positive bowel sounds. She is tender to palpation in the right lower quadrant Skin: Warm and dry. Extremities: No cyanosis, clubbing, or edema. Radial and pedal pulses intact. Neurological: Alert. Cranial nerves 2-12 are grossly intact. No gross focal deficits to casual conversation. Psychiatric: Pleasant and cooperative with normal mood and affect. Judgment and insight intact. Objective Data Vital Signs Vital Signs: Vital Signs - 24 hr 10/15/24 20:00 10/15/24 20:43 10/16/24 05:37 Temperature 97.8 F 97.7 F Pulse Rate 65 65 60 Respiratory Rate 16 16 16 Blood Pressure 98/53 L 123/75 Pulse Oximetry 99 99 99 Oxygen Delivery Room Air Fraction of Inspired Oxygen 21 10/16/24 08:00 Temperature Pulse Rate Respiratory Rate Blood Pressure Pulse Oximetry Oxygen Delivery Room Air Fraction of Inspired Oxygen Intake/Output Intake/Output: Intake & Output 10/13/24 10/14/24 10/15/24 10/16/24 23:59 23:59 23:59 23:59 Intake Total 6 4240 1640 Balance 2126 4240 1640 Meds/Results Medications: Active Medications Generic Name Dose Route Start Last Admin Trade Name Freq PRN Reason Stop Dose Admin Acetaminophen 650 mg 10/14/24 22:33 Acetaminophen 325 Mg Tablet PO Q6H PRN Mild Pain (1-3) or Fever Hydrocodone Bitart/Acetaminophen 1 tab 10/16/24 09:50 10/16/24 10:05 Hydrocodone/Acetaminophen (*Crx) 5-325 Mg Tablet PO 1 tab Q4H PRN Administration Pain Rated 4-6 Enoxaparin Sodium 40 mg 10/15/24 09:00 10/16/24 09:22 Enoxaparin 40 Mg/0.4 Ml Syringe SUB-Q 40 mg DAILY CHENG Administration Piperacillin/Tazobactam/Dextrose 3.375 gm in 50 mls @ 100 mls/hr 10/14/24 21:00 10/16/24 09:52 Zosyn 3.375 Gm/Ns 50 Ml IVPB Infused Q6H CHENG Infusion Morphine Sulfate 4 mg 10/14/24 14:58 10/15/24 05:02 Morphine Sulfate (*Crx) 4 Mg/Ml Inj IV PUSH 4 mg Q2H PRN Administration Pain Rated 7-10 Nicotine 1 patch 10/16/24 13:05 Nicotine (*Pbkc) 14 Mg Patch TRANSDERM DAILY CHENG Ondansetron HCl 4 mg 10/14/24 14:58 10/14/24 19:41 Ondansetron Inj 4 Mg/2 Ml Vial IV PUSH 4 mg Q4H PRN Administration Nausea Vancomycin HCl 125 mg 10/15/24 12:00 10/16/24 11:59 Vancomycin Hcl 125 Mg Oral Capsule PO 10/25/24 11:59 125 mg Q6HR CHENG Administration Radiology Results: ITS Impressions Abdomen/Pelvis CT 10/14/24 13:32 IMPRESSION: Interval progression of sigmoid diverticulitis now with a contained perforation. No drainable fluid collection or gross free air. Labs Labs: Laboratory Results - last 24 hr 10/15/24 10/15/24 10/16/24 16:54 20:27 04:45 WBC 5.3 RBC 4.56 Hgb 13.3 Hct 42.3 MCV 92.8 MCH 29.2 MCHC 31.4 L RDW 13.6 Plt Count 307 MPV 10.4 Immature Gran % (Auto) 0.2 Neut % (Auto) 39.1 L Lymph % (Auto) 51.3 H [place] % (Auto) 6.2 Eos % (Auto) 2.1 Baso % (Auto) 1.1 Lymph # (Auto) 2.72 [place] # (Auto) 0.3 Eos # (Auto) 0.1 Baso # (Auto) 0.1 Abs Immat Gran (auto) 0.01 Absolute Neuts (auto) 2.1 Absolute Nucleated RBC 0.000 Nucleated RBC % 0.0 Sodium 141 Potassium 4.2 Chloride 105 Carbon Dioxide 29 Anion Gap 7 BUN 10 D Creatinine 0.97 Estim Creat Clear Calc 71 Estimated GFR 60 Glucose 109 POC Capillary Glucose 96 106 H Calcium 8.7 Magnesium 2.2 Total Bilirubin 0.3 AST 24 ALT 17 Alkaline Phosphatase 60 Total Protein 7.0 Albumin 3.7 10/16/24 08:05 WBC RBC Hgb Hct MCV MCH MCHC RDW Plt Count MPV Immature Gran % (Auto) Neut % (Auto) Lymph % (Auto) [place] % (Auto) Eos % (Auto) Baso % (Auto) Lymph # (Auto) [place] # (Auto) Eos # (Auto) Baso # (Auto) Abs Immat Gran (auto) Absolute Neuts (auto) Absolute Nucleated RBC Nucleated RBC % Sodium Potassium Chloride Carbon Dioxide Anion Gap BUN Creatinine Estim Creat Clear Calc Estimated GFR Glucose POC Capillary Glucose 105 Calcium Magnesium Total Bilirubin AST ALT Alkaline Phosphatase Total Protein Albumin
[2024-10-16] MEDS: NICOTINE (*PBKC) 14 MG PATCH 1 PATCH TRANSDERM (15:02)
[2024-10-16 15:05] VITALS: BP 114/62; PULSE 70; RESP 16; TEMP 36.3; O2SAT 99
[2024-10-16 20:00] VITALS: PULSE 70; RESP 16; O2SAT 99
[2024-10-16 22:54] VITALS: BP 111/65; PULSE 67; RESP 16; TEMP 36.8; O2SAT 98
[2024-10-17] MEDS: PIPERACILLN/TAZ 3.375GM/NS50ML 3.375 GM/50 ML BAG IVPB ×2 (02:17→08:41)
[2024-10-17] MEDS: VANCOMYCIN HCL 125 MG ORAL CAPSULE PO ×4 (05:54→23:28)
[2024-10-17 06:16] VITALS: BP 123/69; PULSE 62; RESP 16; TEMP 36.8; O2SAT 98
[2024-10-17] MEDS: ENOXAPARIN 40 MG/0.4 ML SYRINGE SUB-Q (08:41)
[2024-10-17] MEDS: NICOTINE (*PBKC) 14 MG PATCH 1 PATCH TRANSDERM (08:41)
--- NOTE | 2024-10-17 11:45 | P.PNGS_ITS ---
Progress Note: A&P Assessment and Plan (1) Diverticulitis of colon with perforation: Code(s): K57.20 - Diverticulitis of large intestine with perforation and abscess without bleeding Status: Acute Assessment and Plan: * Tolerating low fiber diet and WBC normal. OK to discharge from surgical standpoint. * Recommend Augmentin/Flagyl x10 days * F/U with Dr. Bowen in 2 weeks. (2) C. difficile colitis: Code(s): A04.72 - Enterocolitis due to Clostridium difficile, not specified as recurrent Status: Acute Assessment and Plan: * Continue as per Hospitalist (3) Type 2 diabetes mellitus: Code(s): E11.9 - Type 2 diabetes mellitus without complications Status: Acute (4) HTN (hypertension): Qualifiers: Hypertension type: essential hypertension Qualified Code(s): I10 - Essential (primary) hypertension Code(s): I10 - Essential (primary) hypertension Status: Acute (5) Tobacco dependence: Code(s): F17.200 - Nicotine dependence, unspecified, uncomplicated Status: Acute Subjective Subjective Date/Time Seen: 10/17/24 11:45 Interval history: No significant abdominal pain. Bowels moving but still having diarrhea. No fevers. Exam GI: Inspection: non-distended and obesity GI Palp: Yes Soft to palpation, Yes Tenderness to palpation present (GI) (minimal RLQ), No Guarding due to palpation present (GI) and No Rebound tenderness present Percussion: Yes normal to percussion Auscultation: normal bowel sounds Rectal Exam: other (no signs of perirectal abscess) Objective Data Vital Signs Vital Signs: Vital Signs - 24 hr 10/16/24 15:05 10/16/24 20:00 10/16/24 22:54 Temperature 97.3 F L 98.2 F Pulse Rate 70 70 67 Respiratory Rate 16 16 16 Blood Pressure 114/62 111/65 Pulse Oximetry 99 99 98 Oxygen Delivery Room Air Fraction of Inspired Oxygen 21 10/17/24 06:16 Temperature 98.2 F Pulse Rate 62 Respiratory Rate 16 Blood Pressure 123/69 Pulse Oximetry 98 Oxygen Delivery Fraction of Inspired Oxygen Intake/Output Intake/Output: Intake & Output 10/14/24 10/15/24 10/16/24 10/17/24 23:59 23:59 23:59 23:59 Intake Total 2126 4240 2110 680 Balance 2126 4240 2109 680 Meds/Results Medications: Active Medications Generic Name Dose Route Start Last Admin Trade Name Freq PRN Reason Stop Dose Admin Acetaminophen 650 mg 10/14/24 22:33 Acetaminophen 325 Mg Tablet PO Q6H PRN Mild Pain (1-3) or Fever Hydrocodone Bitart/Acetaminophen 1 tab 10/16/24 09:50 10/16/24 15:54 Hydrocodone/Acetaminophen (*Crx) 5-325 Mg Tablet PO 1 tab Q4H PRN Administration Pain Rated 4-6 Enoxaparin Sodium 40 mg 10/15/24 09:00 10/17/24 08:41 Enoxaparin 40 Mg/0.4 Ml Syringe SUB-Q 40 mg DAILY CHENG Administration Piperacillin/Tazobactam/Dextrose 3.375 gm in 50 mls @ 100 mls/hr 10/14/24 21:00 10/17/24 09:11 Zosyn 3.375 Gm/Ns 50 Ml IVPB Infused Q6H CHENG Infusion Morphine Sulfate 4 mg 10/14/24 14:58 10/15/24 05:02 Morphine Sulfate (*Crx) 4 Mg/Ml Inj IV PUSH 4 mg Q2H PRN Administration Pain Rated 7-10 Nicotine 1 patch 10/16/24 13:05 10/17/24 08:41 Nicotine (*Pbkc) 14 Mg Patch TRANSDERM 1 patch DAILY CHENG Administration Ondansetron HCl 4 mg 10/14/24 14:58 10/14/24 19:41 Ondansetron Inj 4 Mg/2 Ml Vial IV PUSH 4 mg Q4H PRN Administration Nausea Vancomycin HCl 125 mg 10/15/24 12:00 10/17/24 05:54 Vancomycin Hcl 125 Mg Oral Capsule PO 10/25/24 11:59 125 mg Q6HR CHENG Administration Radiology Results: ITS Impressions Abdomen/Pelvis CT 10/14/24 13:32 IMPRESSION: Interval progression of sigmoid diverticulitis now with a contained perforation. No drainable fluid collection or gross free air.
--- NOTE | 2024-10-17 12:12 | P.PNIM_ITS ---
Progress Note: A&P Assessment and Plan (1) Diverticulitis of colon with perforation: Code(s): K57.20 - Diverticulitis of large intestine with perforation and abscess without bleeding Status: Acute (2) Hypertension: Code(s): I10 - Essential (primary) hypertension Status: Acute (3) Type 2 diabetes mellitus: Code(s): E11.9 - Type 2 diabetes mellitus without complications Status: Acute (4) Hypothyroidism: Qualifiers: Hypothyroidism type: other Qualified Code(s): E03.8 - Other specified hypothyroidism Code(s): E03.9 - Hypothyroidism, unspecified Status: Acute (5) Chronic obstructive pulmonary disease: Code(s): J44.9 - Chronic obstructive pulmonary disease, unspecified Status: Acute (6) Tobacco dependence: Code(s): F17.200 - Nicotine dependence, unspecified, uncomplicated Status: Acute Plan This is a pleasant 53-year-old female smoker with history of section, ovarian cysts, irritable bowel syndrome, hypertension, chronic kidney disease stage 2, chronic obstructive pulmonary disease, hypothyroidism, and bipolar disorder who presented to the emergency department with complaints of abdominal pain. She was seen in the ED on 10/08/2024 for evaluation of right-sided abdominal pain and distension associated with decreased appetite, nausea, and chills. CT scan at that time showed wall thickening and surrounding inflammatory stranding of the sigmoid colon, likely diverticulitis and she was discharged home with prescriptions for ciprofloxacin and metronidazole. She has been taking her medications as prescribed initially thought she was improving however over the last few days her pain has intensified and at settled more so in the right lower quadrant. She also reports poor appetite, nausea, and liquid stools. She denies fever, chest pain, shortness of breath, vomiting, melena, hematochezia, dysuria, and hematuria. In the ED: Vital signs on arrival include temperature 97.8?, blood pressure 171/83, pulse 125, respiratory rate 17, SpO2 98% on room air. CMP and CBC were unremarkable. Urinalysis was positive for trace ketones, trace leukocyte esterase, and 6 to [address] of the abdomen pelvis showed interval progression of sigmoid diverticulitis now with a contained perforation. She was started on Zosyn and is being admitted in this setting for further treatment and surgery consultation. Sigmoid diverticulitis with contained perforation. On IV Zosyn. General surgery consulted IV fluids stopped. Was switched to oral Augmentin History ovarian cyst Irritable bowel syndrome Hypertension CKD stage 2 COPD Hypothyroidism Bipolar disorder C diff came back positive start vancomycin oral DVT prophylaxis Subjective Date/time seen: 10/17/24 12:12 Interval history: Continues to have diarrhea. Abdominal discomfort is still present. Had some soreness in her bottom yesterday. This has resolved. Review of Systems Review of Systems: All systems reviewed & are unremarkable except as noted in HPI and below Exam Narrative: General: Nontoxic-appearing female supine in bed not in acute distress HEENT: PERRL, EOMI. Sclera anicteric. Tacky mucous membranes. Neck: Supple. Respiratory: Lungs are clear to auscultation bilaterally. Cardiovascular: Regular rate and rhythm with S1-S2. Gastrointestinal: Abdomen is slightly distended with positive bowel sounds. She is tender to palpation in the right lower quadrant Skin: Warm and dry. Extremities: No cyanosis, clubbing, or edema. Radial and pedal pulses intact. Neurological: Alert. Cranial nerves 2-12 are grossly intact. No gross focal deficits to casual conversation. Psychiatric: Pleasant and cooperative with normal mood and affect. Judgment and insight intact. Objective Data Vital Signs Vital Signs: Vital Signs - 24 hr 10/16/24 15:05 10/16/24 20:00 10/16/24 22:54 Temperature 97.3 F L 98.2 F Pulse Rate 70 70 67 Respiratory Rate 16 16 16 Blood Pressure 114/62 111/65 Pulse Oximetry 99 99 98 Oxygen Delivery Room Air Fraction of Inspired Oxygen 21 10/17/24 06:16 Temperature 98.2 F Pulse Rate 62 Respiratory Rate 16 Blood Pressure 123/69 Pulse Oximetry 98 Oxygen Delivery Fraction of Inspired Oxygen Intake/Output Intake/Output: Intake & Output 10/14/24 10/15/24 10/16/24 10/17/24 23:59 23:59 23:59 23:59 Intake Total 4 4240 2110 680 Balance 2125 4240 2110 680 Meds/Results Medications: Active Medications Generic Name Dose Route Start Last Admin Trade Name Freq PRN Reason Stop Dose Admin Acetaminophen 650 mg 10/14/24 22:33 Acetaminophen 325 Mg Tablet PO Q6H PRN Mild Pain (1-3) or Fever Hydrocodone Bitart/Acetaminophen 1 tab 10/16/24 09:50 10/16/24 15:54 Hydrocodone/Acetaminophen (*Crx) 5-325 Mg Tablet PO 1 tab Q4H PRN Administration Pain Rated 4-6 Enoxaparin Sodium 40 mg 10/15/24 09:00 10/17/24 08:41 Enoxaparin 40 Mg/0.4 Ml Syringe SUB-Q 40 mg DAILY CHENG Administration Piperacillin/Tazobactam/Dextrose 3.375 gm in 50 mls @ 100 mls/hr 10/14/24 21:00 10/17/24 09:11 Zosyn 3.375 Gm/Ns 50 Ml IVPB Infused Q6H CHENG Infusion Morphine Sulfate 4 mg 10/14/24 14:58 10/15/24 05:02 Morphine Sulfate (*Crx) 4 Mg/Ml Inj IV PUSH 4 mg Q2H PRN Administration Pain Rated 7-10 Nicotine 1 patch 10/16/24 13:05 10/17/24 08:41 Nicotine (*Pbkc) 14 Mg Patch TRANSDERM 1 patch DAILY CHENG Administration Ondansetron HCl 4 mg 10/14/24 14:58 10/14/24 19:41 Ondansetron Inj 4 Mg/2 Ml Vial IV PUSH 4 mg Q4H PRN Administration Nausea Vancomycin HCl 125 mg 10/15/24 12:00 10/17/24 05:54 Vancomycin Hcl 125 Mg Oral Capsule PO 10/25/24 11:59 125 mg Q6HR CHENG Administration Zinc Oxide 1 applic 10/17/24 11:47 Zinc Oxide 20% Oint 30 Gm Tube TOPICAL PRN PRN Rash Radiology Results: ITS Impressions Abdomen/Pelvis CT 10/14/24 13:32 IMPRESSION: Interval progression of sigmoid diverticulitis now with a contained perforation. No drainable fluid collection or gross free air.
[2024-10-17] MEDS: ZINC OXIDE 20% OINT 30 GM TUBE 1 APPLIC TOPICAL (13:08)
[2024-10-17 14:00] VITALS: BP 132/73; PULSE 87; RESP 17; TEMP 36.6; O2SAT 100
[2024-10-17] MEDS: AMOXICILLIN/CLAVULANATE K 875-125 MG TAB 1 TABLET PO (20:01)
[2024-10-17 22:00] VITALS: BP 151/61; PULSE 80; RESP 18; TEMP 36.8; O2SAT 99
[2024-10-18] MEDS: VANCOMYCIN HCL 125 MG ORAL CAPSULE PO ×2 (05:52→11:21)
[2024-10-18 06:00] VITALS: BP 106/49; PULSE 63; RESP 18; TEMP 36.7; O2SAT 98
[2024-10-18] MEDS: AMOXICILLIN/CLAVULANATE K 875-125 MG TAB 1 TABLET PO (08:53)
[2024-10-18 08:57] VITALS: RESP 18; O2SAT 98
[2024-10-18] MEDS: NICOTINE (*PBKC) 14 MG PATCH 1 PATCH TRANSDERM (10:29)
--- NOTE | 2024-10-18 10:54 | PM.DS ---
DS: Admitting Diagnosis Discharge Date 10/18/2024 Admitting Diagnosis Abdominal pain DS: Discharge Diagnosis Discharge Diagnosis (1) Diverticulitis of colon with perforation: Code(s): K57.20 - Diverticulitis of large intestine with perforation and abscess without bleeding Status: Acute (2) Hypertension: Code(s): I10 - Essential (primary) hypertension Status: Acute (3) Type 2 diabetes mellitus: Code(s): E11.9 - Type 2 diabetes mellitus without complications Status: Acute (4) Hypothyroidism: Qualifiers: Hypothyroidism type: other Qualified Code(s): E03.8 - Other specified hypothyroidism Code(s): E03.9 - Hypothyroidism, unspecified Status: Acute (5) Chronic obstructive pulmonary disease: Code(s): J44.9 - Chronic obstructive pulmonary disease, unspecified Status: Acute (6) Tobacco dependence: Code(s): F17.200 - Nicotine dependence, unspecified, uncomplicated Status: Acute DS: Summary Hospital Course Hospital Course: This is a pleasant 53-year-old female smoker with history of section, ovarian cysts, irritable bowel syndrome, hypertension, chronic kidney disease stage 2, chronic obstructive pulmonary disease, hypothyroidism, and bipolar disorder who presented to the emergency department with complaints of abdominal pain. She was seen in the ED on 10/08/2024 for evaluation of right-sided abdominal pain and distension associated with decreased appetite, nausea, and chills. CT scan at that time showed wall thickening and surrounding inflammatory stranding of the sigmoid colon, likely diverticulitis and she was discharged home with prescriptions for ciprofloxacin and metronidazole. She has been taking her medications as prescribed initially thought she was improving however over the last few days her pain has intensified and at settled more so in the right lower quadrant. She also reports poor appetite, nausea, and liquid stools. She denies fever, chest pain, shortness of breath, vomiting, melena, hematochezia, dysuria, and hematuria. In the ED: Vital signs on arrival include temperature 97.8?, blood pressure 171/83, pulse 125, respiratory rate 17, SpO2 98% on room air. CMP and CBC were unremarkable. Urinalysis was positive for trace ketones, trace leukocyte esterase, and 6 to [address] of the abdomen pelvis showed interval progression of sigmoid diverticulitis now with a contained perforation. She was started on Zosyn and is being admitted in this setting for further treatment and surgery consultation. Sigmoid diverticulitis with contained perforation. On IV Zosyn. General surgery consulted IV fluids stopped. Was switched to oral Augmentin will finish the course. Tolerating diet pain improved History ovarian cyst Irritable bowel syndrome Hypertension CKD stage 2 COPD Hypothyroidism Bipolar disorder C diff came back positive start vancomycin oral which will be continued 7 days past oral antibiotics. Diarrhea improving DVT prophylaxis Time Spent with Patient Time attestation: Total time spent providing and/or coordinating discharge services: 35 minutes Exam Narrative: General: Nontoxic-appearing female supine in bed not in acute distress HEENT: PERRL, EOMI. Sclera anicteric. Tacky mucous membranes. Neck: Supple. Respiratory: Lungs are clear to auscultation bilaterally. Cardiovascular: Regular rate and rhythm with S1-S2. Gastrointestinal: Abdomen is slightly distended with positive bowel sounds. She is tender to palpation in the right lower quadrant Skin: Warm and dry. Extremities: No cyanosis, clubbing, or edema. Radial and pedal pulses intact. Neurological: Alert. Cranial nerves 2-12 are grossly intact. No gross focal deficits to casual conversation. Psychiatric: Pleasant and cooperative with normal mood and affect. Judgment and insight intact. DS: Data Data Completed and Pending Labs on day of discharge: Preliminary micro results at discharge 10/14/24 15:07 Blood Culture - Preliminary Blood 10/14/24 15:10 Blood Culture - Preliminary Blood Imaging Radiologist's impression: ITS Impressions Abdomen/Pelvis CT 10/14/24 13:32 IMPRESSION: Interval progression of sigmoid diverticulitis now with a contained perforation. No drainable fluid collection or gross free air. Discharge Plan Discharge Attending physician on discharge: Luis Walker Consulting providers: Dena Bowen Discharging Clinician: Luis Walker Anticipated Discharge Date/Time: 10/18/24 10:56 Patient Disposition: Home Activity: as tolerated Diet: as tolerated and low fiber Discharge Instructions: Discharge home on Low Fiber diet for 2 weeks, then may transition to high fiber diet. Recommend Augmentin 875mg BID and Flagyl 500mg TID x 10 days. Patient Instructions: Antibiotic Form, High Fiber Diet (DC), Low Fiber Diet (DC) Patient Language: Estonian Stand Alone Forms: General Discharge Information Follow-up/Referrals: Jamia Valencia MD [Primary Care Provider] - 1 Week Dena Bowen MD [Physician] - 2 Weeks Discharge Medications: New vancomycin 125 mg Capsule 125 mg PO Q6HR Qty: 56 0RF amoxicillin-pot clavulanate 875-125 mg tablet 1 tablet PO Q12H Qty: 14 0RF Continued acetaminophen 500 mg capsule 1,000 mg PO Q6H PRN (Reason: pain) Qty: 30 0RF Discontinued buspirone 10 mg tablet 10 mg PO DAILY Vraylar 6 mg capsule 6 mg PO DAILY mecobalamin (vitamin B12) 10,000 mcg recon soln 10,000 mcg subcut .qm Breo Ellipta 100-25 mcg/dose blister with device 1 inh inhalation DAILY ondansetron 8 mg tablet,disintegrating 8 mg PO Q8H PRN (Reason: nausea and vomiting) Qty: 14 0RF divalproex 500 mg tablet extended release 24 hr 500 mg PO DAILY levothyroxine [Euthyrox] 50 mcg tablet 50 mcg PO DAILY calcium carbonate [Calcium 600] 600 mg calcium (1,500 mg) tablet 600 mg PO DAILY cholecalciferol (vitamin D3) 50 mcg (2,000 unit) capsule 50 mcg PO DAILY folic acid 400 mcg tablet 0.4 mg PO DAILY atorvastatin 20 mg tablet 20 mg PO QHS venlafaxine 37.5 mg capsule,extended release 24hr 37.5 mg PO DAILY metformin 500 mg tablet 500 mg PO BID ibuprofen 600 mg tablet 600 mg PO TID PRN (Reason: pain) Qty: 30 0RF ondansetron 4 mg tablet,disintegrating 4 mg PO Q8H PRN (Reason: nausea and vomiting) Qty: 7 0RF metronidazole 500 mg tablet 500 mg PO Q6H 10 Days Qty: 39 0RF Rx Instructions: received first dose in ED 10/08 oxycodone 5 mg capsule 5 mg PO Q8H PRN (Reason: pain) Qty: 7 0RF lorazepam 0.5 mg tablet 0.5 mg PO BID PRN (Reason: anxiety) Qty: 14 0RF Date of admission: 10/15/24 14:52 Primary Care Provider: Jamia Valencia Admitting Provider: Blayne Vegas Attending physician on admission: Blayne Vegas Condition: Stable
--- NOTE | 2024-10-18 14:42 | PM.PNGS ---
Progress Note: A&P Assessment and Plan (1) Diverticulitis of colon with perforation: Code(s): K57.20 - Diverticulitis of large intestine with perforation and abscess without bleeding Status: Acute Assessment and Plan: exam benign, cont low fiber diet, home c abx (2) C. difficile colitis: Code(s): A04.72 - Enterocolitis due to Clostridium difficile, not specified as recurrent Status: Acute Assessment and Plan: exam benign, diarrhea improved, abx Subjective Subjective Date/Time Seen: 10/18/24 14:42 Interval history: feels good, alejandra diet, +bowel fxn Review of Systems Review of Systems: All systems reviewed & are unremarkable except as noted in HPI and below Exam Const: General: cooperative, comfortable and no acute distress Resp: Auscultation: clear to auscultation bilaterally Cardio: Rate: regular rate Rhythm: regular rhythm GI: Inspection: normal to inspection and non-distended GI Palp: No abdominal tenderness and Yes Soft to palpation Objective Data Vital Signs Vital Signs: Vital Signs - 24 hr 10/17/24 20:00 10/17/24 22:00 10/18/24 06:00 Temperature 36.8 C 36.7 C Pulse Rate 80 63 Respiratory Rate 18 18 Blood Pressure 151/61 H 106/49 L Pulse Oximetry 99 98 Oxygen Delivery Room Air 10/18/24 08:57 Temperature Pulse Rate Respiratory Rate 18 Blood Pressure Pulse Oximetry 98 Oxygen Delivery Room Air Intake/Output Intake/Output: Intake & Output 10/15/24 10/16/24 10/17/24 10/18/24 23:59 23:59 23:59 23:59 Intake Total 4240 2110 1040 720 Balance 4240 2110 1040 720 Meds/Results Radiology Results: ITS Impressions Abdomen/Pelvis CT 10/14/24 13:32 IMPRESSION: Interval progression of sigmoid diverticulitis now with a contained perforation. No drainable fluid collection or gross free air.
== END 2024-10-18 12:35 | disposition home or self-care (01) | DRG 392 ==
LOC: ANHED 14:30 → ANH2MED 16:12
PROVIDERS: Emergency Medicine; Nurse Practitioner Family; Admitting Provider Internal Medicine; Emergency Provider Physician Assistant; PCP Family Medicine; Visit Provider Internal Medicine
DX: K57.20 Diverticulitis of large intestine with perforation and abscess without bleeding (principal); A04.72 Enterocolitis due to Clostridium difficile, not specified as recurrent; I12.9 Hypertensive chronic kidney disease with stage 1 through stage 4 chronic kidney disease, or unspecified chronic kidney disease; E11.22 Type 2 diabetes mellitus with diabetic chronic kidney disease; N18.2 Chronic kidney disease, stage 2 (mild); E03.9 Hypothyroidism, unspecified; J44.9 Chronic obstructive pulmonary disease, unspecified; F31.9 Bipolar disorder, unspecified; K58.9 Irritable bowel syndrome, unspecified; F17.210 Nicotine dependence, cigarettes, uncomplicated; E66.9 Obesity, unspecified; Z68.34 Body mass index [BMI] 34.0-34.9, adult
CPT/HCPCS: 36415; 74177; 80048; 80053; 81001; 81025; 82948; 83605; 83690; 83735; 85025; 87040; 87045; 87427; 87449; 87493; 96361; 96365; 96375; 96376; 99285; A9270; G0378; J1650; J2270; J2405; J2543; J7030; Q9967

== ENCOUNTER 2025-01-12 09:40 | Emergency (ER) | payer MEDICARE, SELFPAY ==
[2025-01-12 09:45] VITALS: BP 139/78; PULSE 114; RESP 14; TEMP 36.8; O2SAT 100
--- NOTE | 2025-01-12 09:48 | ED.GENADULT ---
HPI - General Adult General Chief complaint: Skin/Abscess/Foreign Body Stated complaint: Shingles Source: patient Mode of arrival: ambulatory Limitations: no limitations History of Present Illness HPI narrative: patient is a 54-year-old female presenting with complaint of painful rash to the left lower back. Reports rash was noted 2 days ago. Reports history of similar rash when diagnosed with shingles. Treatment initiated prior to arrival includes Tylenol. She denies any constitutional symptoms. She is requesting pain pills however, she is under care of pain management. No additional complaints. Related Data Allergies Allergy/AdvReac Type Severity Reaction Status Date / Time No Known Allergies Allergy Verified 01/12/25 09:41 Review of Systems Review of Systems: All systems reviewed & are unremarkable except as noted in HPI and below PMFSH Past Medical History Medical History (Updated 01/12/25 @ 09:59 by Ilan Christianson APRN) Depression with anxiety Tobacco dependence Chronic obstructive pulmonary disease Degenerative disc disease Type 2 diabetes mellitus Hypertension Irritable bowel syndrome Ovarian cyst Stage 2 chronic kidney disease Asthma Hypothyroidism Bipolar disorder Surgical History Surgical History History of bilateral carpal tunnel release History of section Family History Family History Father Alcohol abuse Hypertension Cerebrovascular accident Acute myocardial infarction Mother Alcohol abuse Asthma Son Non-Hodgkins lymphoma Grandparent Lung cancer non-smoker Grandparent Stomach cancer Other No active medical problems Social History Social History Social History: Surrogate medical decision maker: Liliana Neal, daughter. Code status: Full code. Smoking packs per day: 0.5 Smoking cigarettes per day: 10.0 Years smoked: 40 Smoking pack-years: 20.00 Smoking status: Current every day smoker Tobacco type: cigarettes Second hand tobacco smoke exposure: Yes Alcohol intake: never Substance use: never Substance use type: marijuana Other substance usage details: daily Do You Feel Safe in your Home?: Yes Lack of Transportation: No Lack of Food: Never True Current Housing: I Have Housing Concerned About Future Housing: No Difficulty Paying Gas/Electric Bills: YES Difficulty Paying for Meds: No Currently Unemployed: YES Education: High School Diploma/GED Difficulty w/ Childcare or Family Care: No Living arrangements: with family Occupation/Education: unemployed Spiritual care concerns: No Agree to blood products: Yes Exam Narrative: GENERAL: Well-appearing, well-nourished, and in no acute distress. HEAD: Normocephalic EYES: EOMI. ENT: Mucous membranes pink and moist. NECK: Normal AROM. Supple. CHEST: No respiratory distress. HEART: Regular rate MUSCULOSKELETAL: No bony tenderness. EXTREMITIES: Normal range of motion. No edema. SKIN: clustered, erythematous vesicular eruption (quarter sized) noted to left lower back, immediately lateral to the lumbar spine. There is no evidence of secondary bacterial skin infection. Warm, dry. Capillary refill normal. Normal skin turgor. NEURO: No focal deficits. Alert and oriented x3. Gait steady. PSYCH: Normal affect. Course Course Level of Care: [facility] Care Visit Discharge Plan Discharge Clinical Impression: Herpes zoster Qualifiers: Herpes zoster complications: without complications Qualified Code(s): B02.9 - Zoster without complications Patient Disposition: Home Condition: Stable Instructions: Shingles (ED) Additional Instructions: Go straight to ER should your symptoms become worse or should any new symptoms develop Patient Language: Azeri Prescriptions: New valacyclovir 1 gram tablet 1,000 mg PO TID Qty: 21 0RF prednisone 20 mg tablet 60 mg PO DAILY Qty: 15 0RF No Action acetaminophen 500 mg capsule 1,000 mg PO Q6H PRN (Reason: pain) Qty: 30 0RF Follow-up/Referrals: Jamia Valencia MD [Primary Care Provider] - 01/12/25 9:52 am Time of Disposition: 09:52
== END 2025-01-12 10:07 | disposition home or self-care (01) ==
PROVIDERS: Emergency Provider Registered Nurse; PCP Family Medicine
DX: B02.9 Zoster without complications (principal); F17.210 Nicotine dependence, cigarettes, uncomplicated; J44.9 Chronic obstructive pulmonary disease, unspecified; I12.9 Hypertensive chronic kidney disease with stage 1 through stage 4 chronic kidney disease, or unspecified chronic kidney disease; E11.22 Type 2 diabetes mellitus with diabetic chronic kidney disease; N18.2 Chronic kidney disease, stage 2 (mild); E03.9 Hypothyroidism, unspecified
CPT/HCPCS: 99213; G0463